=== PATIENT | female | born 1945 | race Caucasian/White ===

== ENCOUNTER 2018-08-14 01:16 | Emergency (ER) | payer MEDICARE, OTHER, SELFPAY ==
[2018-08-14 01:24] VITALS: BP 196/79; PULSE 86; RESP 16; TEMP 36.9; O2SAT 99
--- NOTE | 2018-08-14 01:40 | DI.CT_ITS ---
SYMPTOMS/DIAGNOSIS: RUQ PAIN CT OF THE ABDOMEN AND PELVIS: Images were performed from the lung bases through the ischial tuberosities after IV and without oral contrast. The lung bases are clear. A small cyst is seen in the liver. The gallbladder, spleen, pancreas, adrenals and kidneys are unremarkable. There are a few tiny right renal cysts. No renal calculi or hydronephrosis is seen. The urinary bladder, uterus and ovaries are unremarkable. There a few scattered diverticula in the sigmoid colon. There is no evidence of diverticulitis. There is a moderate quantity of stool. The appendix appears normal. The aorta is normal in diameter. IMPRESSION: No acute abnormality.
--- NOTE | 2018-08-14 01:42 | W.ED.GENAD ---
Discharge Plan Disposition Patient Disposition: HOME Condition: Good Discharge Details Chief Complaint: Abd Prob Clinical Impression: Upper abdominal pain Primary Care Provider: Dorothy Gibbs ED Provider: Isai Rosenthal Saline Meds and New Rx's Prescriptions: New sucralfate [Carafate] 1 gram tablet 1 gm PO QACHS Qty: 120 RF: 0 pantoprazole [Protonix] 40 mg tablet,delayed release (DR/EC) 40 mg PO DAILY Qty: 30 RF: 0 Continued ProAir HFA 8.5 GM HFA aerosol inhaler 2 puff Inhalation Q4H PRN Qty: 3 RF: 12 losartan 100 mg tablet 100 mg PO DAILY Qty: 90 RF: 12 simvastatin 40 mg tablet 40 mg PO HS Qty: 90 RF: 4 lorazepam 0.5 mg tablet 0.5 mg PO BID PRN (Reason: anxiety) Qty: 60 RF: 0 Discontinued famotidine 20 mg tablet 20 mg PO HS Qty: 90 RF: 4 Discharge Instructions Instructions: Abdominal Pain (ED) Additional Instructions: Your laboratory studies and your CT scan were unremarkable today. Pain seemed to get better with treatment for acid related disease so we will continue on oral medications. Please follow-up with your primary care in a couple of weeks for reevaluation and possible referral for endoscopy. Avoid alcohol, caffeine, nonsteroidals. Return to emergency department if you develop fever, worsening abdominal pain, chest pain, shortness of breath, black or bloody stool, bloody emesis. Referrals: Dorothy Gibbs MD, [place] [Primary Care Provider] - Medical Decision Making Patient presents with right upper quadrant pain that radiated through to the back. It is better now and it is unclear whether it is related to her taking hydrocodone versus resolving on its own. Had similar pain the night before as well. No associated fever, nausea, vomiting. No shortness of breath or pleuritic pain. Saturations are normal. No chest pain. No urinary symptoms. Differential includes gallbladder disease, acid related disease. Less likely pulmonary or cardiac process. Negative cardiac stress test in 2016. Abdominal exam at this point is benign. We will place an IV and get laboratory studies including one troponin. EKG to rule out evidence of ischemia though seems unlikely given her description. CT scan of the abdomen pelvis. 04:00 - Labs are unremarkable. White count is normal. Hemoglobin is normal. Kidney function baseline. LFTs and lipase normal. Troponin negative. CT scan of the abdomen/pelvis with IV contrast is unremarkable. Specifically the liver, gallbladder and pancreas are normal. On reevaluation patient states pain is coming back and radiating into the back again. On exam she continues to have a benign abdomen. Pain is epigastric/right upper quadrant and through to the back. It is not pleuritic. It is not in her chest. She is not short of breath. At this point I am leaning towards acid related disease/ulcer. On questioning she drinks coffee daily. She takes Excedrin Migraine, which includes aspirin and caffeine, on a regular basis for headaches. She does drink wine as well. She has been under a fair amount of stress with the loss of her just over a month ago. Going to go ahead and try a dose of IV Protonix and oral Carafate and reevaluate. 05:30 -patient is feeling better at this point. Pain is almost gone after IV Protonix and oral Carafate. She also had some IV Zofran. Have discussed with her the possibility of acid related disease/ulcer. We will start her on Protonix and Carafate for the next couple of weeks. Have her follow-up with primary care for reevaluation and possible referral for endoscopy. Back off on the amount of caffeine and Excedrin Migraine she uses. Return to ED for fever, worsening pain, black or bloody stool, bloody emesis, chest pain, shortness of breath. Medical Records Medical records reviewed: Yes I reviewed the patient's medical records. Lab Data Lab results reviewed: Yes I reviewed the patient's lab results. ECG Data Attestation: I personally reviewed and interpreted this ECG (s) as follows: Prior ECG tracings: not available for review Interpretation: Normal sinus rhythm at 87 with 1 PVC. Normal axis and intervals otherwise. No ST changes. HPI General Mode of arrival: ambulatory. Date/Time Provider Initiated Documentation: 08/14/18 01:33. Limitations to Documentation: no limitations. Information obtained by: patient, RN notes reviewed and old records reviewed. HPI Narrative: Patient presents with right upper quadrant abdominal pain. Initially noticed it one night ago. Seem to go away during the day. Came back tonight and was severe. It radiated straight through to the back. No associated nausea/vomiting. No fever that she is aware of. No chest pain. No pleuritic component. No shortness of breath. She ended up taking 1 of her late 's hydrocodone around midnight. Pain is now better but bothered her enough that she came into be evaluated. She has not had pain like this previously. She has had no abdominal surgeries other than a tubal ligation. Related Data Home Medications Medication Instructions Recorded Confirmed ProAir HFA 2 puff INHALATION Q4H PRN #3 03/17/16 08/14/18 canister losartan 100 mg tablet 100 mg PO DAILY #90 tab-cap 07/04/18 08/14/18 simvastatin 40 mg tablet 40 mg PO HS #90 tab-cap 07/08/18 08/14/18 lorazepam 0.5 mg tablet 0.5 mg PO BID PRN #60 tab 08/08/18 pantoprazole [Protonix] 40 mg PO DAILY #30 tab 08/14/18 sucralfate [Carafate] 1 gm PO QACHS #120 tab 08/14/18 Previous Rx's Medication Instructions Recorded losartan 100 mg tablet 100 mg PO DAILY #90 tab-cap 07/04/18 simvastatin 40 mg tablet 40 mg PO HS #90 tab-cap 07/08/18 lorazepam 0.5 mg tablet 0.5 mg PO BID PRN #60 tab 08/08/18 pantoprazole [Protonix] 40 mg PO DAILY #30 tab 08/14/18 sucralfate [Carafate] 1 gm PO QACHS #120 tab 08/14/18 Allergies Allergy/AdvReac Type Severity Reaction Status Date / Time bupropion Allergy Severe Anaphylaxis Unverified 08/14/18 01:28 Penicillins Allergy Mild Large Unverified 08/14/18 01:28 local reaction from IM injection codeine AdvReac Mild Constipatio Unverified 08/14/18 01:28 n lisinopril AdvReac Mild Cough Unverified 08/14/18 01:28 erythromycin base AdvReac Unverified 08/14/18 01:28 General Stated Complaint: Abd Prob BORIS: 3 Review of Systems Constitutional Denies chills, Denies fever(s), Denies headache(s), Denies malaise, Denies poor appetite and Denies weakness Eyes Denies change in vision, Denies eye discharge and Denies eye pain ENT Denies otalgia, Denies facial pain, Denies headache(s), Denies nasal congestion, Denies neck pain, Denies sinus pain and Denies sore throat Cardiovascular Denies chest pain, Denies diaphoresis, Denies syncope, Denies pedal edema, Denies edema, Denies lightheadedness, Denies palpitations and Denies dyspnea Respiratory Denies cough and Denies dyspnea Gastrointestinal Reports abdominal pain, Denies bloating, Denies diarrhea, Denies nausea, Denies vomiting and Denies hematemesis Genitourinary Denies hematuria, Denies dysuria, Denies pelvic pain and Denies flank pain Musculoskeletal Reports back pain, Denies myalgias, Denies arthralgias, Denies neck pain and Denies numbness Integumentary/Breasts Denies rash Neurologic Denies confusion, Denies syncope, Denies headache(s), Denies focal weakness, Denies numbness and Denies weakness Psychiatric Denies confusion Endocrine Denies palpitations COUNT INCLUDES THE [facility] Medical History Asthma (Chronic) GERD (gastroesophageal reflux disease) (Chronic) HTN (hypertension) (Chronic) Hypercholesterolemia (Chronic) Surgical History EYE SURGERY (Inactive) Open Carpal Tunnel release (Inactive) S/P tubal ligation (Inactive) Family History Mother PMR (polymyalgia rheumatica) Father Diabetes Essential hypertension Depression Heart disease Hyperlipidemia Stroke Brother Essential hypertension Hyperlipidemia Brother Diabetes Essential hypertension Heart disease Hyperlipidemia Stroke Brother Essential hypertension Heart disease Hyperlipidemia Grandfather Neoplasm Asthma Grandfather Stroke Grandmother Diabetes Heart disease Neoplasm Grandmother No problems noted. Daughter Asthma Daughter Asthma Social History Smoking and Tabacco status: Never Exam Const General: cooperative, comfortable and no acute distress Orientation: alert and oriented x3 HENMT Head: normocephalic and atraumatic Mouth: moist mucous membranes Eyes Sclera: sclerae normal Neck Neck: normal visual inspection, trachea midline and supple Chest Chest: no tenderness Resp Effort & Inspection: normal respiratory effort Auscultation: clear to auscultation bilaterally Cardio Rate: regular rate Rhythm: regular rhythm Heart Sounds: S1 normal and S2 normal Pulses: radial pulses present GI Inspection: normal to inspection and non-distended Palpation: soft, no hepatosplenomegaly, not firm, no guarding and nontender Auscultation: normal bowel sounds Back/Spine/Pelvis Back: no CVA tenderness Skin Rashes: no rashes Neuro General: alert, oriented x3, gait normal, no focal motor deficits and CN's II-XI intact bilaterally Extrem General: normal to inspection, full ROM and no clubbing, cyanosis or edema Course Vital Signs Temperature 98.4 F 08/14/18 01:24 Pulse 86 08/14/18 01:24 Respiratory Rate 16 08/14/18 01:24 Blood Pressure 196/79 H 08/14/18 01:24 Pulse Oximetry 99 08/14/18 01:24 Temperature 98.4 F 08/14/18 01:24 Temperature Source Temporal Artery Scan 08/14/18 01:24 Pulse 86 08/14/18 01:24 Respiratory Rate 16 08/14/18 01:24 Blood Pressure 196/79 H 08/14/18 01:24 Blood Pressure Position Sitting 08/14/18 01:24 Pulse Oximetry 99 08/14/18 01:24 Oxygen Delivery Method Room Air 08/14/18 01:24 Oxygen Flow Rate 0 08/14/18 01:24 Pain Level 8 08/14/18 01:33
--- NOTE | 2018-08-14 01:52 | ED.GENADUL_ITS ---
Discharge Plan Disposition Patient Disposition: HOME Condition: Good Discharge Details Chief Complaint: Abd Prob Clinical Impression: Upper abdominal pain Primary Care Provider: Dorothy Gibbs ED Provider: Isai Rosenthal [place] Meds and New Rx's Prescriptions: New sucralfate [Carafate] 1 gram tablet 1 gm PO QACHS Qty: 120 RF: 0 pantoprazole [Protonix] 40 mg tablet,delayed release (DR/EC) 40 mg PO DAILY Qty: 30 RF: 0 Continued ProAir HFA 8.5 GM HFA aerosol inhaler 2 puff Inhalation Q4H PRN Qty: 3 RF: 12 losartan 100 mg tablet 100 mg PO DAILY Qty: 90 RF: 12 simvastatin 40 mg tablet 40 mg PO HS Qty: 90 RF: 4 lorazepam 0.5 mg tablet 0.5 mg PO BID PRN (Reason: anxiety) Qty: 60 RF: 0 Discontinued famotidine 20 mg tablet 20 mg PO HS Qty: 90 RF: 4 Discharge Instructions Instructions: Abdominal Pain (ED) Additional Instructions: Your laboratory studies and your CT scan were unremarkable today. Pain seemed to get better with treatment for acid related disease so we will continue on oral medications. Please follow-up with your primary care in a couple of weeks for reevaluation and possible referral for endoscopy. Avoid alcohol, caffeine, nonsteroidals. Return to emergency department if you develop fever, worsening abdominal pain, chest pain, shortness of breath, black or bloody stool, bloody emesis. Referrals: Dorothy Gibbs MD, [place] [Primary Care Provider] - Medical Decision Making Patient presents with right upper quadrant pain that radiated through to the back. It is better now and it is unclear whether it is related to her taking hydrocodone versus resolving on its own. Had similar pain the night before as well. No associated fever, nausea, vomiting. No shortness of breath or pleuritic pain. Saturations are normal. No chest pain. No urinary symptoms. Differential includes gallbladder disease, acid related disease. Less likely pulmonary or cardiac process. Negative cardiac stress test in 2016. Abdominal exam at this point is benign. We will place an IV and get laboratory studies including one troponin. EKG to rule out evidence of ischemia though seems unlikely given her description. CT scan of the abdomen pelvis. 04:00 - Labs are unremarkable. White count is normal. Hemoglobin is normal. K idney function baseline. LFTs and lipase normal. Troponin negative. CT scan of the abdomen/pelvis with IV contrast is unremarkable. Specifically the liver, gallbladder and pancreas are normal. On reevaluation patient states pain is coming back and radiating into the back again. On exam she continues to have a benign abdomen. Pain is epigastric/right upper quadrant and through to the back. It is not pleuritic. It is not in her chest. She is not short of breath. At this point I am leaning towards acid related disease/ulcer. On questioning she drinks coffee daily. She takes Excedrin Migraine, which includes aspirin and caffeine, on a regular basis for headaches. She does drink wine as well. She has been under a fair amount of stress with the loss of her just over a month ago. Going to go ahead and try a dose of IV Protonix and oral Carafate and reevaluate. 05:30 -patient is feeling better at this point. Pain is almost gone after IV Protonix and oral Carafate. She also had some IV Zofran. Have discussed with her the possibility of acid related disease/ulcer. We will start her on Protonix and Carafate for the next couple of weeks. Have her follow-up with [facility] care for reevaluation and possible referral for endoscopy. Back off on the amount of caffeine and Excedrin Migraine she uses. Return to ED for fever, worsening pain, black or bloody stool, bloody emesis, chest pain, shortness of breath. Medical Records Medical records reviewed: Yes I reviewed the patient's medical records. Lab Data Lab results reviewed: Yes I reviewed the patient's lab results. ECG Data Attestation: I personally reviewed and interpreted this ECG (s) as follows: Prior ECG tracings: not available for review Interpretation: Normal sinus rhythm at 87 with 1 PVC. Normal axis and intervals otherwise. No ST changes. HPI General Mode of arrival: ambulatory . Date/Time Provider Initiated Documentation: 08/14/18 01:33 . Limitations to Documentation: no limitations . Information obtained by: patient, RN notes reviewed and old records reviewed . HPI Narrative: Patient presents with right upper quadrant abdominal pain. Initially noticed it one night ago. Seem to go away during the day. Came back tonight and was severe. It radiated straight through to the back. No associated nausea/vomiting. No fever that she is aware of. No chest pain. No pleuritic component. No shortness of breath. She ended up taking 1 of her late 's hydrocodone around midnight. Pain is now better but bothered her enough that she came into be evaluated. She has not had pain like this previously. She has had no abdominal surgeries other than a tubal ligation. Related Data Home Medications Medication Instructions Recorded Confirmed ProAir HFA 2 puff INHALATION Q4H PRN #3 03/17/16 08/14/18 canister losartan 100 mg tablet 100 mg PO DAILY #90 tab-cap 07/04/18 08/14/18 simvastatin 40 mg tablet 40 mg PO HS #90 tab-cap 07/08/18 08/14/18 lorazepam 0.5 mg tablet 0.5 mg PO BID PRN #60 tab 08/08/18 pantoprazole [Protonix] 40 mg PO DAILY #30 tab 08/14/18 sucralfate [Carafate] 1 gm PO QACHS #120 tab 08/14/18 Previous Rx's Medication Instructions Recorded losartan 100 mg tablet 100 mg PO DAILY #90 tab-cap 07/04/18 simvastatin 40 mg tablet 40 mg PO HS #90 tab-cap 07/08/18 lorazepam 0.5 mg tablet 0.5 mg PO BID PRN #60 tab 08/08/18 pantoprazole [Protonix] 40 mg PO DAILY #30 tab 08/14/18 sucralfate [Carafate] 1 gm PO QACHS #120 tab 08/14/18 Allergies Allergy/AdvReac Type Severity Reaction Status Date / Time bupropion Allergy Severe Anaphylaxis Unverified 08/14/18 01:28 Penicillins Allergy Mild Large Unverified 08/14/18 01:28 local reaction from IM injection codeine AdvReac Mild Constipatio Unverified 08/14/18 01:28 n lisinopril AdvReac Mild Cough Unverified 08/14/18 01:28 erythromycin base AdvReac Unverified 08/14/18 01:28 General Stated Complaint: Abd Prob BORIS: 3 Review of Systems Constitutional Denies chills, Denies fever(s), Denies headache(s), Denies malaise, Denies poor appetite and Denies weakness Eyes Denies change in vision, Denies eye discharge and Denies eye pain ENT Denies otalgia, Denies facial pain, Denies headache(s), Denies nasal congestion, Denies neck pain, Denies sinus pain and Denies sore throat Cardiovascular Denies chest pain, Denies diaphoresis, Denies syncope, Denies pedal edema, Denies edema, Denies lightheadedness, Denies palpitations and Denies dyspnea Respiratory Denies cough and Denies dyspnea Gastrointestinal Reports abdominal pain, Denies bloating, Denies diarrhea, Denies nausea, Denies vomiting and Denies hematemesis Genitourinary Denies hematuria, Denies dysuria, Denies pelvic pain and Denies flank pain Musculoskeletal Reports back pain, Denies myalgias, Denies arthralgias, Denies neck pain and Denies numbness Integumentary/Breasts Denies rash Neurologic Denies confusion, Denies syncope, Denies headache(s), Denies focal weakness, Denies numbness and Denies weakness Psychiatric Denies confusion Endocrine Denies palpitations [facility] Medical History Asthma (Chronic) GERD (gastroesophageal reflux disease) (Chronic) HTN (hypertension) (Chronic) Hypercholesterolemia (Chronic) Surgical History EYE SURGERY (Inactive) Open Carpal Tunnel release (Inactive) S/P tubal ligation (Inactive) Family History Mother PMR (polymyalgia rheumatica) Father Diabetes Essential hypertension Depression Heart disease Hyperlipidemia Stroke Brother Essential hypertension Hyperlipidemia Brother Diabetes Essential hypertension Heart disease Hyperlipidemia Stroke Brother Essential hypertension Heart disease Hyperlipidemia Grandfather Neoplasm Asthma Grandfather Stroke Grandmother Diabetes Heart disease Neoplasm Grandmother No problems noted. Daughter Asthma Daughter Asthma Social History Smoking and Tabacco status: Never Exam Const General: cooperative, comfortable and no acute distress Orientation: alert and oriented x3 HENMT Head: normocephalic and atraumatic Mouth: moist mucous membranes Eyes Sclera: sclerae normal Neck Neck: normal visual inspection, trachea midline and supple Chest Chest: no tenderness Resp Effort & Inspection: normal respiratory effort Auscultation: clear to auscultation bilaterally Cardio Rate: regular rate Rhythm: regular rhythm Heart Sounds: S1 normal and S2 normal Pulses: radial pulses present GI Inspection: normal to inspection and non-distended Palpation: soft, no hepatosplenomegaly, not firm, no guarding and nontender Auscultation: normal bowel sounds Back/Spine/Pelvis Back: no CVA tenderness Skin Rashes: no rashes Neuro General: alert, oriented x3, gait normal, no focal motor deficits and CN's II-XI intact bilaterally Extrem General: normal to inspection, full ROM and no clubbing, cyanosis or edema Course Vital Signs Temperature 98.4 F 08/14/18 01:24 Pulse 86 08/14/18 01:24 Respiratory Rate 16 08/14/18 01:24 Blood Pressure 196/79 H 08/14/18 01:24 Pulse Oximetry 99 08/14/18 01:24 Temperature 98.4 F 08/14/18 01:24 Temperature Source Temporal Artery Scan 08/14/18 01:24 Pulse 86 08/14/18 01:24 Respiratory Rate 16 08/14/18 01:24 Blood Pressure 196/79 H 08/14/18 01:24 Blood Pressure Position Sitting 08/14/18 01:24 Pulse Oximetry 99 08/14/18 01:24 Oxygen Delivery Method Room Air 08/14/18 01:24 Oxygen Flow Rate 0 08/14/18 01:24 Pain Level 8 08/14/18 01:33
[2018-08-14] MEDS: Lactated Ringers 1,000 ML 125 ML IV (02:06)
[2018-08-14] MEDS: Normal Saline Flush 10 ML SYR IVP ×3 (02:07→04:44)
[2018-08-14 02:11] LABS: Abs Immature Grans 0.02 k/cumm (0.0-0.09); Absolute Basophil Count 0.06 k/cumm (0.0-0.2); Absolute Lymphocyte Count 3.06 k/cumm (1.2-3.4); Absolute Monocyte Count 0.85 k/cumm (0.11-0.7); Absolute Neutrophil Count 3.52 k/cumm (1.2-6.7); Basophils % 0.7; Eosinophils % 6.2; HCT 40.8 % (36.0-46.0); HGB 13.4 g/dL (12.0-15.5); Immature Grans % 0.2; Lymphocytes % 38.2; Mean Corp. HGB Concentration 32.8 g/dL (32.0-36.0); Mean Corpuscular Hemoglobin 30.1 pg (27.0-33.0); Mean Corpuscular Volume 91.7 fL (80-95); Mean Platelet Volume 11.3 fL (8.0-11.0); Monocytes % 10.6; Neutrophils % 44.1; Platelet Count 278 x1000/uL (130-400); RBC 4.45 m/cumm (4.00-5.20); RBC Distribution Width 12.4 % (11.7-14.6); White Blood Cell Count 8.01 k/cumm (4.4-10.8)
[2018-08-14 02:24] LABS: ALT 25 U/L (12-78); AST 20 U/L (15-37); Alkaline Phosphatase 71 U/L (46-116); Anion Gap 8.6 mmol/L (3-11); BUN 21 mg/dL (7-18); Bilirubin, Total 0.4 mg/dL (0.2-1.0); CO2 29.4 mmol/L (21.0-32.0); CREATININE 1.13 mg/dL (0.55-1.02); Calcium 9.1 mg/dL (8.5-10.1); Chloride 104 mmol/L (98-107); Glucose 112 mg/dL (70-100); Lipase 171 U/L (73-393); Magnesium 2.1 mg/dL (1.8-2.4); Potassium 3.9 mmol/L (3.5-5.1); Sodium 142 mmol/L (136-145); Total Protein 7.8 g/dL (6.4-8.2); Troponin I < 0.02 ng/mL (0.00-0.06)
[2018-08-14] MEDS: Omnipaque 350 MG/ML 100 ML BTL IJ (02:35)
--- NOTE | 2018-08-14 03:37 | DI.VRAD_ITS ---
EXAM: CT Abdomen and Pelvis With Contrast EXAM DATE/TIME: 08/14/2018 1:42 AM CLINICAL HISTORY: 72 years old, female; Pain; Abdominal pain; Localized; Right upper quadrant (ruq); Patient HX: Ruq pain; Per PT: Pain traveling from under rib to back TECHNIQUE: Axial computed tomography images of the abdomen and pelvis with intravenous contrast. Coronal and sagittal reformatted images were created and reviewed. COMPARISON: No relevant prior studies available. FINDINGS: Lower thorax: Unremarkable. ABDOMEN: Liver: No suspicious lesions. Gallbladder and bile ducts: No acute or concerning findings. Pancreas: Unremarkable. No ductal dilation. Spleen: No suspicious lesions. Adrenals: Unremarkalbe. No suspicious mass. Kidneys and ureters: Unremarkable. No hydro. No suspicious lesions. Stomach and bowel: Colonic diverticulosis. Appendix: No evidence of appendicitis. PELVIS: Bladder: Unremarkable as visualized. Reproductive: Unremarkable as visualized. ABDOMEN and PELVIS: Intraperitoneal space: No free air. No significant fluid collection. Bones/joints: No acute fracture. No dislocation. Soft tissues: Unremarkable. Vasculature: Unremarkable. No acute findings Lymph nodes: Unremarkable. IMPRESSION: No acute findings. Dictated and Authenticated by: Gaurang Arreaga MD. Ordering:ALAYNA Alex MD
[2018-08-14] MEDS: Sucralfate 1 GM TAB PO (04:14)
[2018-08-14] MEDS: Pantoprazole 40 MG VIAL IVP (04:14)
[2018-08-14] MEDS: Ondansetron 4 MG/2 ML VIAL IVP (04:43)
[2018-08-14 05:15] LABS: Bilirubin Negative (Negative); Blood Negative (Negative); Clarity Clear; Glucose Negative (Negative); Ketones Negative (Negative); Leukocyte Esterase Negative (Negative); Nitrite Negative (Negative); Specific Gravity 1.015 (1.005-1.025); Urobilinogen 0.2 EU/dL (Up TO 0.2); pH 7.5 (5-8)
[2018-08-14 05:44] VITALS: BP 157/69; PULSE 81; RESP 16; O2SAT 100
== END 2018-08-14 05:43 | disposition home or self-care (01) ==
PROVIDERS: Emergency Provider Emergency Medicine; PCP Family Medicine
DX: R10.11 Right upper quadrant pain (principal); R10.13 Epigastric pain; K21.9 Gastro-esophageal reflux disease without esophagitis; I10 Essential (primary) hypertension
CPT/HCPCS: 36415; 80053; 83690; 93005; 96361; 96374; 96375; 99285; 74177; 81003; 83735; 84484; 85025; 93010; J2405; J3490

== ENCOUNTER 2018-09-08 00:36 | Outpatient (CLI) | payer MEDICARE, OTHER, SELFPAY ==
--- NOTE | 2018-09-08 07:04 | DI.RAD_ITS ---
SYMPTOMS/DIAGNOSIS: RLL PAIN, PNEUMONIA, J18.1 PA AND LATERAL CHEST: No priors. The heart is normal in size. The lungs are clear. The mediastinal structures and pleura appear intact. CONCLUSION: Normal chest.
--- NOTE | 2018-09-08 09:43 | DI.MAMMO_ITS ---
SYMPTOMS/DIAGNOSIS: SCREENING, Z12.31 MAMMOGRAM: Mammograms were interpreted according to the usual protocol including computer analysis with CAD system, tomosynthesis and C view imaging. The breast tissue is of moderate radiodensity. When compared with previous images, there is a question regarding interval development of a very small area of nodularity in the subareolar portion of the right breast. This findings suggested on the craniocaudad projection. There are no suspicious calcifications. SUMMARY: Question interval development of a right breast nodule as described above. Further assessment with a craniocaudad compression spot film and ultrasound is recommended. Category 0. Breast density Category B. MQSA ASSESSMENT OF FINDINGS: Incomplete: Needs additional imaging evaluation. Category 0. Patient will receive a letter notifying them of these results. BI-RADS category B. There are scattered areas of fibroglandular density.
[2018-09-08 11:40] LABS: ALT 50 U/L (12-78); AST 21 U/L (15-37); Albumin 4.2 g/dL (3.4-5.0); Alkaline Phosphatase 64 U/L (46-116); BUN 19 mg/dL (7-18); Bilirubin, Total 0.6 mg/dL (0.2-1.0); CREATININE 1.09 mg/dL (0.55-1.02); Calcium 9.9 mg/dL (8.5-10.1); Chloride 106 mmol/L (98-107); Cholesterol 147 mg/dL (50-200); Estimated GFR 49.62 (mL/min/1.73m2); Glucose 98 mg/dL (70-100); HDL Cholesterol 42 mg/dL (40-60); LDL CHOLESTEROL 86 mg/dL (<100); Sodium 144 mmol/L (136-145); Total Protein 7.1 g/dL (6.4-8.2); Triglyceride 108 mg/dL (30-150)
[2018-09-08 12:16] LABS: Vitamin D 25 Total 45.4 ng/ml (30-100)
== END 2018-09-08 00:56 ==
PROVIDERS: PCP Family Medicine; Visit Provider Family Medicine
DX: Z13.21 Encounter for screening for nutritional disorder (principal); R92.8 Other abnormal and inconclusive findings on diagnostic imaging of breast; J18.1 Lobar pneumonia, unspecified organism; M85.80 Other specified disorders of bone density and structure, unspecified site; I10 Essential (primary) hypertension; Z12.31 Encounter for screening mammogram for malignant neoplasm of breast
CPT/HCPCS: 36415; 77063; 77067; 80053; 80061; 82306; 83721; 71046

== ENCOUNTER 2018-09-16 01:41 | Outpatient (CLI) | payer MEDICARE, OTHER, SELFPAY ==
--- NOTE | 2018-09-16 14:10 | DI.COMBO_ITS ---
SYMPTOMS/DIAGNOSIS: F/U ABNORMAL MAMMO, SMALL AREA OF NODULARITY IN SUBAREOLAR PORTION OF RIGHT BREAST ADDITIONAL VIEWS OF THE RIGHT BREAST AND A RIGHT BREAST ULTRASOUND: Additional images are interpreted according to the usual protocol including tomosynthesis and 2D imaging. Additional views of the right breast fail to show a persistent discrete mass. Breast density B. A right breast ultrasound was performed. The upper outer and lower outer quadrants of the right breast were evaluated sonographically. No cystic or solid masses are seen. IMPRESSION: No evidence for malignancy. Yearly mammography is recommended. Category 1. The findings were discussed with the patient on the date of the examination. SA ASSESSMENT OF FINDINGS: Negative. Category 1. Patient will receive a letter notifying them of these results. BI-RADS category B. There are scattered areas of fibroglandular density.
== END 2018-09-16 02:01 ==
PROVIDERS: PCP Family Medicine; Visit Provider Family Medicine
DX: Z12.31 Encounter for screening mammogram for malignant neoplasm of breast (principal); R92.8 Other abnormal and inconclusive findings on diagnostic imaging of breast; N64.59 Other signs and symptoms in breast
CPT/HCPCS: 76642; 77063; 77067

== ENCOUNTER 2019-02-28 10:17 | Outpatient (CLI) | payer MEDICARE, OTHER, SELFPAY ==
--- NOTE | 2019-02-28 09:30 | DI.RAD_ITS ---
SYMPTOM/DIAGNOSIS: RT SHOULDER PAIN M25.511, ? DISLOCATED AND SPONTANEOUS RELOCATED. RIGHT SHOULDER: 02/28 Five views were obtained. There are mild degenerative changes of the acromioclavicular and glenohumeral joints. There is no evidence of acute fracture or dislocation.
== END 2019-02-28 10:37 ==
PROVIDERS: PCP Family Medicine; Visit Provider Family Medicine
DX: M25.511 Pain in right shoulder (principal); M19.011 Primary osteoarthritis, right shoulder
CPT/HCPCS: 73030

== ENCOUNTER 2020-07-16 18:50 | Outpatient (REF) | payer MEDICARE, OTHER, SELFPAY ==
[2020-07-16 22:03] LABS: ALT 43 U/L (14-59); AST 22 U/L (15-37); Albumin 4.3 g/dL (3.4-5.0); Alkaline Phosphatase 77 U/L (46-116); Anion Gap 3.6 mmol/L (3-11); BUN 25 mg/dL (7-18); Bilirubin, Total 0.3 mg/dL (0.2-1.0); CO2 30.4 mmol/L (21.0-32.0); CREATININE 1.26 mg/dL (0.55-1.02); Calcium 10.1 mg/dL (8.5-10.1); Calculated LDL 101 mg/dL (<100); Chloride 104 mmol/L (98-107); Cholesterol 200 mg/dL (<200); Estimated GFR 41.74 (mL/min/1.73m2); Glucose 102 mg/dL (74-106); HDL Cholesterol 46 mg/dL (40-60); Potassium 4.4 mmol/L (3.5-5.1); Sodium 138 mmol/L (136-145); TSH (W/Ref FT4) 1.24 uIU/mL (0.36-3.74); Total Protein 7.5 g/dL (6.4-8.2); Triglyceride 268 mg/dL (<150); Vitamin B12 271 pg/mL (193-986)
[2020-07-18 04:43] LABS: Vitamin D 25 Total 57.6 ng/ml (30-100)
== END 2020-07-16 19:10 ==
LOC: LBN 18:50
PROVIDERS: PCP Family Medicine; Visit Provider Family Medicine
DX: E78.5 Hyperlipidemia, unspecified (principal); F32.9 Major depressive disorder, single episode, unspecified; I10 Essential (primary) hypertension; M81.0 Age-related osteoporosis without current pathological fracture
CPT/HCPCS: 80053; 80061; 82306; 82607; 84443

== ENCOUNTER 2020-07-25 00:47 | Outpatient (CLI) | payer MEDICARE, OTHER, SELFPAY ==
--- NOTE | 2020-07-25 08:00 | DI.RAD_ITS ---
EXAM: XR LUMBAR SPINE COMPLETE CLINICAL HISTORY: LOW BACK PAIN, ACUTE BILAT, M54.5. TECHNIQUE: 2D digital imaging was performed. COMPARISON: No exams were available for comparison FINDINGS: There is a mild right curvature of the lumbar spine. This may be due to patient positioning. There is mild narrowing of the disc spaces L1-L2 and L2-L3. Endplate osteophytes are seen at multiple leve ls of the lumbar spine. There is no spondylolysis or spondylolisthesis. There are degenerative lee ges seen at the facet joints at L4-5 and L5-S1. No acute fracture or subluxation is present. IMPRESSION: Mild degenerative changes in the lumbar spine. DATA REPOSITORY: RADIATION DOSE DELIVERED:
--- NOTE | 2020-07-25 08:00 | DI.MAMMO_ITS ---
EXAM: MG MAMMO SCREENING CLINICAL HISTORY: screening,Z12.39 TECHNIQUE: Bilateral full field digital CC and MLO mammographic images were obtained with 3D tomosyn thesis and utilizing computer aided detection (CAD). COMPARISON: Available for comparison. FINDINGS: Masses/Architectural Distortion: None seen. Microcalcifications: No suspicious pleomorphic-type are seen. Skin Thickening/Nipple Retraction: None. IMPRESSION: 1. No significant interval change with no specific features of malignancy noted. 2. Unless there is more urgent need, screening mammography is recommended, as per [employer] guidelines. BI-RADS Category 1 - Negative Breast Density - Category B - Scattered areas of fibroglandular density Breast density category C or D implies that the patient has dense breast tissue. Dense breast tissue is very common and is not abnormal but dense breast tissue can make it harder to find cancer on a ma mmogram. Also, dense breast tissue may increase their breast cancer risk. This information about the result of the mammogram report was provided to the patient to raise their awareness. Use this report when you speak with the patient about their risks for breast cancer, which includes their family hist ory. At that time, you may recommend for more screening tests (Ultrasound or MRI) as they might be us eful based on their risk. A negative radiographic report should not delay biopsy if a dominant or clinically suspicious mass is present. Up to ten percent of cancers are not identified on mammography. A negative report may reinforce clinical impression. Adenosis and dense breasts may obscure an underlying neoplasm. False positive reports average 6 to 10%. Patient will receive a letter notifying them of these results.
--- NOTE | 2020-07-25 08:00 | DI.DEXA_ITS ---
EXAM: XR DEXA BONE DENSITY W/WO URI CLINICAL HISTORY: osteoporosis,M81.0 TECHNIQUE: COMPARISON: Comparison is 11/18/2005. FINDINGS: Lateral Spine Image: Unremarkable. No compression deformities identified. Left hip: Total T-Score: -2.0. This compares with -1.3 on the prior examination. Total Z-Score: -0.4 T- and Z-scores: Findings are consistent with osteopenia. Lumbar Spine: Total T-Score: -2.1. This compares with -1.3 on the prior examination. Total Z-Score: 0.2 T- and Z-scores: Findings are consistent with osteopenia. IMPRESSION: Osteopenia in the left hip and lumbar spine.
== END 2020-07-25 00:48 | disposition home or self-care (01) ==
LOC: DI 00:47
PROVIDERS: PCP Family Medicine; Visit Provider Family Medicine
DX: Z12.31 Encounter for screening mammogram for malignant neoplasm of breast (principal); M47.816 Spondylosis without myelopathy or radiculopathy, lumbar region; M85.89 Other specified disorders of bone density and structure, multiple sites; M81.0 Age-related osteoporosis without current pathological fracture
CPT/HCPCS: 77063; 77067; 77080; 72110

== ENCOUNTER 2021-05-05 19:11 | Outpatient (REF) | payer MEDICARE, OTHER, SELFPAY ==
[2021-05-07 12:53] LABS: COVID-19 RT-PCR UVMMC Result Negative (Negative)
== END 2021-05-05 19:12 | disposition home or self-care (01) ==
LOC: LBN 19:11
PROVIDERS: PCP Family Medicine; Visit Provider Family Medicine
DX: Z20.822 Contact with and (suspected) exposure to COVID-19 (principal)
CPT/HCPCS: U0003

== ENCOUNTER 2021-08-19 19:14 | Outpatient (CLI) | payer MEDICARE, SELFPAY ==
[2021-08-19 16:55] LABS: Abs Immature Grans 0.02 10^3/uL (0.0-0.06); Absolute Basophil Count 0.09 10^3/uL (0.0-0.2); Absolute Eosinophil Count 0.31 10^3/uL (0.0-0.7); Absolute Lymphocyte Count 2.54 10^3/uL (1.2-3.4); Absolute Monocyte Count 0.89 10^3/uL (0.1-0.8); Absolute Neutrophil Count 4.26 10^3/uL (1.2-6.7); Basophils % 1.1; Eosinophils % 3.8; HGB 12.9 g/dL (11.2-15.7); Immature Grans % 0.2; Lymphocytes % 31.3; MCH 29.9 pg (27.0-33.0); MCHC 32.3 % (32.0-36.0); MCV 92.8 fL (80-95); Neutrophils % 52.6; Nucleated RBC 0 %; Platelet Count 316 10^3/uL (130-400); RBC 4.31 10^6/uL (3.93-5.22); RDW 12.1 % (11.7-14.6); RDW-SD 41.8 fL; WBC 8.11 10^3/uL (4.4-10.8)
[2021-08-19 17:01] LABS: ESR 2 mm/hr (0-30)
[2021-08-19 17:06] LABS: C-Reactive Protein < 0.05 mg/dL (0.0-0.3)
== END 2021-08-19 19:15 | disposition home or self-care (01) ==
LOC: LBO 19:18
PROVIDERS: PCP Family Medicine
DX: M31.6 Other giant cell arteritis (principal)
CPT/HCPCS: 36415; 85652; 85025; 86140

== ENCOUNTER 2021-09-03 01:33 | Outpatient (CLI) | payer MEDICARE, SELFPAY ==
[2021-09-03 08:59] LABS: CREATININE 1.1 mg/dL (0.55-1.02); Estimated GFR 48.69 (mL/min/1.73m2)
[2021-09-03] MEDS: Normal Saline Flush 10 ML SYR IVP (09:12)
[2021-09-03] MEDS: Gadoterate meglumine 20 ML VIAL 11 ML IVP (09:13)
--- NOTE | 2021-09-03 10:10 | DI.MRI_ITS ---
Exam(s) MR ORBIT FACIAL NECK WO/W EXAM: MR ORBIT FACIAL NECK WO/W CLINICAL HISTORY: optic nerve swelling on optometry exam - right TECHNIQUE: Multiplanar multisequence MRI was performed. COMPARISON: MR MR BRAIN WO/W from 09/03/2021 FINDINGS: ORBITS: The anterior and posterior chambers of the globes are intact. The retrobulbar fat is unremark able. Extraocular muscles are unremarkable. OPTIC NERVES: The intracranial and extracranial portions of the optic nerves are within normal limits . Optic chiasm is within normal limits. No MRI evidence of optic neuritis identified. SOFT TISSUES: No abnormality at the level of the lacrimal glands. OTHER FINDINGS: Cavernous sinuses appear unremarkable. Pituitary gland unremarkable. No aneurysms e vident in the field of view of this study. IMPRESSION: No significant findings on this MRI scan of the orbits. DATA REPOSITORY:
--- NOTE | 2021-09-03 10:10 | DI.MRI_ITS ---
Exam(s) MR BRAIN WO/W EXAM: MR BRAIN WO/W CLINICAL HISTORY: optic nerve swelling on optometry exam - right,h47.10 TECHNIQUE: Multiplanar multisequence MRI of the brain was performed. Both noninfused and contrast i nfused sequences were performed. IV Contrast injected was cc Dotarem. COMPARISON: No exams were available for comparison FINDINGS: CEREBRAL PARENCHYMA: No evidence of intracranial hemorrhage, mass effect nor shift of midline structu re. No extraaxial fluid collections. Ventricles are not enlarged nor shifted. There is no significant focal signal abnormality in the cerebellar hemispheres nor within the brenda, m idbrain, and thalami. There is no prominent abnormal signal abnormality in the periventricular white matter. There is a ti ny focus of signal abnormality measuring 3 millimeters in the left periventricular white matter which is a nonspecific finding and is not associated with hemorrhage or surrounding edema nor enhancement following contrast injection and there is also no evidence of restricted diffusion at this level to s uggest that it represents an acute area of ischemia There are no ring enhancing lesions in the brain. There is no abnormal meningeal enhancement. No evidence of microhemorrhages on susceptibility imaging. PITUITARY GLAND: No mass nor parasellar abnormality. No obvious abnormality in the cavernous sinuses. FLOW VOIDS: The expected flow void are noted. No evidence of obvious aneurysm nor obvious vascular ma lformation. PARANASAL SINUSES: The visualized paranasal sinuses appear unremarkable. ORBITS: See separate MRI orbit report IMPRESSION: 1. No significant intracranial findings on this MRI scan of the brain. 2. No abnormal enhancing intracranial finding. DATA REPOSITORY:
== END 2021-09-03 01:53 ==
PROVIDERS: PCP Family Medicine; Visit Provider Family Medicine
DX: H47.10 Unspecified papilledema (principal)
CPT/HCPCS: 70553; 70543; 82565

== ENCOUNTER 2021-09-30 23:46 | Outpatient (RCR) | payer MEDICARE, SELFPAY ==
--- NOTE | 2021-09-30 09:00 | HOLTER_ITS ---
APPROVED REPORT Conclusion This is a 48-hour Holter monitor ordered for tachycardia Predominant rhythm was sinus with an average heart rate of 84. Minimum was 59, maximum 144 There were occasional premature ventricular contractions, rare couplets, no triplets or ventricular t achycardia There were rare isolated premature atrial contractions There were 5 atrial runs, the longest of which was 8 beats in duration There was no atrial fibrillation, no high-grade AV block, no pauses greater than 3 seconds No patient symptoms were reported
== END 2021-10-18 23:59 | disposition home or self-care (01) ==
LOC: RT 23:46
PROVIDERS: PCP Family Medicine; Visit Provider Family Medicine
DX: R00.0 Tachycardia, unspecified (principal); I49.3 Ventricular premature depolarization; I49.1 Atrial premature depolarization
CPT/HCPCS: 93227; 93225; 93226

== ENCOUNTER → 2022-01-22 02:02 | Outpatient (CLI) | payer MEDICARE, SELFPAY ==
--- NOTE | 2022-01-22 06:45 | DI.MAMMO_ITS ---
Exam(s) MAMMO SCREENING EXAM: MAMMO SCREENING CLINICAL HISTORY: screening,z12.39 TECHNIQUE: Mammograms were interpreted according to the usual protocol including computer analysis w [employer] CAD system, tomosynthesis and C-view imaging. COMPARISON: 2011 through 2020 FINDINGS: The breasts are composed of scattered fibroglandular densities, Breast Density category B. No suspicious masses or suspicious microcalcifications are seen. No skin thickening or abnormal axillary lymph nodes are seen. There has been no significant change from prior exams. IMPRESSION: BI-RADS Category 1, Negative mammogram Yearly screening mammography is recommended. Breast Density - Category B, scattered fibroglandular densities. A negative radiographic report should not delay biopsy if a dominant or clinically suspicious mass is present. Up to ten percent of cancers are not identified on mammography. A negative report may reinforce clinical impression. Adenosis and dense breasts may obscure an underlying neoplasm. False positive reports average 6 to 10%. Patient will receive a letter notifying them of these results.
== END ==
PROVIDERS: PCP Family Medicine; Visit Provider Family Medicine
DX: Z12.31 Encounter for screening mammogram for malignant neoplasm of breast (principal)
CPT/HCPCS: 77063; 77067

== ENCOUNTER 2022-02-06 00:59 | Outpatient (CLI) | payer MEDICARE, SELFPAY ==
[2022-02-06 12:55] LABS: ESR 8 mm/hr (0-30)
[2022-02-06 13:06] LABS: ALT 32 U/L (14-59); AST 32 U/L (15-37); Albumin 4.2 g/dL (3.4-5.0); Alkaline Phosphatase 69 U/L (46-116); Anion Gap 9.3 mmol/L (3-11); BUN 19 mg/dL (7-18); Bilirubin, Total 0.8 mg/dL (0.2-1.0); CO2 27.7 mmol/L (21.0-32.0); CREATININE 1.1 mg/dL (0.55-1.02); Calcium 9.4 mg/dL (8.5-10.1); Calculated LDL 79 mg/dL (<100); Chloride 102 mmol/L (98-107); Cholesterol 142 mg/dL (<200); Estimated GFR 48.55 (mL/min/1.73m2); Glucose 99 mg/dL (74-106); HDL Cholesterol 52 mg/dL (40-60); Potassium 4.7 mmol/L (3.5-5.1); Sodium 139 mmol/L (136-145); TSH (W/Ref FT4) 1.76 uIU/mL (0.36-3.74); Total Protein 7.8 g/dL (6.4-8.2); Triglyceride 57 mg/dL (<150)
[2022-02-06 13:07] LABS: Hemoglobin A1C 6.1 % (<5.7)
== END 2022-02-06 01:00 | disposition home or self-care (01) ==
LOC: LOS 00:59
PROVIDERS: PCP Family Medicine; Visit Provider Family Medicine
DX: I10 Essential (primary) hypertension (principal); E78.5 Hyperlipidemia, unspecified; E11.9 Type 2 diabetes mellitus without complications; M85.88 Other specified disorders of bone density and structure, other site; H47.093 Other disorders of optic nerve, not elsewhere classified, bilateral
CPT/HCPCS: 36415; 80053; 80061; 85652; 83036; 84443

== ENCOUNTER 2023-02-11 10:55 | Outpatient (CLI) | payer MEDICARE, SELFPAY ==
[2023-02-11 13:42] LABS: ALT 31 U/L (14-59); AST 18 U/L (15-37); Alkaline Phosphatase 69 U/L (46-116); BUN 19 mg/dL (7-18); Bilirubin, Total 0.8 mg/dL (0.2-1.0); CREATININE 1.2 mg/dL (0.55-1.02); Calculated LDL 63 mg/dL (<100); Chloride 104 mmol/L (98-107); Cholesterol 126 mg/dL (<200); Estimated GFR 47.21 (mL/min/1.73m2); Glucose 98 mg/dL (74-106); HDL Cholesterol 48 mg/dL (40-60); Potassium 4.1 mmol/L (3.5-5.1); Sodium 139 mmol/L (136-145); Total Protein 7.4 g/dL (6.4-8.2); Triglyceride 76 mg/dL (<150)
== END 2023-02-11 10:56 | disposition home or self-care (01) ==
LOC: LOS 10:56
PROVIDERS: PCP Family Medicine; Referring Provider Family Medicine; Visit Provider Family Medicine
DX: I10 Essential (primary) hypertension (principal); E11.9 Type 2 diabetes mellitus without complications; E78.5 Hyperlipidemia, unspecified
CPT/HCPCS: 36415; 80053; 80061; 83036

== ENCOUNTER → 2023-02-24 02:05 | Outpatient (CLI) | payer MEDICARE, SELFPAY ==
--- NOTE | 2023-02-24 07:00 | DI.MAMMO_ITS ---
Exam(s) MAMMO SCREENING EXAM: MAMMO SCREENING CLINICAL HISTORY: screening,z12.39 TECHNIQUE: Bilateral full field digital CC and MLO mammographic images were obtained with 3D tomosyn thesis and utilizing computer aided detection (CAD). COMPARISON: Available for comparison. FINDINGS: Masses/Architectural Distortion: None seen. Microcalcifications: No suspicious pleomorphic-type are seen. Skin Thickening/Nipple Retraction: None. IMPRESSION: 1. No significant interval change with no specific features of malignancy noted. 2. Unless there is more urgent need, screening mammography is recommended, as per [employer] guidelines. BI-RADS Category 1 - Negative Breast Density - Category B - Scattered areas of fibroglandular density Breast density category C or D implies that the patient has dense breast tissue. Dense breast tissue is very common and is not abnormal but dense breast tissue can make it harder to find cancer on a ma mmogram. Also, dense breast tissue may increase their breast cancer risk. This information about the result of the mammogram report was provided to the patient to raise their awareness. Use this report when you speak with the patient about their risks for breast cancer, which includes their family hist ory. At that time, you may recommend for more screening tests (Ultrasound or MRI) as they might be us eful based on their risk. A negative radiographic report should not delay biopsy if a dominant or clinically suspicious mass is present. Up to ten percent of cancers are not identified on mammography. A negative report may reinforce clinical impression. Adenosis and dense breasts may obscure an underlying neoplasm. False positive reports average 6 to 10%. Patient will receive a letter notifying them of these results.
== END ==
PROVIDERS: PCP Family Medicine; Visit Provider Family Medicine
DX: Z12.31 Encounter for screening mammogram for malignant neoplasm of breast (principal)
CPT/HCPCS: 77063; 77067

== ENCOUNTER 2023-05-15 10:34 | Emergency (ER) | payer MEDICARE, SELFPAY ==
[2023-05-15] VITALS (60 sets, daily range): BP systolic 82–152; BP diastolic 27–71; PULSE 65–100; RESP 14–18; TEMP 37.9; O2SAT 89–99
[2023-05-15 11:36] LABS: Abs Immature Grans 0.19 10^3/uL (0.0-0.06); HCT 38.3 % (36.0-46.0); HGB 12.6 g/dL (11.2-15.7); Lactate 1.3 mmol/L (0.6-1.4); MCH 29.6 pg (27.0-33.0); MCHC 32.9 % (32.0-36.0); MCV 90 fL (80-95); MPV 11.3 fL (8.0-11.0); Platelet Count 202 10^3/uL (130-400); RBC 4.25 10^6/uL (3.93-5.22); RDW 12.1 % (11.7-14.6); RDW-SD 39.7 fL; WBC 16.47 10^3/uL (4.4-10.8)
[2023-05-15 11:53] LABS: ALT 26 U/L (14-59); AST 17 U/L (15-37); Albumin 3.6 g/dL (3.4-5.0); Alkaline Phosphatase 64 U/L (46-116); BUN 19 mg/dL (7-18); CREATININE 1.3 mg/dL (0.55-1.02); Calcium 9.8 mg/dL (8.5-10.1); Chloride 96 mmol/L (98-107); Estimated GFR 42.88 (mL/min/1.73m2); Glucose 150 mg/dL (74-106); Potassium 3.9 mmol/L (3.5-5.1); Sodium 130 mmol/L (136-145); Total Protein 7.7 g/dL (6.4-8.2)
[2023-05-15 11:54] LABS: Absolute Lymphocyte Count 0.99 10^3/uL (1.2-3.4); Absolute Neutrophil Count 14.16 10^3/uL (1.2-6.7)
[2023-05-15 11:55] LABS: Absolute Monocyte Count 1.32 10^3/uL (0.1-0.8); Diff Comment Manual Differential; RBC Morphology Normal
[2023-05-15] MEDS: Normal Saline 1,000 ML 1000 ML IV (12:15)
[2023-05-15] MEDS: ACETAMINOPHEN 1,000 MG/100 ML BTL 400 MG IVPB (12:25)
--- NOTE | 2023-05-15 12:30 | DI.CT_ITS ---
Exam(s) CT ABDOMEN PELVIS W EXAM: CT ABDOMEN PELVIS W CLINICAL HISTORY: nausea fever TECHNIQUE: Imaging Protocol: Axial computed tomography images with coronal and sagittal reformatted images were created and reviewed CONTRAST MATERIAL: Intravenous: Omnipaque 350 Contrast volume:100 mL Oral: No COMPARISON: CT CT ABDOMEN PELVIS W from 08/14/2018 FINDINGS: ABDOMEN: Lung Bases: There is a small left pleural effusion. There is a tiny hiatal hernia. Mild dependent a telectasis is seen in the lung bases. Liver: Normal density. There is a stable cyst in the right lobe of the liver. Portal, Superior Mesenteric, and Splenic Veins: Unremarkable. Gallbladder and Biliary Tract: No radiodense calculus or dilation. Pancreas: Normal density, no abnormal calcifications or inflammatory process. Spleen: Normal. Adrenals: No masses seen. Kidneys: Normal size, contour and axis. No radiodense stones or obstructive uropathy. Stable right re nal cysts. No follow-up is recommended. There is mild bilateral perinephric stranding. Abdominal Aorta: Abdominal portion non-dilated. Atherosclerosis. Bowel: There is diverticulosis of the colon without evidence of acute diverticulitis. There is fluid seen within the ascending colon and mild mucosal enhancement. This can be seen with a diarrheal ill ness. There is no evidence of bowel obstruction or bowel wall thickening. No evidence of appendicit is. Peritoneal Cavity: No ascites, collection or mesenteric inflammatory response. No free air. Lymph Nodes: Within normal limits. Bones: Within normal limits for the patient's age. Soft Tissues: Unremarkable. PELVIS: Bladder: Symmetric distention, no gross wall thickening. Reproductive Organs: Unremarkable as visualized. Lymph Nodes: Within normal limits. Bones: Within normal limits for the patient's age. IMPRESSION: 1. Findings in the ascending colon which may represent colitis. Please correlate clinically. 2. Colonic diverticulosis without evidence of acute diverticulitis. 3. Mild bilateral perinephric stranding which is nonspecific. Pyelonephritis should be considered. Please correlate clinically. RADIATION DOSE DELIVERED: Total DLP DATA REPOSITORY: All CT scans at this facility are submitted to the National Radiology Data Registry (NRDR) Dose Index Registry (DIR) with the [employer] ([employer]). RADIATION OPTIMIZATION: All CT scans at this facility use at least one of these dose optimization te chniques: automated exposure control; mA and/or kV adjustment per patient size (includes targeted exa ms where dose is matched to clinical indication); or iterative reconstruction.
[2023-05-15 12:34] LABS: Bilirubin Small (Negative); Blood Moderate (Negative); Clarity Sl Cloudy (Clear); Glucose Negative (Negative); Ketones Negative (Negative); Leukocyte Esterase Negative (Negative); Nitrite Negative (Negative); Specific Gravity >= 1.030 (1.005-1.025); Urobilinogen 0.2 mg/dL (Up to 0.2); pH 5.5 (5-8)
[2023-05-15] MEDS: Ondansetron 4 MG/2 ML VIAL IVP (12:39)
[2023-05-15 12:44] LABS: Bacteria Moderate HPF (Negative); Crystals Negative HPF (Negative); Epithelial Cells Few HPF (Negative); Mucus Heavy (Negative); WBC 0-2 HPF (0-5)
[2023-05-15 12:45] LABS: C & S Indicated? Yes; Casts 0-2 Coarse Granular LPF (Negative)
[2023-05-15 13:11] LABS: Procalcitonin 0.1 ng/mL
[2023-05-15 13:38] LABS: COVID-19 PCR Negative (Negative); Influenza A PCR Negative (Negative); Influenza B PCR Negative (Negative); RSV PCR Negative (Negative)
[2023-05-15 13:47] LABS: Source Nasopharynx
[2023-05-15] MEDS: Omnipaque 350 MG/ML 100 ML BTL IJ (13:58)
[2023-05-15] MEDS: Normal Saline - Diluent 50 ML VIAL IJ (14:00)
[2023-05-15] MEDS: Ketorolac 15 MG/ML VIAL IVP (14:10)
[2023-05-15] MEDS: Prochlorperazine 10 MG/2 ML VIAL 5 MG IVP (14:55)
--- NOTE | 2023-05-15 15:05 | ED.GENADUL_ITS ---
Discharge Plan Disposition Patient Disposition: Home Condition: Improving Discharge Details Clinical Impression: Acute pyelonephritis, Fever Primary Care Provider: Dorothy Gibbs ED Provider: Saad Crook Home Meds and New Rx's Prescriptions: New cefpodoxime 200 mg tablet 200 mg PO BID Qty: 20 0RF Rx Instructions: must administer with a meal/food Continued metoprolol succinate 50 mg tablet extended release 24 hr 75 mg PO DAILY Qty: 135 5RF clonazepam 0.5 mg tablet 0.5 mg PO QHS Qty: 30 0RF Rx Instructions: administer 30 minutes before bedtime losartan 100 mg tablet 100 mg PO DAILY Qty: 90 12RF albuterol sulfate [Ventolin HFA] 90 mcg/actuation HFA aerosol inhaler 2 puff inhalation Q6H PRN (Reason: shortness of breath or wheezing) Qty: 25.5 4RF Shingrix (PF) 50 mcg/0.5 mL suspension for reconstitution 0.5 ml IM ONCE Qty: 1 1RF Rx Instructions: as a single dose. Repeat in 2 months famotidine 40 mg tablet 40 mg PO DAILY Qty: 90 4RF atorvastatin 40 mg tablet 40 mg PO QPM Qty: 90 4RF Discharge Instructions Instructions: Urinary Tract Infection in Women (ED), Fever in Adults (ED) Additional Instructions: At this time your CT imaging shows a possible kidney infection. We have started you on antibiotics and please take these as prescribed. If you have any new or significant worsening of symptoms, are unable to tolerate your antibiotics at home due to nausea and vomiting, or you have further concerns please return immediately to the emergency department for reassessment. Otherwise it is important that you follow-up with your primary care provider early next week for a recheck of your symptoms. Referrals: Dorothy Gibbs MD, [place] [Primary Care Provider] - 3 days Discharge Data Discharge Date/Time-TO BE ENTERED AT DEPARTURE: 05/15/23 17:13 Medical Decision Making Patient presenting the emergency department for chief complaint of fever, confusion, and not feeling well. Patient states that since she has been urinating more and starting to feel more more ill as each day has gone on. She states starting yesterday and today she has been running a fever and having some nausea with some headache. Denies any nasal congestion cough sore throat or respiratory symptoms. Denies any contact with anyone who has been ill, has general confusion but is alert and oriented x3 with no focal neuro complaint. Physical exam is unremarkable, no CVA tenderness, no abdominal tenderness, clear lung sounds, normal HEENT exam no signs of meningitis and again no focal findings. We will plan on checking labs including lactate, procalcitonin, urinalysis urine culture and blood cultures. Pending results will give IV acetaminophen and fluids and Zofran. Review of labs show elevated white count of 16 with elevated neutrophils monocytes and low lymphocytes, slightly low sodium at 130, chloride of 96, BUN slightly elevated at 19 with a creatinine of 1.3 and GFR 42, glucose of 150 otherwise normal CMP. Lactate within normal range of 1.3 and procalcitonin of 0.1. Urinalysis does show high specific gravity urine blood bilirubin negative for leukocyte esterase and nitrite along with no noted white count. Reflexive culture was ordered though in course of fever and also patient having 10-20 RBCs. Patient is negative for COVID flu and RSV. We did proceed with CT imaging given patient continued to have complaints of worsening nausea so she was given Compazine ketorolac for headache and more fluids. Review of CT imaging shows some findings to suggest pyelonephritis with bilateral perinephritic stranding and also some nonspecific findings that could be considered colitis. No other acute emergent findings are noted. Patient reassessed and does state improvement of overall symptoms but still having some slight general confusion. Given patient having fever, nausea, findings to suggest pyelonephritis along with frequent urination I do feel this is more than likely the cause of her symptoms in spite of a negative urinalysis. Patient does have past medical history of hypertension,, GERD, anxiety, diabetes. Patient has listed on her allergies as a local reaction from penicillin as a child. No systemic reaction was noted per patient. Discussed with patient and daughter risk of cephalosporins. After discussion of risk versus benefit both patient and daughter were agreeable to receiving a dose of ceftriaxone here in the emergency department under monitoring and if no reaction patient will be placed on cefpodoxime. Patient sent home with to go bottle of Zofran. After discussion of diagnosis and plan of care patient and daughter has no further needs, questions, or concerns and states clear understanding to return to the emergency department for any worsening symptoms. This documentation was generated using [employer] system, please disregard any oddities of phrase or misspellings. Imaging Data Radiologic Study: Imaging: CT Scan Radiologist's impression: Exam(s) PROCEDURE INFORMATION: Exam: CT Abdomen And Pelvis With Contrast Exam date and time: 05/15/2023 1:51 PM Age: 77 years old Clinical indication: Abdominal pain TECHNIQUE: Imaging protocol: Computed tomography of the abdomen and pelvis with contrast. COMPARISON: CT ABDOMEN PELVIS W 08/14/2018 2:48 AM FINDINGS: Lungs: The visualized lung bases are clear. 7 mm hypodense lesion in the posterior segment of the right hepatic lobe is likely a small cyst. Liver: See Lungs finding. Gallbladder and bile ducts: Normal. No calcified stones. No ductal dilation. Pancreas: Normal. No ductal dilation. Spleen: Normal. No splenomegaly. Adrenal glands: Normal. No mass. Kidneys and ureters: 7 mm hypodense lesion in the upper pole of the right kidney. 7 mm hypodense lesion anteriorly in the midpole of the right kidney. These are too small to characterize adequately but statistically are likely cysts. Mild bilateral perinephric stranding is new since the prior study. Stomach and bowel: There is fluid within the ascending colon with mucosal enhancement. No bowel wall thickening. Diverticula in the sigmoid colon. The small and large bowel are caliber. Appendix: No evidence of appendicitis. Intraperitoneal space: Unremarkable. No free air. No significant fluid collection. Vasculature: Scattered atherosclerotic calcifications of the abdominal aorta. No aneurysmal dilatation. Lymph nodes: Unremarkable. No enlarged lymph nodes. Urinary bladder: Unremarkable as visualized. Reproductive: Unremarkable as visualized. Bones/joints: Degenerative changes of the lumbar spine. No acute bone findings. Soft tissues: Unremarkable. IMPRESSION: 1. The findings in the ascending colon are nonspecific. Colitis should be considered 2. Mild bilateral perinephric stranding is also nonspecific. Pyelonephritis can be considered in the proper clinical setting. 3. Diverticulosis. 4. Probable subcentimeter right renal cysts. Lab Data Lab results reviewed: Yes I reviewed the patient's lab results. HPI General Mode of arrival: ambulatory . Date/Time Provider Initiated Documentation: 05/15/23 11:02 . Limitations to Documentation: no limitations . Information obtained by: patient and RN notes reviewed . History of Present Illness 77 year old F presents to the emergency department with the chief complaint of Nausea, confusion, fever, described as moderate, and is localized to the head. Patient started experiencing this day(s) (2) and it has been constant. No relieving factors improve symptom(s), No exacerbating factors reported . Patient did receive the following treatments prior to arrival, none Related Data Home Medications Medication Instructions Recorded Confirmed metoprolol succinate 50 mg 75 mg (1.5 x 50 mg) PO DAILY #135 06/01/22 05/15/23 tablet,extended release 24 hr tabs atorvastatin 40 mg tablet 40 mg PO QPM #90 tabs 09/18/22 05/15/23 albuterol sulfate 90 mcg/actuation 2 puff inhalation Q6H PRN 11/05/22 05/15/23 aerosol inhaler (Ventolin HFA) shortness of breath or wheezing #25.5 grams clonazepam 0.5 mg tablet 0.5 mg PO QHS #30 tabs 11/05/22 05/15/23 losartan 100 mg tablet 100 mg PO DAILY #90 tab-caps 11/05/22 05/15/23 varicella-zoster glycoE [id number] 0.5 ml IM ONCE #1 ea 11/05/22 05/15/23 adj(PF) 50 mcg/0.5 mL IM susp, kit (Shingrix (PF)) famotidine 40 mg tablet 40 mg PO DAILY #90 tabs 02/11/23 05/15/23 cefpodoxime 200 mg tablet 200 mg PO BID #20 tabs 05/15/23 Previous Rx's Medication Instructions Recorded metoprolol succinate 50 mg 75 mg (1.5 x 50 mg) PO DAILY #135 06/01/22 tablet,extended release 24 hr tabs atorvastatin 40 mg tablet 40 mg PO QPM #90 tabs 09/18/22 albuterol sulfate 90 mcg/actuation 2 puff inhalation Q6H PRN 11/05/22 aerosol inhaler (Ventolin HFA) shortness of breath or wheezing #25.5 grams clonazepam 0.5 mg tablet 0.5 mg PO QHS #30 tabs 11/05/22 losartan 100 mg tablet 100 mg PO DAILY #90 tab-caps 11/05/22 varicella-zoster glycoE [id number] 0.5 ml IM ONCE #1 ea 11/05/22 adj(PF) 50 mcg/0.5 mL IM susp, kit (Shingrix (PF)) famotidine 40 mg tablet 40 mg PO DAILY #90 tabs 02/11/23 cefpodoxime 200 mg tablet 200 mg PO BID #20 tabs 05/15/23 Allergies Allergy/AdvReac Type Severity Reaction Status Date / Time bupropion Allergy Severe Anaphylaxis Unverified 05/15/23 13:04 Penicillins Allergy Mild Large Unverified 05/15/23 13:04 local reaction from IM injection codeine AdvReac Mild Constipatio Unverified 05/15/23 13:04 n lisinopril AdvReac Mild Cough Unverified 05/15/23 13:04 erythromycin base AdvReac Unverified 05/15/23 13:04 hydrochlorothiazide AdvReac Vertigo; Verified 05/15/23 13:04 Dry eyes General Stated Complaint: GenMedical BORIS: 3 Review of Systems Constitutional Constitutional: Reports chills, Reports fatigue, Reports fever(s), Reports headache(s), Reports lethargy, Reports malaise and Reports poor appetite Eyes Eyes: Denies change in vision ENT Ears, Nose, Mouth, and Throat: Reports headache(s), Denies nasal congestion and Denies sore throat Cardiovascular Cardiovascular: Denies chest pain, Denies rapid heart rate and Denies dyspnea Respiratory Respiratory: Denies cough and Denies dyspnea Gastrointestinal Gastrointestinal: Denies abdominal pain, Reports nausea and Denies vomiting Genitourinary Genitourinary: Denies urinary incontinence and Reports urinary urgency Musculoskeletal Musculoskeletal: Reports myalgias Integumentary/Breasts Skin/Breast: Denies rash Neurologic Neurologic: Reports headache(s) Endocrine Endocrine: Reports fatigue PFSH All Active Problems (Updated 05/15/23 @ 16:14 by Dhruv Azevedo NP) Fever (Acute) Acute pyelonephritis (Acute) Splinter of finger (Acute) Tachycardia (Acute) 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) Optic nerve swelling (Acute) Decreased hearing of both ears (Acute) Change in mole (Acute) Atrophy of vagina (Acute) Lumbar arthropathy (Acute) Insomnia (Acute) Acute bilateral low back pain (Acute) Foot pain (Acute) Shoulder pain, right (Acute) Abnormal renal function (Chronic 09/14/13) Anxiety (Chronic) Depressive disorder (Chronic) Essential hypertension (Chronic) GERD (gastroesophageal reflux disease) (Chronic 04/17/14) Hiatal hernia (Chronic) Hyperlipidemia (Chronic 02/14/13) Osteopenia (Chronic) T-scores of -1.3 Medical History Bruit Carpal tunnel syndrome of right wrist (11/15/13) Corneal abrasion (05/20/00) Papanicolaou smear of vagina with atypical squamous cells of undetermined significance (ASC-US) (05/20/03) Polyp of corpus uteri Diabetes mellitus Right carotid bruit Corneal abrasion, left 05/20/00 Pap smear vag w ASC-US 05/20/03 neg. high risk HPV Abdominal pain Acquired trigger finger multiple fingers affected Cataract (02/15/14) Asthma GERD (gastroesophageal reflux disease) HTN (hypertension) Hypercholesterolemia Surgical History History of eye surgery Status post carpal tunnel release S/P carpal tunnel release H/O eye surgery 06/21/00 left S/P tubal ligation Open Carpal Tunnel release 01/23/14; RIGHT EYE SURGERY 2000-LEFT Family History Mother , SPINAL STENOSIS at age 80. PMR (polymyalgia rheumatica) Father Diabetes Essential hypertension Depression Heart disease Hyperlipidemia Stroke Brother Essential hypertension Hyperlipidemia Brother Diabetes Essential hypertension Heart disease stents Hyperlipidemia Stroke Brother Essential hypertension Heart disease Bypass Hyperlipidemia Grandfather Neoplasm BLADDER Asthma Grandfather Stroke Grandmother Diabetes Heart disease Neoplasm LEUKEMIA Daughter Asthma Daughter Asthma Social History Smoking/Tobacco Use Status: Never Second Hand Exposure: Yes Smoking risk assessment performed?: Yes Alcohol Intake: current Alcohol Intake frequency: holidays/special occasions only Alcohol type: wine Drug use: Never Substance use type: does not use Caregiver/Support person: No Household members: none Housing: house Communication Needs: Hard of Hearing and Corrective Lenses Do you need help understanding health information?: Never Pets and animals: Yes Pets and animals: cat(s) Sexually active: No Do you think of yourself as: straight/heterosexual Current gender identity: female What is your relationship status?: How often do you talk on the phone with friends or family?: three or more times per week How often do you get together with friends or relatives?: three or more times per week How often do you attend synagogue or orthodox services?: decline to answer Do you belong to any clubs or organized social groups?: no Panel score (0-1 are the most socially isolated patients): 1 [place]/Oriental Orthodox: Yazidism Seatbelt use: always Do you feel safe in your relationship?: Yes Exam Const General: cooperative, comfortable and no acute distress Orientation: alert and awake [facility] Head: normal to inspection, normocephalic and atraumatic Ears: hearing grossly normal bilaterally and TM's normal bilaterally General nose exam: external nose normal Face and sinus: no erythema Mouth: oral mucosae normal, no drooling, no muffled voice and no trismus Throat: posterior oropharynx normal Neck Neck: normal visual inspection, full ROM, no meningeal signs, trachea midline and supple Resp Effort & Inspection: normal respiratory effort and able to speak in complete sentences Auscultation: clear to auscultation bilaterally Cardio Rate: regular rate Rhythm: regular rhythm Heart Sounds: S1 normal, S2 normal, normal S1 and S2, no click, no gallops, no murmurs and no rubs GI Palpation: soft, not firm, no guarding, no hepatosplenomegaly, not rigid and nontender Auscultation: normal bowel sounds General: No CVA tenderness Back/Spine/Pelvis Back: no CVA tenderness Skin General skin exam: no rashes or lesions noted and dry skin (warm) Neuro General: patient alert, patient awake, patient oriented x3, gait normal and moves all extremities Cognition: normal cognition Speech: speech normal Course Vital Signs Vital signs: Vital Signs Temperature 37.9 C H 05/15/23 10:43 Pulse 100 H 05/15/23 10:43 Respiratory Rate 18 05/15/23 10:43 Blood Pressure 150/68 H 05/15/23 10:43 Pulse Oximetry 97 05/15/23 10:43 Temperature 37.9 C H 05/15/23 10:57 Temperature Source Oral 05/15/23 10:43 Pulse 97 H 05/15/23 10:57 Respiratory Rate 14 05/15/23 10:57 Respiratory Effort Normal 05/15/23 10:57 Respiratory Depth Normal 05/15/23 10:57 Respiratory Pattern Normal 05/15/23 10:57 Blood Pressure 152/61 H 05/15/23 10:57 Blood Pressure Position Supine 05/15/23 10:57 Pulse Oximetry 95 05/15/23 10:57 Oxygen Delivery Method Room Air 05/15/23 10:57 Oxygen Flow Rate 0 05/15/23 10:43 Pain Level 0 05/15/23 10:43 Lab/Test Results Lab/Test Results: 05/15/23 11:39 Urine - Reflex from Ua Urine Culture - Pending 05/15/23 12:05 Blood Blood Culture - Pending 05/15/23 11:40 Blood Blood Culture - Pending Laboratory Tests Range/Units 05/15/23 05/15/23 05/15/23 11:20 11:39 11:40 WBC (4.4-10.8) 10^3/uL 16.47 H RBC (3.93-5.22) 10^6/uL 4.25 Hgb (11.2-15.7) g/dL 12.6 Hct (36.0-46.0) % 38.3 MCV (80-95) fL 90 MCH (27.0-33.0) pg 29.6 MCHC (32.0-36.0) % 32.9 RDW (11.7-14.6) % 12.1 Plt Count (130-400) 10^3/uL 202 MPV (8.0-11.0) fL 11.3 H Immature Gran % See Differential Neutrophils % 86.0 Lymphocytes % 6.0 Monocytes % 8.0 Eosinophils % 0.0 Basophils % 0.0 Nucleated RBC % (0.0-0.3) % 0.0 Absolute Neutrophils (1.2-6.7) 10^3/uL 14.16 H Absolute Lymphocytes (1.2-3.4) 10^3/uL 0.99 L Absolute Monocytes (0.1-0.8) 10^3/uL 1.32 H Absolute Eosinophils (0.0-0.7) 10^3/uL 0.00 Absolute Basophils (0.0-0.2) 10^3/uL 0.00 RBC Morphology Normal VBG Lactate (0.6-1.4) mmol/L 1.3 Sodium (136-145) mmol/L 130 L Potassium (3.5-5.1) mmol/L 3.9 Chloride (98-107) mmol/L 96 L Carbon Dioxide (21.0-32.0) mmol/L 27.0 Anion Gap (3-11) mmol/L 7.0 BUN (7-18) mg/dL 19 H Creatinine (0.55-1.02) mg/dL 1.3 H Est GFR (CKD-EPI 2020) (mL/min/1.73m2) 42.88 Glucose (74-106) mg/dL 150 H Calcium (8.5-10.1) mg/dL 9.8 Magnesium (1.8-2.4) mg/dL 2.0 Total Bilirubin (0.2-1.0) mg/dL 1.0 AST (15-37) U/L 17 ALT (14-59) U/L 26 Alkaline Phosphatase (46-116) U/L 64 Total Protein (6.4-8.2) g/dL 7.7 Albumin (3.4-5.0) g/dL 3.6 Procalcitonin ng/mL 0.1 Urine Color (Yellow) Yellow Urine Clarity (Clear) Sl Cloudy Urine pH (5-8) 5.5 Ur Specific [place] (1.005-1.025) >= 1.030 H Urine Protein (Negative) mg/dL >=300 H Urine Ketones (Negative) mg/dL Negative Urine Blood (Negative) Moderate H Urine Nitrite (Negative) Negative Urine Bilirubin (Negative) Small H Urine Urobilinogen (Up to 0.2) mg/dL 0.2 Ur Leukocyte Esterase (Negative) Negative Urine RBC (0-2) HPF 10-20 H Urine WBC (0-5) HPF 0-2 Ur Epithelial Cells (Negative) HPF Few Urine Crystals (Negative) HPF Negative Urine Bacteria (Negative) HPF Moderate Urine Casts (Negative) LPF 0-2 Coarse Granular Urine Mucus (Negative) Heavy Ur Culture Indicated? Yes Urine Glucose (Negative) mg/dL Negative COVID-19 Source SARS-CoV-2 (PCR) (Negative) Influenza Type A (PCR) (Negative) Influenza Type B (PCR) (Negative) RSV (PCR) (Negative) Range/Units 05/15/23 12:53 WBC (4.4-10.8) 10^3/uL RBC (3.93-5.22) 10^6/uL Hgb (11.2-15.7) g/dL Hct (36.0-46.0) % MCV (80-95) fL MCH (27.0-33.0) pg MCHC (32.0-36.0) % RDW (11.7-14.6) % Plt Count (130-400) 10^3/uL MPV (8.0-11.0) fL Immature Gran % Neutrophils % Lymphocytes % Monocytes % Eosinophils % Basophils % Nucleated RBC % (0.0-0.3) % Absolute Neutrophils (1.2-6.7) 10^3/uL Absolute Lymphocytes (1.2-3.4) 10^3/uL Absolute Monocytes (0.1-0.8) 10^3/uL Absolute Eosinophils (0.0-0.7) 10^3/uL Absolute Basophils (0.0-0.2) 10^3/uL RBC Morphology VBG Lactate (0.6-1.4) mmol/L Sodium (136-145) mmol/L Potassium (3.5-5.1) mmol/L Chloride (98-107) mmol/L Carbon Dioxide (21.0-32.0) mmol/L Anion Gap (3-11) mmol/L BUN (7-18) mg/dL Creatinine (0.55-1.02) mg/dL Est GFR (CKD-EPI 2020) (mL/min/1.73m2) Glucose (74-106) mg/dL Calcium (8.5-10.1) mg/dL Magnesium (1.8-2.4) mg/dL Total Bilirubin (0.2-1.0) mg/dL AST (15-37) U/L ALT (14-59) U/L Alkaline Phosphatase (46-116) U/L Total Protein (6.4-8.2) g/dL Albumin (3.4-5.0) g/dL Procalcitonin ng/mL Urine Color (Yellow) Urine Clarity (Clear) Urine pH (5-8) Ur Specific [place] (1.005-1.025) Urine Protein (Negative) mg/dL Urine Ketones (Negative) mg/dL Urine Blood (Negative) Urine Nitrite (Negative) Urine Bilirubin (Negative) Urine Urobilinogen (Up to 0.2) mg/dL Ur Leukocyte Esterase (Negative) Urine RBC (0-2) HPF Urine WBC (0-5) HPF Ur Epithelial Cells (Negative) HPF Urine Crystals (Negative) HPF Urine Bacteria (Negative) HPF Urine Casts (Negative) LPF Urine Mucus (Negative) Ur Culture Indicated? Urine Glucose (Negative) mg/dL COVID-19 Source Nasopharynx SARS-CoV-2 (PCR) (Negative) Negative Influenza Type A (PCR) (Negative) Negative Influenza Type B (PCR) (Negative) Negative RSV (PCR) (Negative) Negative
--- NOTE | 2023-05-15 15:50 | DI.VRAD_ITS ---
PROCEDURE INFORMATION: Exam: CT Abdomen And Pelvis With Contrast Exam date and time: 05/15/2023 1:51 PM Age: 77 years old Clinical indication: Abdominal pain TECHNIQUE: Imaging protocol: Computed tomography of the abdomen and pelvis with contrast. COMPARISON: CT ABDOMEN PELVIS W 08/14/2018 2:48 AM FINDINGS: Lungs: The visualized lung bases are clear. 7 mm hypodense lesion in the posterior segment of the right hepatic lobe is likely a small cyst. Liver: See Lungs finding. Gallbladder and bile ducts: Normal. No calcified stones. No ductal dilation. Pancreas: Normal. No ductal dilation. Spleen: Normal. No splenomegaly. Adrenal glands: Normal. No mass. Kidneys and ureters: 7 mm hypodense lesion in the upper pole of the right kidney. 7 mm hypodense lesion anteriorly in the midpole of the right kidney. These are too small to characterize adequately but statistically are likely cysts. Mild bilateral perinephric stranding is new since the prior study. Stomach and bowel: There is fluid within the ascending colon with mucosal enhancement. No bowel wall thickening. Diverticula in the sigmoid colon. The small and large bowel are caliber. Appendix: No evidence of appendicitis. Intraperitoneal space: Unremarkable. No free air. No significant fluid collection. Vasculature: Scattered atherosclerotic calcifications of the abdominal aorta. No aneurysmal dilatation. Lymph nodes: Unremarkable. No enlarged lymph nodes. Urinary bladder: Unremarkable as visualized. Reproductive: Unremarkable as visualized. Bones/joints: Degenerative changes of the lumbar spine. No acute bone findings. Soft tissues: Unremarkable. IMPRESSION: 1. The findings in the ascending colon are nonspecific. Colitis should be considered 2. Mild bilateral perinephric stranding is also nonspecific. Pyelonephritis can be considered in the proper clinical setting. 3. Diverticulosis. 4. Probable subcentimeter right renal cysts. Dictated and Authenticated by: Gagan Barnhart MD. Ordering:ALEXIS Bartlett MD
[2023-05-15] MEDS: cefTRIAXone 1 GM/50 ML BAG IVPB (16:39)
--- NOTE | 2023-05-15 17:21 | ED.PROG_ITS ---
Date of service: 05/15/23 Time of Service: 17:22 Medical Decision Making 77-year-old female signed out to me receiving IV antibiotics for pyelonephritis, had a history of reaction to penicillin and they were directed to remain in the ED and be observed while IV ceftriaxone went in for past reaction. There IV a ntibiotics completed and there was no alteration of vitals or evidence of any reaction starting the patient was discharged home with prior provider Dhruv Azevedo's plan in place of outpatient cefpodoxime. Medical Records Medical records reviewed: Yes I reviewed the patient's medical records. Discharge Plan Disposition Patient Disposition: Home Condition: Improving Discharge Details Clinical Impression: Acute pyelonephritis, Fever Primary Care Provider: Dorothy Gibbs ED Provider: Dhruv Azevedo Home Meds and New Rx's Prescriptions: New cefpodoxime 200 mg tablet 200 mg PO BID Qty: 20 0RF Rx Instructions: must administer with a meal/food Continued metoprolol succinate 50 mg tablet extended release 24 hr 75 mg PO DAILY Qty: 135 5RF clonazepam 0.5 mg tablet 0.5 mg PO QHS Qty: 30 0RF Rx Instructions: administer 30 minutes before bedtime losartan 100 mg tablet 100 mg PO DAILY Qty: 90 12RF albuterol sulfate [Ventolin HFA] 90 mcg/actuation HFA aerosol inhaler 2 puff inhalation Q6H PRN (Reason: shortness of breath or wheezing) Qty: 25.5 4RF Shingrix (PF) 50 mcg/0.5 mL suspension for reconstitution 0.5 ml IM ONCE Qty: 1 1RF Rx Instructions: as a single dose. Repeat in 2 months famotidine 40 mg tablet 40 mg PO DAILY Qty: 90 4RF atorvastatin 40 mg tablet 40 mg PO QPM Qty: 90 4RF Discharge Instructions Instructions: Urinary Tract Infection in Women (ED), Fever in Adults (ED) Additional Instructions: At this time your CT imaging shows a possible kidney infection. We have started you on antibiotics and please take these as prescribed. If you have any new or significant worsening of symptoms, are unable to tolerate your antibiotics at home due to nausea and vomiting, or you have further concerns please return immediately to the emergency department for reassessment. Otherwise it is important that you follow-up with your primary care provider early next week for a recheck of your symptoms. Referrals: Dorothy Gibbs MD, [place] [Primary Care Provider] - 3 days
[2023-05-15] MEDS: Ondansetron O.D.T. 4 MG TABEF, 3 TABS/BTL PO (17:33)
--- NOTE | 2023-05-17 07:52 | NUR.NOTE ---
Accessed Pt chart to document antibiotics given upon discharge. Pts culture was positive.
== END 2023-05-15 17:13 | disposition home or self-care (01) ==
PROVIDERS: Nurse Practitioner Family; Emergency Provider Physician Assistant; PCP Family Medicine
DX: R50.9 Fever, unspecified (principal); N10 Acute pyelonephritis; J90 Pleural effusion, not elsewhere classified; K57.30 Diverticulosis of large intestine without perforation or abscess without bleeding; E11.9 Type 2 diabetes mellitus without complications; I10 Essential (primary) hypertension; E78.5 Hyperlipidemia, unspecified; Z20.822 Contact with and (suspected) exposure to COVID-19
CPT/HCPCS: 00123; 36410; 80053; 84145; 87040; 87637; 96361; 96365; 96375; 99285; 74177; 81003; 81015; 83605; 83735; 85025; 87086; 99284; J0131; J0696; J0780; J1885; J2405; J3490

== ENCOUNTER 2023-05-17 16:47 | Inpatient (IN) | payer MEDICARE, SELFPAY ==
[2023-05-17] VITALS (31 sets, daily range): BP systolic 106–146; BP diastolic 40–67; PULSE 73–121; RESP 5–24; TEMP 36.2–40.1; O2SAT 88–94
--- NOTE | 2023-05-17 16:45 | DI.CT_ITS ---
Exam(s) CT HEAD WO EXAM: CT HEAD WO CLINICAL HISTORY: altered mental status, confusion. TECHNIQUE: Imaging Protocol: Axial computed tomography images with coronal and sagittal reformatted images were created and reviewed COMPARISON: No exams were available for comparison FINDINGS: There are no skull fractures. There is no fluid in the visualized paranasal sinuses. There is no evidence of intracranial hemorrhage, mass effect, or shift of midline structures. There are no extra-axial fluid collections. The ventricles are not enlarged or shifted and there is no blo od within the ventricular system nor within the basal cisterns. IMPRESSION: No acute intracranial findings on this noninfused CT scan of the brain. Called by myself to ER. RADIATION DOSE DELIVERED: Total DLP DATA REPOSITORY: All CT scans at this facility are submitted to the National Radiology Data Registry (NRDR) Dose Index Registry (DIR) with the [employer] ([employer]). RADIATION OPTIMIZATION: All CT scans at this facility use at least one of these dose optimization te chniques: automated exposure control; mA and/or kV adjustment per patient size (includes targeted exa ms where dose is matched to clinical indication); or iterative reconstruction.
[2023-05-17 17:26] LABS: Lactate 2.3 mmol/L (0.6-1.4)
[2023-05-17 17:28] LABS: Abs Immature Grans 0.16 10^3/uL (0.0-0.06); Absolute Eosinophil Count 0.09 10^3/uL (0.0-0.7); Absolute Lymphocyte Count 0.61 10^3/uL (1.2-3.4); Basophils % 0.4; Eosinophils % 0.7; HCT 34.9 % (36.0-46.0); HGB 11.5 g/dL (11.2-15.7); Immature Grans % 1.2; Lymphocytes % 4.5; MCH 29.7 pg (27.0-33.0); MCV 90 fL (80-95); MPV 11.5 fL (8.0-11.0); Monocytes % 5.5; Neutrophils % 87.7; Platelet Count 212 10^3/uL (130-400); RBC 3.87 10^6/uL (3.93-5.22); RDW 12.7 % (11.7-14.6); RDW-SD 42.4 fL; WBC 13.56 10^3/uL (4.4-10.8)
[2023-05-17 17:30] LABS: Absolute Basophil Count 0.05 10^3/uL (0.0-0.2); Absolute Monocyte Count 0.75 10^3/uL (0.1-0.8); Absolute Neutrophil Count 11.89 10^3/uL (1.2-6.7)
[2023-05-17] MEDS: Acetaminophen 500 MG TAB 1000 MG PO (17:31)
[2023-05-17] MEDS: Normal Saline 1,000 ML 1000 ML IV ×2 (17:31→18:43)
--- NOTE | 2023-05-17 17:33 | ED.GENADUL_ITS ---
Discharge Plan Disposition Patient Disposition: Admit to [facility] Condition: Serious Discharge Details Clinical Impression: Acute hypoxemic respiratory failure, Sepsis, Pneumonia Primary Care Provider: Dorothy Gibbs ED Provider: Zonia Mendoza Home Meds and New Rx's Prescriptions: No Action metoprolol succinate 50 mg tablet extended release 24 hr 75 mg PO DAILY Qty: 135 5RF clonazepam 0.5 mg tablet 0.5 mg PO QHS Qty: 30 0RF Rx Instructions: administer 30 minutes before bedtime losartan 100 mg tablet 100 mg PO DAILY Qty: 90 12RF albuterol sulfate [Ventolin HFA] 90 mcg/actuation HFA aerosol inhaler 2 puff inhalation Q6H PRN (Reason: shortness of breath or wheezing) Qty: 25.5 4RF Shingrix (PF) 50 mcg/0.5 mL suspension for reconstitution 0.5 ml IM ONCE Qty: 1 1RF Rx Instructions: as a single dose. Repeat in 2 months famotidine 40 mg tablet 40 mg PO DAILY Qty: 90 4RF atorvastatin 40 mg tablet 40 mg PO QPM Qty: 90 4RF cefpodoxime 200 mg tablet 200 mg PO BID Qty: 20 0RF Rx Instructions: must administer with a meal/food Medical Decision Making 77yo F with HTN, HLD, GERD, presenting for altered mental status. History from patient, daughter at bedside, and [facility] record review. Presented initially to the ED 2 days ago with fever, confusion, malaise, and urinary frequency. Workup significant for CT with suggestion of pyelonephritis, equivocal UA which was sent for culture. Treated with ceftriaxone and dced home on course of cefpodaxime. Urine culture grew mixed gram + hollie. Symptoms have not improved and she re-presents to the ED today. No clear infectious symptoms present on history. Initial vital signs here normal and afebrile; patient palpable warm on my exam, temperature rechecked and 40.1 C. HR in 70's, however patient is on metoprolol which may be blunting response. Will treat presumptively for sepsis with IVFB, broad spectrum antibiotics, tylenol, send blood cultures Patient with penicillin allergy; will treat with Vancomycin & ceftazadime, cover for possible enterococcus UTI. No headache, neck pain, or neck stiffness to suggest meningitis; would not get LP. No focal neurologic deficits. Broad workup for altered mental status initiated. Labs reviewed as below, CBC with leukocytosis to 13.5, CMP with hyponatremia (not significantly changed from 2 days prior), worsening kidney and liver function compared to two days prior (Cr 1.7 from 1.3, bilirubin 1.2 from 1.0 with new mild transaminitis). Ammonia negative, TSH low with normal T4. Lactate slightly elevated at 2.3 (will trend) and procal elevated at 5.6 (0.1 two days prior). Head CT independently reviewed, no acute infarct, mass, or bleed on my view; agree with radiology read below. CXR independently reviewed, infiltrate; discussed with radiologist Dr. Herron and agree with radiology read below. Patient requiring 2LNC O2 to maintain sat >92%. Blood pressure remains reassuring with no hypotension. No urine obtained; bladder scan with 125ml, 2nd liter of IVF running. Cathed for UA which did not show suggestion of UTI currently. Will give 3rd liter of IVF. Discussed with hospitalist radio personality and patient accepted to medicine service for sepsis, acute hypoxic respiratory failure, pneumonia. Medical Records Medical records reviewed: Yes I reviewed the patient's medical records. Medical records narrative: ED visit 05/15/23 including note,, labs, imaging Imaging Data Radiologic Study: Imaging: CT Scan Radiologist's impression: IMPRESSION: No acute intracranial findings on this noninfused CT scan of the brain. Radiologic Study #2: Imaging: X-Ray Radiologist's impression: IMPRESSION: Large infiltrate in the left upper lobe. Requires follow-up to resolution to rule out underlying malignancy. Smaller area of infiltrate in the right upper lobe as well as in the left lower lobe posterior basal segment. No obvious pleural effusions evident Lab Data Lab results reviewed: Yes I reviewed the patient's lab results. Labs: 05/17/23 17:40 Blood Blood Culture - Pending 05/17/23 17:17 Blood Blood Culture - Pending Laboratory Tests Range/Units 05/17/23 05/17/23 05/17/23 17:17 17:22 17:46 WBC (4.4-10.8) 10^3/uL 13.56 H RBC (3.93-5.22) 10^6/uL 3.87 L Hgb (11.2-15.7) g/dL 11.5 Hct (36.0-46.0) % 34.9 L MCV (80-95) fL 90 MCH (27.0-33.0) pg 29.7 MCHC (32.0-36.0) % 33.0 RDW (11.7-14.6) % 12.7 Plt Count (130-400) 10^3/uL 212 MPV (8.0-11.0) fL 11.5 H Immature Gran % 1.2 Neutrophils % 87.7 Lymphocytes % 4.5 Monocytes % 5.5 Eosinophils % 0.7 Basophils % 0.4 Nucleated RBC % (0.0-0.3) % 0.0 Absolute Neutrophils (1.2-6.7) 10^3/uL 11.89 H Absolute Lymphocytes (1.2-3.4) 10^3/uL 0.61 L Absolute Monocytes (0.1-0.8) 10^3/uL 0.75 Absolute Eosinophils (0.0-0.7) 10^3/uL 0.09 Absolute Basophils (0.0-0.2) 10^3/uL 0.05 VBG Lactate (0.6-1.4) mmol/L 2.3 H* Sodium (136-145) mmol/L 131 L Potassium (3.5-5.1) mmol/L 3.7 Chloride (98-107) mmol/L 94 L Carbon Dioxide (21.0-32.0) mmol/L 24.5 Anion Gap (3-11) mmol/L 12.5 H BUN (7-18) mg/dL 33 H Creatinine (0.55-1.02) mg/dL 1.7 H Est GFR (CKD-EPI 2020) (mL/min/1.73m2) 31.08 Glucose (74-106) mg/dL 131 H Calcium (8.5-10.1) mg/dL 9.5 Total Bilirubin (0.2-1.0) mg/dL 1.2 H AST (15-37) U/L 90 H ALT (14-59) U/L 72 H Alkaline Phosphatase (46-116) U/L 73 Ammonia (11-32) umol/L < 10 L Total Protein (6.4-8.2) g/dL 7.6 Albumin (3.4-5.0) g/dL 3.0 L Procalcitonin ng/mL 5.6 TSH (0.36-3.74) uIU/mL 0.17 L Free T4 (0.76-1.46) ng/dL 1.17 Urine Color (Yellow) Urine Clarity (Clear) Urine pH (5-8) Ur Specific [place] (1.005-1.025) Urine Protein (Negative) mg/dL Urine Ketones (Negative) mg/dL Urine Blood (Negative) Urine Nitrite (Negative) Urine Bilirubin (Negative) Urine Urobilinogen (Up to 0.2) mg/dL Ur Leukocyte Esterase (Negative) Urine Glucose (Negative) mg/dL COVID-19 Source NASOPHARYNX SARS-CoV-2 (PCR) (Negative) Negative Influenza Type A (PCR) (Negative) Negative Influenza Type B (PCR) (Negative) Negative RSV (PCR) (Negative) Negative Range/Units 05/17/23 19:07 WBC (4.4-10.8) 10^3/uL RBC (3.93-5.22) 10^6/uL Hgb (11.2-15.7) g/dL Hct (36.0-46.0) % MCV (80-95) fL MCH (27.0-33.0) pg MCHC (32.0-36.0) % RDW (11.7-14.6) % Plt Count (130-400) 10^3/uL MPV (8.0-11.0) fL Immature Gran % Neutrophils % Lymphocytes % Monocytes % Eosinophils % Basophils % Nucleated RBC % (0.0-0.3) % Absolute Neutrophils (1.2-6.7) 10^3/uL Absolute Lymphocytes (1.2-3.4) 10^3/uL Absolute Monocytes (0.1-0.8) 10^3/uL Absolute Eosinophils (0.0-0.7) 10^3/uL Absolute Basophils (0.0-0.2) 10^3/uL VBG Lactate (0.6-1.4) mmol/L Sodium (136-145) mmol/L Potassium (3.5-5.1) mmol/L Chloride (98-107) mmol/L Carbon Dioxide (21.0-32.0) mmol/L Anion Gap (3-11) mmol/L BUN (7-18) mg/dL Creatinine (0.55-1.02) mg/dL Est GFR (CKD-EPI 2020) (mL/min/1.73m2) Glucose (74-106) mg/dL Calcium (8.5-10.1) mg/dL Total Bilirubin (0.2-1.0) mg/dL AST (15-37) U/L ALT (14-59) U/L Alkaline Phosphatase (46-116) U/L Ammonia (11-32) umol/L Total Protein (6.4-8.2) g/dL Albumin (3.4-5.0) g/dL Procalcitonin ng/mL TSH (0.36-3.74) uIU/mL Free T4 (0.76-1.46) ng/dL Urine Color (Yellow) Yellow Urine Clarity (Clear) Sl Cloudy Urine pH (5-8) 5.5 Ur Specific [place] (1.005-1.025) >= 1.030 H Urine Protein (Negative) mg/dL >=300 H Urine Ketones (Negative) mg/dL 15 H Urine Blood (Negative) Large H Urine Nitrite (Negative) Negative Urine Bilirubin (Negative) Small H Urine Urobilinogen (Up to 0.2) mg/dL 0.2 Ur Leukocyte Esterase (Negative) Negative Urine Glucose (Negative) mg/dL Negative COVID-19 Source SARS-CoV-2 (PCR) (Negative) Influenza Type A (PCR) (Negative) Influenza Type B (PCR) (Negative) RSV (PCR) (Negative) HPI General Mode of arrival: ambulatory . Date/Time Provider Initiated Documentation: 05/17/23 16:48 . Limitations to Documentation: altered mental status . Information obtained by: patient, family and old records reviewed . HPI Narrative: 77yo F with HTN, HLD, GERD, presenting for altered mental status. History from patient, daughter at bedside, and [facility] record review. Has had worsening confusi on and not acting like herself for the past 3-4 days. Seen in this ED 2 days ago and diagnosed with pyelonephritis, discharged home on course of cefpodaxime. Symptoms have not improved. Has spent the last several days in bed, decreased energy, decreased PO intake. Some diarrhea over the past two days. No nausea, or vomiting. No fevers, chills, cough, rhinnorhea, shortness of breath, chest pain, dysuria, hematuria, flank pain, focal weakness, or other concerns. Related Data Home Medications Medication Instructions Recorded Confirmed metoprolol succinate 50 mg 75 mg (1.5 x 50 mg) PO DAILY #135 06/01/22 05/17/23 tablet,extended release 24 hr tabs atorvastatin 40 mg tablet 40 mg PO QPM #90 tabs 09/18/22 05/17/23 albuterol sulfate 90 mcg/actuation 2 puff inhalation Q6H PRN 11/05/22 05/17/23 aerosol inhaler (Ventolin HFA) shortness of breath or wheezing #25.5 grams clonazepam 0.5 mg tablet 0.5 mg PO QHS #30 tabs 11/05/22 05/17/23 losartan 100 mg tablet 100 mg PO DAILY #90 tab-caps 11/05/22 05/17/23 varicella-zoster glycoE [id number] 0.5 ml IM ONCE #1 ea 11/05/22 05/17/23 adj(PF) 50 mcg/0.5 mL IM susp, kit (Shingrix (PF)) famotidine 40 mg tablet 40 mg PO DAILY #90 tabs 02/11/23 05/17/23 cefpodoxime 200 mg tablet 200 mg PO BID #20 tabs 05/15/23 05/17/23 Previous Rx's Medication Instructions Recorded metoprolol succinate 50 mg 75 mg (1.5 x 50 mg) PO DAILY #135 06/01/22 tablet,extended release 24 hr tabs atorvastatin 40 mg tablet 40 mg PO QPM #90 tabs 09/18/22 albuterol sulfate 90 mcg/actuation 2 puff inhalation Q6H PRN 11/05/22 aerosol inhaler (Ventolin HFA) shortness of breath or wheezing #25.5 grams clonazepam 0.5 mg tablet 0.5 mg PO QHS #30 tabs 11/05/22 losartan 100 mg tablet 100 mg PO DAILY #90 tab-caps 11/05/22 varicella-zoster glycoE [id number] 0.5 ml IM ONCE #1 ea 11/05/22 adj(PF) 50 mcg/0.5 mL IM susp, kit (Shingrix (PF)) famotidine 40 mg tablet 40 mg PO DAILY #90 tabs 02/11/23 cefpodoxime 200 mg tablet 200 mg PO BID #20 tabs 05/15/23 Allergies Allergy/AdvReac Type Severity Reaction Status Date / Time bupropion Allergy Severe Anaphylaxis Unverified 05/17/23 16:57 Penicillins Allergy Mild Large Unverified 05/17/23 16:57 local reaction from IM injection codeine AdvReac Mild Constipatio Unverified 05/17/23 16:57 n lisinopril AdvReac Mild Cough Unverified 05/17/23 16:57 erythromycin base AdvReac Unverified 05/17/23 16:57 hydrochlorothiazide AdvReac Vertigo; Verified 05/17/23 16:57 Dry eyes General Stated Complaint: AMS/LOC BORIS: 2 Review of Systems Narrative: see HPI PFSH All Active Problems Pneumonia (Acute) Sepsis (Acute) Acute hypoxemic respiratory failure (Acute) Fever (Acute) Acute pyelonephritis (Acute) Splinter of finger (Acute) Tachycardia (Acute) 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) Optic nerve swelling (Acute) Decreased hearing of both ears (Acute) Change in mole (Acute) Atrophy of vagina (Acute) Lumbar arthropathy (Acute) Insomnia (Acute) Acute bilateral low back pain (Acute) Foot pain (Acute) Shoulder pain, right (Acute) Abnormal renal function (Chronic 09/14/13) Anxiety (Chronic) Depressive disorder (Chronic) Essential hypertension (Chronic) GERD (gastroesophageal reflux disease) (Chronic 04/17/14) Hiatal hernia (Chronic) Hyperlipidemia (Chronic 02/14/13) Osteopenia (Chronic) T-scores of -1.3 Medical History Bruit Carpal tunnel syndrome of right wrist (11/15/13) Corneal abrasion (05/20/00) Papanicolaou smear of vagina with atypical squamous cells of undetermined significance (ASC-US) (05/20/03) Polyp of corpus uteri Diabetes mellitus Right carotid bruit Corneal abrasion, left 05/20/00 Pap smear vag w ASC-US 05/20/03 neg. high risk HPV Abdominal pain Acquired trigger finger multiple fingers affected Cataract (02/15/14) Asthma GERD (gastroesophageal reflux disease) HTN (hypertension) Hypercholesterolemia Surgical History History of eye surgery Status post carpal tunnel release S/P carpal tunnel release H/O eye surgery 06/21/00 left S/P tubal ligation Open Carpal Tunnel release 01/23/14; RIGHT EYE SURGERY 2000-LEFT Family History Mother , SPINAL STENOSIS at age 80. PMR (polymyalgia rheumatica) Father Diabetes Essential hypertension Depression Heart disease Hyperlipidemia Stroke Brother Essential hypertension Hyperlipidemia Brother Diabetes Essential hypertension Heart disease stents Hyperlipidemia Stroke Brother Essential hypertension Heart disease Bypass Hyperlipidemia Grandfather Neoplasm BLADDER Asthma Grandfather Stroke Grandmother Diabetes Heart disease Neoplasm LEUKEMIA Daughter Asthma Daughter Asthma Social History Smoking/Tobacco Use Status: Never Second Hand Exposure: Yes Smoking risk assessment performed?: Yes Alcohol Intake: current Alcohol Intake frequency: holidays/special occasions only Alcohol type: wine Drug use: Never Substance use type: does not use Caregiver/Support person: No Household members: none Housing: house Communication Needs: Hard of Hearing and Corrective Lenses Do you need help understanding health information?: Never Pets and animals: Yes Pets and animals: cat(s) Sexually active: No Do you think of yourself as: straight/heterosexual Current gender identity: female What is your relationship status?: How often do you talk on the phone with friends or family?: three or more times per week How often do you get together with friends or relatives?: three or more times per week How often do you attend hindu or evangelical services?: decline to answer Do you belong to any clubs or organized social groups?: no Panel score (0-1 are the most socially isolated patients): 1 Brook[place]nn/Restoration: Christian Seatbelt use: always Do you feel safe at home: Yes Do you feel safe in your relationship?: Yes Exam Narrative Exam Narrative: General: Alert, in no acute distress. Head: Normocephalic, atraumatic Neck: Trachea midline, Neck supple. ENT: Slightly dry mucous membranes. Cardiac: RRR, no murmurs appreciated Resp: Slightly tachypenic. No increased work of breathing. CTAB. Abd: Soft, non-distended, nontender : Mild suprapubic tenderness. No CVA tenderness. Extremities: No deformities. No peripheral edema. Neuro: GCS 14, oriented to person and place. PERRL. EOMI. Fluent speech, no dysarthria. Motor- Moves all extremities freely against gravity. Sensation- Intact to light touch and symmetric multiple dermatomes including upper and lower extremities Course Vital Signs Vital signs: Vital Signs Temperature 40.1 C H 05/17/23 16:51 Pulse 73 05/17/23 16:51 Respiratory Rate 18 05/17/23 16:51 Blood Pressure 138/67 05/17/23 16:51 Temperature 40.1 C H 05/17/23 16:51 Temperature Source Oral 05/17/23 16:51 Pulse 73 05/17/23 16:51 Respiratory Rate 18 05/17/23 16:51 Blood Pressure 138/67 05/17/23 16:51 Blood Pressure Position Supine 05/17/23 16:51 Oxygen Delivery Method Room Air 05/17/23 16:51 Oxygen Flow Rate 0 05/17/23 16:51 Pain Level 0 05/17/23 16:51 Lab/Test Results Lab/Test Results: 05/17/23 17:17 Blood Blood Culture - Pending 05/17/23 16:59 Blood Blood Culture - Pending Laboratory Tests Range/Units 05/17/23 17:17 WBC (4.4-10.8) 10^3/uL 13.56 H RBC (3.93-5.22) 10^6/uL 3.87 L Hgb (11.2-15.7) g/dL 11.5 Hct (36.0-46.0) % 34.9 L MCV (80-95) fL 90 MCH (27.0-33.0) pg 29.7 MCHC (32.0-36.0) % 33.0 RDW (11.7-14.6) % 12.7 Plt Count (130-400) 10^3/uL 212 MPV (8.0-11.0) fL 11.5 H Immature Gran % 1.2 Neutrophils % 87.7 Lymphocytes % 4.5 Monocytes % 5.5 Eosinophils % 0.7 Basophils % 0.4 Nucleated RBC % (0.0-0.3) % 0.0 Absolute Neutrophils (1.2-6.7) 10^3/uL 11.89 H Absolute Lymphocytes (1.2-3.4) 10^3/uL 0.61 L Absolute Monocytes (0.1-0.8) 10^3/uL 0.75 Absolute Eosinophils (0.0-0.7) 10^3/uL 0.09 Absolute Basophils (0.0-0.2) 10^3/uL 0.05 VBG Lactate (0.6-1.4) mmol/L 2.3 H* Critical Care Time Critical Care Time Critical Care Time: Yes Total Critical Care Time: 33 Attestation: Due to a high probability of clinically significant, life threatening deterioration, the patient required my highest level of preparedness to intervene emergently and I personally spent this critical care time directly and personally managing the patient. This critical care time included obtaining a history; examining the patient; pulse oximetry; ordering and review of studies; arranging urgent treatment with development of a management plan; evaluation of patient's response to treatment; frequent reassessment; and, discussions with other providers. This critical care time was performed to assess and manage the high probability of imminent, life-threatening deterioration that could result in multi-organ failure. It was exclusive of separately billable procedures.
[2023-05-17 17:51] LABS: Alkaline Phosphatase 73 U/L (46-116); BUN 33 mg/dL (7-18); Bilirubin, Total 1.2 mg/dL (0.2-1.0); CO2 24.5 mmol/L (21.0-32.0); CREATININE 1.7 mg/dL (0.55-1.02); Calcium 9.5 mg/dL (8.5-10.1); Chloride 94 mmol/L (98-107); Estimated GFR 31.08 (mL/min/1.73m2); Glucose 131 mg/dL (74-106); Potassium 3.7 mmol/L (3.5-5.1); Sodium 131 mmol/L (136-145); Total Protein 7.6 g/dL (6.4-8.2)
[2023-05-17 17:52] LABS: ALT 72 U/L (14-59); AST 90 U/L (15-37); Anion Gap 12.5 mmol/L (3-11); TSH (W/Ref FT4) 0.17 uIU/mL (0.36-3.74)
[2023-05-17] MEDS: cefTAZidime 1,000 MG in Normal Saline 100 ML 200 MG IVPB (17:52)
[2023-05-17 18:01] LABS: Procalcitonin 5.6 ng/mL
[2023-05-17 18:05] LABS: Ammonia < 10 umol/L (11-32)
[2023-05-17 18:13] LABS: FREE T4 1.17 ng/dL (0.76-1.46)
[2023-05-17 18:28] LABS: COVID-19 PCR Negative (Negative); Influenza A PCR Negative (Negative); Influenza B PCR Negative (Negative); RSV PCR Negative (Negative)
[2023-05-17 18:36] LABS: Source NASOPHARYNX
--- NOTE | 2023-05-17 18:37 | DI.RAD_ITS ---
Exam(s) XR CHEST 2V PA LATERAL EXAM: XR CHEST 2V PA LATERAL CLINICAL HISTORY: infectious workup. TECHNIQUE: 2D digital imaging was performed. COMPARISON: CT CT ABDOMEN PELVIS W from 05/15/2023 FINDINGS: 2 views: Heart size normal. There is a large area of abnormal infiltrate in the left hilar-suprahilar region left upper lobe. Th ere is also some infiltrate in the right upper lobe. Mild infiltrate in the left lower lobe posterio r basal segment. There are no obvious pleural effusions. No pneumothorax. No fractures evident. IMPRESSION: Large infiltrate in the left upper lobe. Requires follow-up to resolution to rule out underlying mal ignancy. Smaller area of infiltrate in the right upper lobe as well as in the left lower lobe posterior basal segment. No obvious pleural effusions evident Called by myself to ER physician. DATA REPOSITORY: RADIATION DOSE DELIVERED:
[2023-05-17] MEDS: VANCOMYCIN/WATER (PEG) 1 GM/200 ML BAG IVPB (18:44)
[2023-05-17 19:12] LABS: Bilirubin Small (Negative); Blood Large (Negative); Clarity Sl Cloudy (Clear); Glucose Negative (Negative); Ketones 15 mg/dL (Negative); Leukocyte Esterase Negative (Negative); Nitrite Negative (Negative); Specific Gravity >= 1.030 (1.005-1.025); Urobilinogen 0.2 mg/dL (Up to 0.2); pH 5.5 (5-8)
[2023-05-17 19:20] LABS: Bacteria Few HPF (Negative); C & S Indicated? No; Casts Negative LPF (Negative); Crystals Moderate Amorphous HPF (Negative); Epithelial Cells Rare HPF (Negative); Mucus Negative (Negative); RBC 0-2 HPF (0-2); WBC 0-2 HPF (0-5)
--- NOTE | 2023-05-17 19:34 | HPE_ITS ---
Date of service: 05/17/23 Time of Service: 19:34 Assessment and Plan Assessment and plan (1) Pneumonia: Status: Acute Assessment and plan: Pneumonia. I see no indication at present for Vancomycin, will continue Ceftazidime and add Zithromax for atypical coverage; will add urinary Legionella antigen. Patient's blood pressure satisfactory and despite slight elevated lactate is not presenting as septic picture at present. Patient also modestly azotemic and will hydrate and trend renal function. Reviewed ADs, requests Full Code. 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 Work up of note for microscopic hematuria, sent home on Cefpodoxime. Returns tonight with continued nonspecific symptoms. W/U of note for temp to 40.1. sat 89% RA, white count 13 and CXR showing dense JAMEL infiltrate (and smaller RUL and possible LLL). Lactate 2.3,Procal 5.6, BUN 33, Creat 1.7. Blood cxx obtained and patient given doses of Ceftazidime and Vancomycin. I was asked to evaluate for admission. Note that urine cxx from prior ER visit mixed GPF. COVID negative. Review of Systems Narrative: per HPI PFSH All Active Problems Pneumonia (Acute) Sepsis (Acute) Acute hypoxemic respiratory failure (Acute) Fever (Acute) Acute pyelonephritis (Acute) Splinter of finger (Acute) Tachycardia (Acute) 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) Optic nerve swelling (Acute) Decreased hearing of both ears (Acute) Change in mole (Acute) Atrophy of vagina (Acute) Lumbar arthropathy (Acute) Insomnia (Acute) Acute bilateral low back pain (Acute) Foot pain (Acute) Shoulder pain, right (Acute) Abnormal renal function (Chronic 09/14/13) Anxiety (Chronic) Depressive disorder (Chronic) Essential hypertension (Chronic) GERD (gastroesophageal reflux disease) (Chronic 04/17/14) Hiatal hernia (Chronic) Hyperlipidemia (Chronic 02/14/13) Osteopenia (Chronic) T-scores of -1.3 Medical History Bruit Carpal tunnel syndrome of right wrist (11/15/13) Corneal abrasion (05/20/00) Papanicolaou smear of vagina with atypical squamous cells of undetermined significance (ASC-US) (05/20/03) Polyp of corpus uteri Diabetes mellitus Right carotid bruit Corneal abrasion, left 05/20/00 Pap smear vag w ASC-US 05/20/03 neg. high risk HPV Abdominal pain Acquired trigger finger multiple fingers affected Cataract (02/15/14) Asthma GERD (gastroesophageal reflux disease) HTN (hypertension) Hypercholesterolemia Surgical History History of eye surgery Status post carpal tunnel release S/P carpal tunnel release H/O eye surgery 06/21/00 left S/P tubal ligation Open Carpal Tunnel release 01/23/14; RIGHT EYE SURGERY 2000-LEFT Family History Mother , SPINAL STENOSIS at age 80. PMR (polymyalgia rheumatica) Father Diabetes Essential hypertension Depression Heart disease Hyperlipidemia Stroke Brother Essential hypertension Hyperlipidemia Brother Diabetes Essential hypertension Heart disease stents Hyperlipidemia Stroke Brother Essential hypertension Heart disease Bypass Hyperlipidemia Grandfather Neoplasm BLADDER Asthma Grandfather Stroke Grandmother Diabetes Heart disease Neoplasm LEUKEMIA Daughter Asthma Daughter Asthma Social History Smoking/Tobacco Use Status: Never Second Hand Exposure: Yes Smoking risk assessment performed?: Yes Alcohol Intake: current Alcohol Intake frequency: holidays/special occasions only Alcohol type: wine Drug use: Never Substance use type: does not use Caregiver/Support person: No Household members: none Housing: house Communication Needs: Hard of Hearing and Corrective Lenses Do you need help understanding health information?: Never Pets and animals: Yes Pets and animals: cat(s) Sexually active: No Do you think of yourself as: straight/heterosexual Current gender identity: female What is your relationship status?: How often do you talk on the phone with friends or family?: three or more times per week How often do you get together with friends or relatives?: three or more times per week How often do you attend catholic or latter-day services?: decline to answer Do you belong to any clubs or organized social groups?: no Panel score (0-1 are the most socially isolated patients): 1 Brooklynn/Oriental Orthodox: Mormonism Seatbelt use: always Do you feel safe at home: Yes Do you feel safe in your relationship?: Yes Meds Allergies and Home Medications Allergies Allergy/AdvReac Type Severity Reaction Status Date / Time bupropion Allergy Severe Anaphylaxis Unverified 05/17/23 16:57 Penicillins Allergy Mild Large Unverified 05/17/23 16:57 local reaction from IM injection codeine AdvReac Mild Constipatio Unverified 05/17/23 16:57 n lisinopril AdvReac Mild Cough Unverified 05/17/23 16:57 erythromycin base AdvReac Unverified 05/17/23 16:57 hydrochlorothiazide AdvReac Vertigo; Verified 05/17/23 16:57 Dry eyes Home Medications Medication Instructions Recorded Confirmed Type metoprolol succinate 50 mg 75 mg (1.5 x 50 mg) PO DAILY #135 06/01/22 05/17/23 Rx tablet,extended release 24 hr tabs atorvastatin 40 mg tablet 40 mg PO QPM #90 tabs 09/18/22 05/17/23 Rx albuterol sulfate 90 mcg/actuation 2 puff inhalation Q6H PRN 11/05/22 05/17/23 Rx aerosol inhaler (Ventolin HFA) shortness of breath or wheezing #25.5 grams clonazepam 0.5 mg tablet 0.5 mg PO QHS #30 tabs 11/05/22 05/17/23 Rx losartan 100 mg tablet 100 mg PO DAILY #90 tab-caps 11/05/22 05/17/23 Rx varicella-zoster glycoE [id number] 0.5 ml IM ONCE #1 ea 11/05/22 05/17/23 Rx adj(PF) 50 mcg/0.5 mL IM susp, kit (Shingrix (PF)) famotidine 40 mg tablet 40 mg PO DAILY #90 tabs 02/11/23 05/17/23 Rx cefpodoxime 200 mg tablet 200 mg PO BID #20 tabs 05/15/23 05/17/23 Rx Exam Narrative Exam Narrative: 146/50, 116, 38 (40.1, max), 20, 93 % (2L). HEENT atraumatic; neck supple; lungs minimal [id number] sounds JAMEL, w/o egophany; heart tachy/regular; abdomen soft and NT; extremities w/o edema; neuro Ox3. lucid, moves all 4s Results Labs 05/17/23 17:17 05/17/23 17:17 Labs: Laboratory Results - last 24 hr 05/17/23 05/17/23 05/17/23 17:17 17:22 17:46 WBC 13.56 H RBC 3.87 L Hgb 11.5 Hct 34.9 L MCV 90 MCH 29.7 MCHC 33.0 RDW 12.7 Plt Count 212 MPV 11.5 H Immature Gran % 1.2 Neutrophils % 87.7 Lymphocytes % 4.5 Monocytes % 5.5 Eosinophils % 0.7 Basophils % 0.4 Nucleated RBC % 0.0 Absolute Neutrophils 11.89 H Absolute Lymphocytes 0.61 L Absolute Monocytes 0.75 Absolute Eosinophils 0.09 Absolute Basophils 0.05 VBG Lactate 2.3 H* Sodium 131 L Potassium 3.7 Chloride 94 L Carbon Dioxide 24.5 Anion Gap 12.5 H BUN 33 H Creatinine 1.7 H Est GFR (CKD-EPI 2020) 31.08 Glucose 131 H Calcium 9.5 Total Bilirubin 1.2 H AST 90 H ALT 72 H Alkaline Phosphatase 73 Ammonia < 10 L Total Protein 7.6 Albumin 3.0 L Procalcitonin 5.6 TSH 0.17 L Free T4 1.17 Urine Color Urine Clarity Urine pH Ur Specific [place] Urine Protein Urine Ketones Urine Blood Urine Nitrite Urine Bilirubin Urine Urobilinogen Ur Leukocyte Esterase Urine RBC Urine WBC Ur Epithelial Cells Urine Crystals Urine Bacteria Urine Casts Urine Mucus Ur Culture Indicated? Urine Glucose COVID-19 Source NASOPHARYNX SARS-CoV-2 (PCR) Negative Influenza Type A (PCR) Negative Influenza Type B (PCR) Negative RSV (PCR) Negative 05/17/23 19:07 WBC RBC Hgb Hct MCV MCH MCHC RDW Plt Count MPV Immature Gran % Neutrophils % Lymphocytes % Monocytes % Eosinophils % Basophils % Nucleated RBC % Absolute Neutrophils Absolute Lymphocytes Absolute Monocytes Absolute Eosinophils Absolute Basophils VBG Lactate Sodium Potassium Chloride Carbon Dioxide Anion Gap BUN Creatinine Est GFR (CKD-EPI 2020) Glucose Calcium Total Bilirubin AST ALT Alkaline Phosphatase Ammonia Total Protein Albumin Procalcitonin TSH Free T4 Urine Color Yellow Urine Clarity Sl Cloudy Urine pH 5.5 Ur Specific [place] >= 1.030 H Urine Protein >=300 H Urine Ketones 15 H Urine Blood Large H Urine Nitrite Negative Urine Bilirubin Small H Urine Urobilinogen 0.2 Ur Leukocyte Esterase Negative Urine RBC 0-2 Urine WBC 0-2 Ur Epithelial Cells Rare Urine Crystals Moderate Amorphous Urine Bacteria Few Urine Casts Negative Urine Mucus Negative Ur Culture Indicated? No Urine Glucose Negative COVID-19 Source SARS-CoV-2 (PCR) Influenza Type A (PCR) Influenza Type B (PCR) RSV (PCR) Last Vital Signs Temp 38.0 C H 05/17/23 18:42 Pulse 116 H 05/17/23 17:39 Resp 20 05/17/23 17:32 BP 146/50 H 05/17/23 17:31 Pulse Ox 93 05/17/23 17:40 PAWSS Have you Been Recently Intoxicated or Drunk Within the Last 30 days?: No Have you Ever Experienced Previous Episodes of Alcohol Withdrawal?: No Have you ever Experienced Withdrawal Seizures?: No Have you ever Experienced Delirium Tremens(DT)s?: No Have you ever undergone Alcohol Rehabilitation Treatment (i.e, inpt ot outpatient treatment programs)?: No Have you ever Experienced Blackouts?: No Have you ever Combined Alcohol with other Downers within the last 90 days?: No Have you ever Combined Alcohol with any other Substance of Abuse during the last 90 days?: No Positive Blood Alcohol level on Presentation? [PCS.BAL]: No Evidence of Increased Autonomic Activity (i.e. HR>120, tremor, sweating, agitation, nausea)?: No Result: 0 Time Spent Time spent with Patient: 40-54 minutes Time was spent: preparing to see the patient(eg.review tests), obtaining and/or reviewing separately [facility], ordering medications,tests, procedures, referring, communicating with other health health care sanitary technician and indepentently interpreting results
[2023-05-17 20:21] LABS: Lactate 0.7 mmol/L (0.6-1.4)
[2023-05-17] MEDS: Lactated Ringers 1,000 ML 100 ML IV (21:06)
[2023-05-17] MEDS: Albuterol/Ipratropium 3 ML UPD VIAL UPD (21:30)
[2023-05-17] MEDS: AZITHROMYCIN 500 MG in Normal Saline 250 ML 250 MG IVPB (21:40)
--- NOTE | 2023-05-17 21:46 | RESPIRATORY ---
RT Assessment Start: 05/17/23 21:07 Freq: .q shift and prn Status: Active Protocol: Document 05/17/23 21:19 MARCY (Rec: 05/17/23 21:35 MARCY [id number]) RT Assessment Pulmonary History Pulmonary History Asthma Smoking History Smoking/Tobacco Use Status Never OXYGEN HISTORY: CPAP Settings N/A BIPAP Settings N/A Trilogy/AVAPS Settings N/A DME/Compliance DME N/A Current Respiratory Symptoms Current Respiratory Symptoms Cough,Shortness of breath, Sputum production Activity Activity Level Usually very active, kayaks 3x per week, and walked alot Respiratory Breath Sounds Breath Sounds Faint wheezing or rhonci, decreased sounds throughout Response Mild response,subjective improvement Pulse Rate <100 Respiratory Rate 18-25 Shortness of Breath At rest Respiratory Therapy Score Total 6 Assessment and Plan RT Treatment Protocol Bronchodilator Aerosol Therapy Protocol,Lung Expansion Therapy Protocol,Bronchial Hygiene Therapy Protocol Note Pt has hx of asthma, Gee ordered Q6 DIONISIO and RT instructed patient on IS & Acapella. Reassess in 48 hours on to see if possible to D/Traci ruiz
[2023-05-17] MEDS: Normal Saline Flush 10 ML SYR (22:44)
[2023-05-17] MEDS: methylPREDNISolone SUCC 125 MG VIAL 80 MG IVP (22:45)
[2023-05-18] VITALS (30 sets, daily range): BP systolic 98–138; BP diastolic 44–83; PULSE 75–111; RESP 2–28; TEMP 35.7–37.9; O2SAT 77–97
[2023-05-18] MEDS: Prochlorperazine 10 MG/2 ML VIAL IVP (00:25)
--- NOTE | 2023-05-18 00:30 | NUR.NOTE ---
Nursing Note: Just after midnight, pt was assisted to the BSC as she reported feeling that she needed to have a BM. RN assisted pt to side of bed then stand/ pivot to BSC. Pt was awake and talking throughout. Once she was finished, RN assisted her with perineal care and replaced brief. As pt was preparing to pivot back to bed, pt began to devlop SOB with audible wheezing. Assisted pt to lie back in bed. Pt became somnolent and was snoring. Placed spo2 monitor on and noted sats maintaining in 70s with high @ 77 on 2l NC. Elevated HOB to 45 degrees and snoring improved but loud audible expiratory wheezing persisted. Page LENS SILVERER and notified CC of status change. Initiated rapid response. Increased NC to 3L. Pt noted to be tachypneic at 28 bpm, pursed lip breathing with prolonged expiratory phase, and supraclavicular retractions. Unable to arouse pt with voice, vigorous shaking. Assessed carotid pulse and noted strong pulse. Assessed BG. Noted to be 160. Pt unresponsive to pain. Performed sternal rub and pt minimally responsive, moaning, but immediately returned to sleep. Dr. Camp came to bedside to assess pt. VBG ordered, drawn by lab. Narcan ordered and given per MAR with no effect. Pupils pinpoint with no appreciable reactivity. Babinski reflex assessed by MD and noted to be abnormal. Head CT initially ordered but canceled by MD after noting she had one performed in ED earlier today. Dr. Camp declined ICU transfer at this time. Repositioned pt in bed and placed on continuous telemetry with pulse oximetry. Set BP to assess VS frequently to keep closer monitoring. Pt slightly more arousable, waking to loud voice with shaking, but still unable to hold eyes open extended periods. Pupils remain pinpoint with minimal reactivity.
[2023-05-18] MEDS: Naloxone 0.4 MG/ML VIAL IVP (00:47)
[2023-05-18 00:51] LABS: BE (Venous) -6 mmol/L (-2-3); HCO3 (Venous) 19 mmol/L (23-28); O2 Sat (Venous) 96 %; TCO2 (Venous) 18 mmol/L (24-29); pCO2 (Venous) 34 mmHg (41-51); pH (Venous) 7.37 (7.31-7.41); pO2 (Venous) 75 mmHg
--- NOTE | 2023-05-18 01:09 | W.EVENT ---
Date of service: 05/18/23 Time of Service: 01:09 Event Note: Called for unresponsiveness. Patient just recently admitted with pneumonia. Received dose of 5 mg Compazine IV for nausea. Shortly thereafter -- few minutes -- patient helped to commode and while getting back to bed noted to have dropped sats to 70s. O2 increased 2 to 3 with immediate read back in low 90s, but patient noted to be unresponsive. On my arrival BP approx 100 sys/ pulse approx 80 and regular; RR 24 and sat 93% 3L. Neuro exam: pupils pinpoint, EOMI, no facial asymettry, semi purposeful response to sternal rub, moving all 4s, left toe upgoing. Patient received Narcan 0.4 w/o effect. While then boosting patient back up in bed she became visibly more alert, though still sleepy, answering questions, responding to commands. Pupils slightly larger, 1-2 mm, left toe marginally up. A/P Sudden LOC and recovery. The timing strongly suggests effect of Compazine, though prompt recovery then not consistent with drug effect. TIA possible, though exam did not lateralize (except for upgoing toe on left), while depressed consciousness suggests possible brainstem lesion. Doubt seizure as there was no post-ictal phase. Not arrythmia as there was regular pulse and good BP throughout. Will monitor overnight, forego any further Compazine (will use Zofran if needed. There is potential interaction with Zithro and QT prolongation, but will assess via Tely). Will give single dose ASA 325 now and consider CTA neck. Time Spent with Patient Time spent in critical care(minutes): 45 Time Spent Included: Documenting critically ill care, Time at immediate bedside and Discussing critically ill care with other medical staff
[2023-05-18] MEDS: cefTAZidime 1,000 MG in Normal Saline 100 ML 200 MG IVPB (02:02)
[2023-05-18] MEDS: ACETAMINOPHEN 1,000 MG/100 ML BTL 400 MG IVPB (02:31)
[2023-05-18] MEDS: Aspirin 325 MG TAB PO (02:39)
--- NOTE | 2023-05-18 03:22 | NUR.NOTE ---
Nursing Note: Pt has remained somnolent with minimal arousal to loud voice and gentle shaking, quickly returning to sleep, unable to hold eyes open for conversation. Pt awoke briefly to take ordered NOW dose of ASA with ongoing coaching to open mouth, swallow pill and water to ensure that it was swallowed safely. Pt reports feeling extremely drowsy, but can wake to respond to brief questioning. VS remain stable. Pt was placed on face mask earlier and increased to 4L due to spo2 hanging around 90-91%. Pt mouth breathing, pursed lip. Spo2 increased to 93-94% on 4L oxymask after initial application. Pt spo2 now @ 96-97%. Titrated o2 to 3L at this time. Monitoring ongoing.
--- NOTE | 2023-05-18 04:18 | NUR.NOTE ---
Nursing Note: Pt had not had void in 6 hours and last output was minimal after receiving IVF boluses followed by continuous IVF. Performed bladder scan and noted average ~ 450 ml in bladder. Pt woke with loud voice and gentle shaking. Pt believed she could void if she got up to BSC. Called second RN to assist for safety. Pt reported dizziness when sitting up on side of bed. VS assessed with no orthostatic changes noted. Pt got up to bsc and was able to void 425 ml without incident. Pt assisted back to bed and positioned for comfort. Pt reported brief feeling of vertigo after returning to bed. Pt denied SOB, chest pain, or pressure. No appreciable increase in WOB noted. Pt was able to stay awake briefly but returned to sleep within 5 min. SPO2 holding at 96% on 3L. Weaned oxymask to 2L. VS remain stable. Monitoring ongoing.
[2023-05-18 07:25] LABS: HCT 33.1 % (36.0-46.0); MCH 29.9 pg (27.0-33.0); MCHC 33.2 % (32.0-36.0); MCV 90 fL (80-95); MPV 11.6 fL (8.0-11.0); Platelet Count 197 10^3/uL (130-400); RBC 3.68 10^6/uL (3.93-5.22); RDW 12.8 % (11.7-14.6); RDW-SD 42.3 fL; WBC 10.58 10^3/uL (4.4-10.8)
[2023-05-18 07:35] LABS: Anion Gap 11.6 mmol/L (3-11); BUN 31 mg/dL (7-18); CO2 19.4 mmol/L (21.0-32.0); CREATININE 1.5 mg/dL (0.55-1.02); Calcium 8.5 mg/dL (8.5-10.1); Chloride 102 mmol/L (98-107); Estimated GFR 36.12 (mL/min/1.73m2); Glucose 161 mg/dL (74-106); Potassium 3.7 mmol/L (3.5-5.1); Sodium 133 mmol/L (136-145)
--- NOTE | 2023-05-18 08:45 | NUR.NOTE ---
Nursing Note: At approximately 0840 on 05/18/23, this RN returned a call from Lor (pt.'s daughter - on HIPAA). RN updated pt.'s daughter regarding how the pt.'s night had gone and how the pt.'s morning is going. RN updated the pt.'s daughter regarding the fact that a rapid response was called on the pt. overnight, that the pt. was having respiratory difficulty and was lethargic, responding only to painful stimuli (sternal rub), that the MD and RT came to assess the pt., that the pt. was placed on oxygen, that the pt. had a VBG, labs, and blood cultures drawn, and the the blood culture and urine culture are still pending. RN also updated the pt.'s daughter regarding the fact that the pt. is more awake and alert this morning, that the pt.'s VS are stable, and that the pt. appears more stable than last night at this time. Pt.'s daughter verbalized understanding and requested that she be called with any critical changes in the pt.'s care throughout the day. Pt.'s daughter then stated that she would be over to visit the pt. around 1400 this afternoon (05/18/23). RN instructed the pt.'s daughter to call with any other questions or concerns. Phone call then ended.
[2023-05-18] MEDS: Losartan 50 MG TAB 100 MG PO (08:56)
[2023-05-18] MEDS: Famotidine 20 MG TAB PO (08:56)
[2023-05-18] MEDS: Metoprolol CR 25 MG TABCR 75 MG PO (08:56)
--- NOTE | 2023-05-18 09:50 | INITIAL_ITS ---
Date of service: 05/18/23 Time of Service: 09:50 Care Management Initial Assmt Initial Assessment REASON FOR HOSPITALIZATION:: Pneumonia PREVIOUS FUNCTIONAL STATUS/SOCIAL/FAMILY SUPPORTS:: Jenifer lives alone in a single family home on [address] in [place]. She is ; her of lymphoma about 5 years ago. Jenifer has 2 daughters and 5 grandchildren. Her daughter Lor lives in [place] and Jenifer is very close to her and her children. Her other daughter Allyson lives in [place] and she is estranged from both Jenifer and Lor. 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 She is independent at baseline and does not receive any community services. CURRENT FUNCTIONAL STATUS:: Jenifer was sitting up in bed when CM met with her. She was pleasant in interaction and agreeable to conversation. Jenifer was quite talkative and shared some stories about her marriage and time caring for her ill . She also talked a bit about her daughter Allyson and some of the issues she has had over the years. Unfortunately Jenifer does not get to see or communicate much with Allyson's 2 sons, although they seem to be more responsive to her efforts recently. Jenifer does not anticipate needing any additional services upon discharge. ADVANCE DIRECTIVES:: [facility] form on file listing Lor Pink as agent (daughter) Has patient been provided with info about the portal/API?: Yes Did the patient sign up for the portal?: Yes CODE STATUS:: Full Code INSURANCE COVERAGE / FINANCIAL ISSUES:: [employer] Medicare Replacement CURRENT HOME/COMMUNITY SERVICES/EQUIPMENT:: none PRIMARY CARE PHYSICIAN:: Dorothy Gibbs POTENTIAL DISCHARGE NEEDS:: follow up with PCP and plan of care PATIENT/FAMILY EDUCATION NEEDS:: review of discharge instructions, activity, li mitations, follow up plan, discuss Ask Me Three TRANSPORTATION:: via private vehicle with family PLAN:: Anticipate Jenifer will be discharged home with no new services. She will follow up with her community providers and plan of care and transport with family. CM will follow and continue to support discharge needs. PFSH All Active Problems (Updated 05/18/23 @ 11:22 by Keo Najera MD) Acute hypoxemic respiratory failure (Acute) Severe sepsis (Acute) Pneumonia (Acute) Sepsis (Acute) Acute hypoxemic respiratory failure (Acute) Fever (Acute) Acute pyelonephritis (Acute) Splinter of finger (Acute) Tachycardia (Acute) 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) Optic nerve swelling (Acute) Decreased hearing of both ears (Acute) Change in mole (Acute) Atrophy of vagina (Acute) Lumbar arthropathy (Acute) Insomnia (Acute) Acute bilateral low back pain (Acute) Foot pain (Acute) Shoulder pain, right (Acute) Abnormal renal function (Chronic 09/14/13) Anxiety (Chronic) Depressive disorder (Chronic) Essential hypertension (Chronic) GERD (gastroesophageal reflux disease) (Chronic 04/17/14) Hiatal hernia (Chronic) Hyperlipidemia (Chronic 02/14/13) Osteopenia (Chronic) T-scores of -1.3 Medical History Bruit Carpal tunnel syndrome of right wrist (11/15/13) Corneal abrasion (05/20/00) Papanicolaou smear of vagina with atypical squamous cells of undetermined significance (ASC-US) (05/20/03) Polyp of corpus uteri Diabetes mellitus Right carotid bruit Corneal abrasion, left 05/20/00 Pap smear vag w ASC-US 05/20/03 neg. high risk HPV Abdominal pain Acquired trigger finger multiple fingers affected Cataract (02/15/14) Asthma GERD (gastroesophageal reflux disease) HTN (hypertension) Hypercholesterolemia Surgical History History of eye surgery Status post carpal tunnel release S/P carpal tunnel release H/O eye surgery 06/21/00 left S/P tubal ligation Open Carpal Tunnel release 01/23/14; RIGHT EYE SURGERY 2000-LEFT Family History Mother , SPINAL STENOSIS at age 80. PMR (polymyalgia rheumatica) Father Diabetes Essential hypertension Depression Heart disease Hyperlipidemia Stroke Brother Essential hypertension Hyperlipidemia Brother Diabetes Essential hypertension Heart disease stents Hyperlipidemia Stroke Brother Essential hypertension Heart disease Bypass Hyperlipidemia Grandfather Neoplasm BLADDER Asthma Grandfather Stroke Grandmother Diabetes Heart disease Neoplasm LEUKEMIA Daughter Asthma Daughter Asthma Social History Smoking/Tobacco Use Status: Never Second Hand Exposure: Yes Smoking risk assessment performed?: Yes Alcohol Intake: current Alcohol Intake frequency: holidays/special occasions only Alcohol type: wine Drug use: Never Substance use type: does not use Caregiver/Support person: No Household members: none Housing: house Communication Needs: Hard of Hearing and Corrective Lenses Do you need help understanding health information?: Never Pets and animals: Yes Pets and animals: cat(s) Sexually active: No Do you think of yourself as: straight/heterosexual Current gender identity: female What is your relationship status?: How often do you talk on the phone with friends or family?: three or more times per week How often do you get together with friends or relatives?: three or more times per week How often do you attend religious or yarsani services?: decline to answer Do you belong to any clubs or organized social groups?: no Panel score (0-1 are the most socially isolated patients): 1 Brooklynn/Mandaeism: Jainism Seatbelt use: always Do you feel safe at home: Yes Do you feel safe in your relationship?: Yes
[2023-05-18] MEDS: Albuterol/Ipratropium 3 ML UPD VIAL UPD ×2 (09:56→16:45)
[2023-05-18] MEDS: Lactated Ringers 1,000 ML 100 ML IV (10:33)
--- NOTE | 2023-05-18 11:17 | W.PM.PROGNOT ---
Date of Service Date of service: 05/18/23 Time of Service: 11:18 Assessment and Plan Assessment and plan (1) Severe sepsis: Status: Acute Assessment and plan: - Patient is severe sepsis criteria admission with a temperature of 104.1, heart rate of 120, white blood cell count of 13, and a lactic acid of 2.3 with source of infection being left upper lobe pneumonia -Repeat lactic acid was within normal limits -Was initially treated with Vanco and ceftazidime -Currently on ceftazidime and azithromycin which will be continued for total 5-day therapy -Follow-up a.m. CBC, blood cultures (2) Pneumonia: Status: Acute Assessment and plan: - As noted above Qualifiers: Pneumonia type: due to unspecified organism Laterality: left Lung location: upper lobe of lung Qualified Code(s): J18.9 - Pneumonia, unspecified organism (3) Acute hypoxemic respiratory failure: Status: Acute Assessment and plan: - Secondary to severe sepsis and treated acquired pneumonia as noted above -Required up to 4 L nasal cannula of supplemental oxygen -Currently on 1 L nasal cannula, wean as tolerated (4) Hyperlipidemia: Status: Chronic Assessment and plan: - Continue home statin therapy (5) Essential hypertension: Status: Chronic Assessment and plan: - Continue home losartan, Toprol-XL Subjective Subjective Interval history since last seen: Patient states that she is feeling much better as compared to admission. She understands that she is being treated for pneumonia and otherwise has no other complaints or concerns at this Exam Narrative Exam Narrative: Well-appearing older female lying in bed in no acute distress, 1 L nasal cannula in place, ANO x 4, heart regular rate and rhythm, lungs with coarse breath sounds in the left upper lobe otherwise clear to auscultation Objective Last Vital Signs Temp 96.6 F L 05/18/23 10:38 Pulse 77 05/18/23 10:38 Resp 18 05/18/23 10:38 BP 125/61 05/18/23 10:38 Pulse Ox 97 05/18/23 10:38 Laboratory Results - last 24 hr 05/17/23 05/17/23 05/17/23 17:17 17:22 17:46 WBC 13.56 H RBC 3.87 L Hgb 11.5 Hct 34.9 L MCV 90 MCH 29.7 MCHC 33.0 RDW 12.7 Plt Count 212 MPV 11.5 H Immature Gran % 1.2 Neutrophils % 87.7 Lymphocytes % 4.5 Monocytes % 5.5 Eosinophils % 0.7 Basophils % 0.4 Nucleated RBC % 0.0 Absolute Neutrophils 11.89 H Absolute Lymphocytes 0.61 L Absolute Monocytes 0.75 Absolute Eosinophils 0.09 Absolute Basophils 0.05 VBG pH VBG pCO2 VBG pO2 VBG HCO3 VBG Total CO2 VBG O2 Saturation VBG Base Excess VBG Lactate 2.3 H* Sodium 131 L Potassium 3.7 Chloride 94 L Carbon Dioxide 24.5 Anion Gap 12.5 H BUN 33 H Creatinine 1.7 H Est GFR (CKD-EPI 2020) 31.08 Glucose 131 H Calcium 9.5 Total Bilirubin 1.2 H AST 90 H ALT 72 H Alkaline Phosphatase 73 Ammonia < 10 L Total Protein 7.6 Albumin 3.0 L Procalcitonin 5.6 TSH 0.17 L Free T4 1.17 Urine Color Urine Clarity Urine pH Ur Specific [place] Urine Protein Urine Ketones Urine Blood Urine Nitrite Urine Bilirubin Urine Urobilinogen Ur Leukocyte Esterase Urine RBC Urine WBC Ur Epithelial Cells Urine Crystals Urine Bacteria Urine Casts Urine Mucus Ur Culture Indicated? Urine Glucose COVID-19 Source NASOPHARYNX SARS-CoV-2 (PCR) Negative Influenza Type A (PCR) Negative Influenza Type B (PCR) Negative RSV (PCR) Negative 05/17/23 05/17/23 05/18/23 19:07 20:17 00:47 WBC RBC Hgb Hct MCV MCH MCHC RDW Plt Count MPV Immature Gran % Neutrophils % Lymphocytes % Monocytes % Eosinophils % Basophils % Nucleated RBC % Absolute Neutrophils Absolute Lymphocytes Absolute Monocytes Absolute Eosinophils Absolute Basophils VBG pH 7.37 VBG pCO2 34 L VBG pO2 75 VBG HCO3 19 L VBG Total CO2 18 L VBG O2 Saturation 96 VBG Base Excess -6 L VBG Lactate 0.7 Sodium Potassium Chloride Carbon Dioxide Anion Gap BUN Creatinine Est GFR (CKD-EPI 2020) Glucose Calcium Total Bilirubin AST ALT Alkaline Phosphatase Ammonia Total Protein Albumin Procalcitonin TSH Free T4 Urine Color Yellow Urine Clarity Sl Cloudy Urine pH 5.5 Ur Specific [place] >= 1.030 H Urine Protein >=300 H Urine Ketones 15 H Urine Blood Large H Urine Nitrite Negative Urine Bilirubin Small H Urine Urobilinogen 0.2 Ur Leukocyte Esterase Negative Urine RBC 0-2 Urine WBC 0-2 Ur Epithelial Cells Rare Urine Crystals Moderate Amorphous Urine Bacteria Few Urine Casts Negative Urine Mucus Negative Ur Culture Indicated? No Urine Glucose Negative COVID-19 Source SARS-CoV-2 (PCR) Influenza Type A (PCR) Influenza Type B (PCR) RSV (PCR) 05/18/23 07:13 WBC 10.58 RBC 3.68 L Hgb 11.0 L Hct 33.1 L MCV 90 MCH 29.9 MCHC 33.2 RDW 12.8 Plt Count 197 MPV 11.6 H Immature Gran % Neutrophils % Lymphocytes % Monocytes % Eosinophils % Basophils % Nucleated RBC % Absolute Neutrophils Absolute Lymphocytes Absolute Monocytes Absolute Eosinophils Absolute Basophils VBG pH VBG pCO2 VBG pO2 VBG HCO3 VBG Total CO2 VBG O2 Saturation VBG Base Excess VBG Lactate Sodium 133 L Potassium 3.7 Chloride 102 Carbon Dioxide 19.4 L Anion Gap 11.6 H BUN 31 H Creatinine 1.5 H Est GFR (CKD-EPI 2020) 36.12 Glucose 161 H Calcium 8.5 Total Bilirubin AST ALT Alkaline Phosphatase Ammonia Total Protein Albumin Procalcitonin TSH Free T4 Urine Color Urine Clarity Urine pH Ur Specific [place] Urine Protein Urine Ketones Urine Blood Urine Nitrite Urine Bilirubin Urine Urobilinogen Ur Leukocyte Esterase Urine RBC Urine WBC Ur Epithelial Cells Urine Crystals Urine Bacteria Urine Casts Urine Mucus Ur Culture Indicated? Urine Glucose COVID-19 Source SARS-CoV-2 (PCR) Influenza Type A (PCR) Influenza Type B (PCR) RSV (PCR) PAWSS Have you Been Recently Intoxicated or Drunk Within the Last 30 days?: No Have you Ever Experienced Previous Episodes of Alcohol Withdrawal?: No Have you ever Experienced Withdrawal Seizures?: No Have you ever Experienced Delirium Tremens(DT)s?: No Have you ever undergone Alcohol Rehabilitation Treatment (i.e, inpt ot outpatient treatment programs)?: No Have you ever Experienced Blackouts?: No Have you ever Combined Alcohol with other Downers within the last 90 days?: No Have you ever Combined Alcohol with any other Substance of Abuse during the last 90 days?: No Positive Blood Alcohol level on Presentation? [PCS.BAL]: No Evidence of Increased Autonomic Activity (i.e. HR>120, tremor, sweating, agitation, nausea)?: No Result: 0 Time Spent with Patient Time Spent with Patient: >50 minutes Time was spent: preparing to see the patient(eg.review tests), obtaining and/or reviewing separately otained hiistory, referring, communicating with other health patient care technician, indepentently interpreting results, counseling the patient and care coordination
--- NOTE | 2023-05-18 14:08 | NUR.NOTE ---
Addendum entered by Salome Lazaro 05/18/23 14:36: At approximately 1420 on 05/18/23, the air conditioning unit assembler received a call back from the person in radiology, who stated that they were unable to find the pt.'s partial dentures. Charge nurse notified of the situation. Original Note: Nursing Note: At approximately 1408 on 05/18/23, this RN call down to the radiology department and informed them that the pt. was missing her partial dentures, and that the pt. stated that they were removed when she was downstairs for some imaging yesterday evening, and that the partial dentures are nowhere to be found in the pt.'s room on Med/Surg. The person this RN spoke with in radiology stated that they would make a note of this and would attempt to find out where the pt.'s partial dentures were and would call if they were found.
[2023-05-18] MEDS: cefTAZidime 2,000 MG in Normal Saline 100 ML 200 MG IVPB (17:17)
[2023-05-18] MEDS: Enoxaparin 30 MG/0.3 ML SYR SC (17:17)
[2023-05-18 18:33] LABS: Legionella Ag Detection Urine Positive (Negative)
[2023-05-18] MEDS: AZITHROMYCIN 250 MG in Normal Saline 250 ML IVPB (21:08)
[2023-05-19] VITALS (8 sets, daily range): BP systolic 115–147; BP diastolic 62–75; PULSE 80–96; RESP 9–20; TEMP 36.5–39.4; O2SAT 79–96
--- NOTE | 2023-05-19 | DI.RAD_ITS ---
Exam(s) XR PORTABLE CHEST AP EXAM: XR PORTABLE CHEST AP CLINICAL HISTORY: worsening SOB, hypoxia. TECHNIQUE: 2D digital imaging was performed. COMPARISON: CR XR CHEST 2V PA LATERAL from 05/17/2023 FINDINGS: Single AP portable view. Heart size is upper normal. The mediastinum is not widened. There is no radiographic improvement in the extensive bilateral infiltrates, again noted be more prom inent on the left side increasing in size in the right upper lobe region. Also right middle lobe. N o obvious pleural effusions. No pneumothorax. IMPRESSION: Persistent and slightly worsening bilateral lung infiltrates. No obvious pleural effusions. DATA REPOSITORY: RADIATION DOSE DELIVERED:
[2023-05-19] MEDS: Acetaminophen 500 MG TAB 1000 MG PO ×2 (03:27→15:18)
[2023-05-19 05:43] LABS: C Diff PCR Negative (Negative)
[2023-05-19 06:28] LABS: HCT 27.9 % (36.0-46.0); HGB 9.4 g/dL (11.2-15.7); MCH 29.6 pg (27.0-33.0); MCHC 33.7 % (32.0-36.0); MCV 88 fL (80-95); Platelet Count 230 10^3/uL (130-400); RBC 3.18 10^6/uL (3.93-5.22); RDW 12.9 % (11.7-14.6); RDW-SD 41.5 fL; WBC 15.98 10^3/uL (4.4-10.8)
[2023-05-19] MEDS: Metoprolol CR 25 MG TABCR 75 MG PO (08:14)
[2023-05-19] MEDS: Famotidine 20 MG TAB PO (08:15)
[2023-05-19] MEDS: Atorvastatin 40 MG TAB PO (08:15)
[2023-05-19] MEDS: Losartan 50 MG TAB 100 MG PO (08:15)
[2023-05-19] MEDS: Albuterol/Ipratropium 3 ML UPD VIAL UPD (10:00)
--- NOTE | 2023-05-19 10:24 | RESPIRATORY ---
RT Assessment Start: 05/17/23 21:07 Freq: .q shift and prn Status: Active Protocol: Document 05/19/23 10:22 [email or web address] (Rec: 05/19/23 10:24 [id number]) RT Assessment Pulmonary History Pulmonary History Asthma Smoking History Smoking/Tobacco Use Status Never OXYGEN HISTORY: CPAP Settings N/A BIPAP Settings N/A Trilogy/AVAPS Settings N/A DME/Compliance DME N/A Current Respiratory Symptoms Current Respiratory Symptoms Cough Activity Activity Level Usually very active, kayaks 3x per week, and walked alot Respiratory Breath Sounds Breath Sounds Any abnormal sounds, decreased breath sounds Response No change Pulse Rate <100 Respiratory Rate <18 Shortness of Breath None Respiratory Therapy Score Total 1 Assessment and Plan RT Treatment Protocol No RT treatment protocols required at this time, re- consult if change Note Continue to encourage IS & Acapella use. Scheduled DuoNebs no longer indicated at this time (changed to PRN by RT based off assessment)
--- NOTE | 2023-05-19 11:49 | CHAPLAIN ---
Jenifer was sitting up in the chair when I visited. She was very pleasant and easily engaged in a conversation. She seemed to have a hard time coming up with some words during our conversation. She told me that she lives in a historic-looking building, just down the road from here. I asked if she lived at the [facility], but she said that wasn't it. Jenifer said her daughter lives next door to this building and another daughter lives in [place] so everyone is in [place]. According to Care Management notes, Jenifer lives in the [facility], her daughter from [place] is very supportive and she is estranged from the daughter in [place]. Jenifer said she is here for a respiratory infection that is caused by a virus, but you can't catch it. She asked me if I know Isaias Machuca. He is the travel insurance agent of the [place] [employer]. Jenifer said they text each other often and she will let him know that she is here.
--- NOTE | 2023-05-19 11:53 | PT.INIE ---
PT Notes Visit Reasons: Pneumonia Physical Therapy Inpatient Initial Evaluation Date: 05/19/2023 Referring Doctor: Keo Najera MD PT Orders: PT CONSULT: Eval/Treat Precautions: Fall. Standard. Activity as tolerated. Patient Profile/Admitting Diagnosis: Jenifer is a 77-year-old female admitted for management of severe sepsis, pneumonia, acute hypoxemic respiratory failure, hyperlipidemia, and essential hypertension. PMHX: All Active Problems Pneumonia (Acute) Sepsis (Acute) Acute hypoxemic respiratory failure (Acute) Fever (Acute) Acute pyelonephritis (Acute) Splinter of finger (Acute) Tachycardia (Acute) 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) Optic nerve swelling (Acute) Decreased hearing of both ears (Acute) Change in mole (Acute) Atrophy of vagina (Acute) Lumbar arthropathy (Acute) Insomnia (Acute) Acute bilateral low back pain (Acute) Foot pain (Acute) Shoulder pain, right (Acute) Abnormal renal function (Chronic 09/14/13) Anxiety (Chronic) Depressive disorder (Chronic) Essential hypertension (Chronic) GERD (gastroesophageal reflux disease) (Chronic 04/17/14) Hiatal hernia (Chronic) Hyperlipidemia (Chronic 02/14/13) Osteopenia (Chronic) T-scores of -1.3 Medical History Bruit Carpal tunnel syndrome of right wrist (11/15/13) Corneal abrasion (05/20/00) Papanicolaou smear of vagina with atypical squamous cells of undetermined significance (ASC-US) (05/20/03) Polyp of corpus uteri Diabetes mellitus Right carotid bruit Corneal abrasion, left 05/20/00 Pap smear vag w ASC-US 05/20/03 neg. high risk HPV Abdominal pain Acquired trigger finger multiple fingers affected Cataract (02/15/14) Asthma GERD (gastroesophageal reflux disease) HTN (hypertension) Hypercholesterolemia Surgical History History of eye surgery Status post carpal tunnel release S/P carpal tunnel release H/O eye surgery 06/21/00 leftS/P tubal ligation Open Carpal Tunnel release 01/23/14; RIGHT EYE SURGERY 2000- Social History/Home Situation: Lives alone in an apartment building independent with all aspects of ADLs with no assistive devices prior to admission. Has daughters who check in on her as needed. Equipment Owned/DME: 4WW Subjective: Complained of being shaky and unstable when PT attempted to stand her up without an assistive device, felt better with use of 4-wheeled walker. Added that her has a 4 wheeled walker that she can use at home. Denies lightheadedness, chest pain, and dizziness throughout session. Reported that her symptoms began as she was preparing a used dinner for her family. Objective: General Observation: Sitting on bedside chair. Telemetry monitoring in place. Friend present in room when PT arrived. Oxygen supplementation via NC now removed. Mental Status: Alert and oriented as to person and purpose. Able to pay attention, focus, and respond appropriately. Pain: Denies Vital Signs: Within normal limits is closely monitored by nursing staff ROM: Right Upper Extremity: Shoulder Flexion WFL. Shoulder abduction WFL. Elbow flexion WFL. Wrist flexion WFL. Functional opening and closing of hand WFL. Left Upper Extremity: Shoulder Flexion WFL. Shoulder abduction WFL. Elbow flexion WFL. Wrist flexion WFL. Functional opening and closing of hand WFL. Right Lower Extremity: Hip flexion WFL. Hip abduction WFL. Knee flexion WFL. Ankle dorsiflexion WFL. Ankle plantarflexion WFL. Left Lower Extremity: Hip flexion WFL. Hip abduction WFL. Knee flexion WFL. Ankle dorsiflexion WFL. Ankle plantarflexion WFL. Strength: Right Upper Extremity: Shoulder flexors 4/5. Shoulder abductors 4/5. Elbow flexors 4/5. Elbow extensors 4/5. Communications Representative strong. Left Upper Extremity: Shoulder flexors 4/5. Shoulder abductors 4/5. Elbow flexors 4/5. Elbow extensors 4/5. Communications Representative strong. Right Lower Extremity: Hip flexors 4/5. Hip abductors 4/5. Knee flexors 5/5. Knee extensors 4/5. Ankle dorsiflexors 4/5. Ankle plantarflexors 4/5. Left Lower Extremity: Hip flexors 4/5. Hip abductors 4/5. Knee flexors 5/5. Knee extensors 4/5. Ankle dorsiflexors 4/5. Ankle plantarflexors 4/5. Bed Mobility/Transfers: Minimal cues provided for safety and for AD use Sit to stand contact guard assist with 4WW Stand to sit contact guard assist with 4WW Bed to reclining chair contact guard assist with 4WW Reclining chair to bed contact guard assist with 4WW Gait: Provided hand-held assist with minimal verbal cueing for safety, directions, and activity pacing during level surface ambulation for 100 feet with increased posterior and lateral sway to the right noted. Use of 4 wheeled walker going back to patient's room for a distance of about 100 feet diminished posterior and lateral sway significantly and patient reported improved stability. Balance: Static Sitting: Normal Dynamic Sitting: Normal Static Standing: Good Dynamic Standing: Fair Special Tests: Mobility Limitations Standardized Measure [facility] clicks Basic Mobility Inpatient Short Form: Raw Score: 22 CMS Score: 21% deficit 30-second chair rise score: 5x Informed Consent/Education: Patient was instructed in purpose of PT consult and plan of care. Agreeable to proceed with established PT POC to achieve personal goals. ASSESSMENT: Acutely confused, not at baseline cognitive level per friends who were in the room. Requires the use of 4WW for improved stability. Patient presents with clinical signs and symptoms consistent with current/admitting diagnoses that have resulted to mobility limitations, gait instability, generalized weakness, and overall ADL decline as demonstrated by the following impairment level findings: 1. Decreased strength to B UE/LE major muscle groups 2. Impaired sitting/standing balance 3. Impaired activity tolerance 5. Minimal shortness of breath that resolved with rest Impairments are contributing to the following functional limitations: 1. Difficulty with ambulation without assistive device and physical assistance 2. Increased completion time for mobility ADL performance 3. Increased risk for falls Patient is assessed as a [id number] moderate complexity based on the following: History: 77-year-old female with past medical history as indicated above Examination: Demonstrable impairment in strength, balance, and mobility level with underlying impairments and functional limitations as exhibited above as well as deficit score of 21% utilizing the [facility] Mobility Inpatient Short Form Presentation: Evolving Decision Makin moderate complexity Goals: Goals X1 week 1. Supine-Sit independent 2. Sit-Supine independent 3. Sit-Stand independent 4. Stand-Sit independent with 4WW 5. Bed-Chair independent with 4WW 6. Chair-Bed independent with 4WW 7. Independent gait on level surface with use of 4WW for at least 300 feet without report of pain nor dyspnea 8. Good static and dynamic standing balance/tolerance Plan of Care/Treatment Plan: 1-2x/day, 7 days/week x 1 week. Plan of care has been reviewed with the BRIQUETTE MACHINE OPERATOR providing the service under Physical Therapy direction. Initiate Physical Therapy intervention for pain management as needed, strengthening, bed mobility, transfers, gait, stairs, balance training, and use of assistive device. DISCHARGE RECOMMENDATIONS: [] Home with no services [] [X] Home with services. Patient will benefit from home health PT services in order to progress mobility level using least restrictive assistive ambulatory device, assess home safety, identify additional equipment needs, and establish a functional maintenance program that will increase ability of patient to remain at home. [] Home with outpatient PT [] [] SNF for continued rehabilitation [] [] [facility] Care [] [] SNF versus LTC based on ability to participate and progress [] TREATMENT CODE/TIME: 28948 x 22 minutes for 1 unit beginning at 11:53 AM. Thank you for the opportunity to participate in the care of this patient. Nellie Plasencia PT, DPT, CLT [facility] [place], [place]
[2023-05-19 13:15] LABS: ALT 112 U/L (14-59); AST 132 U/L (15-37); Albumin 2.5 g/dL (3.4-5.0); Alkaline Phosphatase 101 U/L (46-116); Anion Gap 11.5 mmol/L (3-11); BUN 34 mg/dL (7-18); Bilirubin, Total 0.6 mg/dL (0.2-1.0); CO2 21.5 mmol/L (21.0-32.0); CREATININE 1.5 mg/dL (0.55-1.02); Calcium 9.8 mg/dL (8.5-10.1); Chloride 99 mmol/L (98-107); Estimated GFR 36.12 (mL/min/1.73m2); Glucose 150 mg/dL (74-106); Potassium 3.7 mmol/L (3.5-5.1); Sodium 132 mmol/L (136-145)
[2023-05-19 13:40] LABS: BE (Venous) -2 mmol/L (-2-3); HCO3 (Venous) 23 mmol/L (23-28); O2 Sat (Venous) 40 %; TCO2 (Venous) 22 mmol/L (24-29); pCO2 (Venous) 43 mmHg (41-51); pH (Venous) 7.34 (7.31-7.41); pO2 (Venous) 25 mmHg
--- NOTE | 2023-05-19 14:06 | W.PM.PROGNOT ---
Date of Service Date of service: 05/19/23 Time of Service: 14:06 Assessment and Plan Assessment and plan (1) Severe sepsis: Status: Acute Assessment and plan: - Patient is severe sepsis criteria admission with a temperature of 104.1, heart rate of 120, white blood cell count of 13, and a lactic acid of 2.3 with source of infection being left upper lobe pneumonia -Repeat lactic acid was within normal limits -Was initially treated with Vanco and ceftazidime -Currently on ceftazidime and azithromycin which will be continued for total 5-day therapy -Follow-up a.m. CBC, blood cultures (2) Pneumonia: Status: Acute Assessment and plan: - As noted above Qualifiers: Pneumonia type: due to unspecified organism Laterality: left Lung location: upper lobe of lung Qualified Code(s): J18.9 - Pneumonia, unspecified organism (3) Acute hypoxemic respiratory failure: Status: Acute Assessment and plan: - Secondary to severe sepsis and treated acquired pneumonia as noted above -Required up to 4 L nasal cannula of supplemental oxygen -Currently on room air, though did require oxygen overnight -We will continue to monitor our need for supplemental oxygen overnight and plan to discharge if she does not require any (4) Hyperlipidemia: Status: Chronic Assessment and plan: - Continue home statin therapy (5) Essential hypertension: Status: Chronic Assessment and plan: - Continue home losartan, Toprol-XL (6) Delirium: Status: Acute Assessment and plan: As noted above, and appears to be suffering from delirium with waxing and waning altered mental status. She is redirectable, and did have significant improvement of her mental status shortly after arrival of her daughter -Will continue delirium prevention such as frequent orienting of the patient, ambulating in her room, and ensuring that she gets a good night sleep Subjective Subjective Interval history since last seen: Patient states that she is doing well this morning. However, she appears delirious as she stated multiple times that she was at home, but she is not really directable. Additionally, she appeared more confused after initially seeing her without this significantly proved after the patient's daughter arrived. It was also explained to the patient's daughter that given her rapid improvement upon her arrival she is likely suffering from delirium, to which patient's daughter expressed understanding. Exam Narrative Exam Narrative: Well-appearing older female lying in bed in no acute distress, oriented to person, intermittently oriented to place and situation though she does sometimes state that she has at home, heart regular rate and rhythm, lungs with coarse breath sounds in the left upper lobe otherwise clear to auscultation Objective Last Vital Signs Temp 97.7 F 05/19/23 07:30 Pulse 80 05/19/23 10:00 Resp 20 05/19/23 10:00 BP 115/67 05/19/23 07:30 Pulse Ox 96 05/19/23 10:00 Laboratory Results - last 24 hr 05/19/23 05/19/23 05/19/23 03:15 06:05 12:55 WBC 15.98 H RBC 3.18 L Hgb 9.4 L Hct 27.9 L MCV 88 MCH 29.6 MCHC 33.7 RDW 12.9 Plt Count 230 MPV 12.0 H VBG pH VBG pCO2 VBG pO2 VBG HCO3 VBG Total CO2 VBG O2 Saturation VBG Base Excess Sodium 132 L Potassium 3.7 Chloride 99 Carbon Dioxide 21.5 Anion Gap 11.5 H BUN 34 H Creatinine 1.5 H Est GFR (CKD-EPI 2020) 36.12 Glucose 150 H Calcium 9.8 Total Bilirubin 0.6 AST 132 H ALT 112 H Alkaline Phosphatase 101 Total Protein 7.0 Albumin 2.5 L Stl C.difficile Tox PCR Negative 05/19/23 13:32 WBC RBC Hgb Hct MCV MCH MCHC RDW Plt Count MPV VBG pH 7.34 VBG pCO2 43 VBG pO2 25 VBG HCO3 23 VBG Total CO2 22 L VBG O2 Saturation 40 VBG Base Excess -2 Sodium Potassium Chloride Carbon Dioxide Anion Gap BUN Creatinine Est GFR (CKD-EPI 2020) Glucose Calcium Total Bilirubin AST ALT Alkaline Phosphatase Total Protein Albumin Stl C.difficile Tox PCR PAWSS Have you Been Recently Intoxicated or Drunk Within the Last 30 days?: No Have you Ever Experienced Previous Episodes of Alcohol Withdrawal?: No Have you ever Experienced Withdrawal Seizures?: No Have you ever Experienced Delirium Tremens(DT)s?: No Have you ever undergone Alcohol Rehabilitation Treatment (i.e, inpt ot outpatient treatment programs)?: No Have you ever Experienced Blackouts?: No Have you ever Combined Alcohol with other Downers within the last 90 days?: No Have you ever Combined Alcohol with any other Substance of Abuse during the last 90 days?: No Positive Blood Alcohol level on Presentation? [PCS.BAL]: No Evidence of Increased Autonomic Activity (i.e. HR>120, tremor, sweating, agitation, nausea)?: No Result: 0 Time Spent with Patient Time Spent with Patient: >50 minutes Time was spent: preparing to see the patient(eg.review tests), obtaining and/or reviewing separately otained hiistory, referring, communicating with other health career development engineer, indepentently interpreting results, counseling the patient and care coordination
[2023-05-19 14:19] LABS: Ammonia < 10 umol/L (11-32)
--- NOTE | 2023-05-19 15:37 | CMPROGNOTE_ITS ---
Date of service: 05/19/23 Time of Service: 15:37 Care Management Progress Note Progress Note Text Progress Note Text: S/O:Jenifer was sitting up in bed when CM met with her. She was visiting with her intelligent systems engineer and some family members at the time. Jenifer has been quite confused at times today. She has indicated that she is not sure where she is and thought she had driven herself to the hospital. Her intelligent systems engineer Isaias informed CM that this is definitely not her baseline. Jenifer has pneumonia and has been hypoxic at times during the day. She was also febrile at 1500 with a temperature of 39.4C with an oxygen saturation level of 79% on room air. Per provider, her delirium is likely related to her sepsis. A: Jenifer is a 77 year old woman admitted on 05/17/23 with pneumonia P:Jenifer will likely be discharged home with no new services. She will follow up with her PCP and plan of care and transport with friend/family. CM will follow and continue to assess for discharge needs.
[2023-05-19 16:10] LABS: PTT Activated 28.7 sec (23.6-32.8)
[2023-05-19] MEDS: Heparin in 0.45% NaCl 25,000 UNIT/250 ML BAG 10 UNIT IV (16:57)
[2023-05-19] MEDS: cefTAZidime 2,000 MG in Normal Saline 100 ML 200 MG IVPB (18:05)
[2023-05-19] MEDS: clonazePAM 0.5 MG TAB PO (20:33)
[2023-05-19] MEDS: AZITHROMYCIN 250 MG in Normal Saline 250 ML IVPB (20:45)
[2023-05-19 21:16] LABS: Lab Add On Test DONE
[2023-05-19 23:56] LABS: PTT Activated > 155.0 sec (23.6-32.8)
[2023-05-20] VITALS (17 sets, daily range): BP systolic 123–176; BP diastolic 70–80; PULSE 90–116; RESP 2–20; TEMP 37–39.3; O2SAT 88–96
[2023-05-20] MEDS: ACETAMINOPHEN 1,000 MG/100 ML BTL 400 MG IVPB (00:28)
[2023-05-20] MEDS: Albuterol/Ipratropium 3 ML UPD VIAL UPD ×3 (02:09→21:53)
[2023-05-20 07:07] LABS: HCT 29.7 % (36.0-46.0); MCH 29.7 pg (27.0-33.0); MCHC 33.7 % (32.0-36.0); MCV 88 fL (80-95); MPV 11.3 fL (8.0-11.0); Platelet Count 270 10^3/uL (130-400); RBC 3.37 10^6/uL (3.93-5.22); RDW 13.1 % (11.7-14.6); RDW-SD 42.6 fL; WBC 14.48 10^3/uL (4.4-10.8)
[2023-05-20 07:28] LABS: Sodium 134 mmol/L (136-145)
[2023-05-20 07:41] LABS: PTT Activated 143.5 sec (23.6-32.8)
[2023-05-20 07:42] LABS: ALT 113 U/L (14-59); AST 137 U/L (15-37); Albumin 2.1 g/dL (3.4-5.0); Alkaline Phosphatase 91 U/L (46-116); Anion Gap 8.1 mmol/L (3-11); BUN 29 mg/dL (7-18); Bilirubin, Total 0.5 mg/dL (0.2-1.0); CO2 24.9 mmol/L (21.0-32.0); CREATININE 1.5 mg/dL (0.55-1.02); Calcium 8.9 mg/dL (8.5-10.1); Chloride 101 mmol/L (98-107); Estimated GFR 36.12 (mL/min/1.73m2); Glucose 95 mg/dL (74-106); Potassium 3.6 mmol/L (3.5-5.1); Total Protein 5.6 g/dL (6.4-8.2)
[2023-05-20] MEDS: Atorvastatin 40 MG TAB PO (07:49)
[2023-05-20] MEDS: Famotidine 20 MG TAB PO (07:49)
[2023-05-20] MEDS: Metoprolol CR 25 MG TABCR 75 MG PO (07:50)
[2023-05-20] MEDS: Losartan 50 MG TAB 100 MG PO (07:50)
[2023-05-20] MEDS: Acetaminophen 500 MG TAB 1000 MG PO ×3 (07:51→21:36)
[2023-05-20] MEDS: Normal Saline Flush 10 ML SYR IVP ×2 (08:53→09:47)
[2023-05-20] MEDS: Normal Saline - Diluent 50 ML VIAL IJ ×2 (08:54→09:03)
[2023-05-20] MEDS: Omnipaque 350 MG/ML 500 ML BTL-Imaging package 60 ML IJ (08:59)
--- NOTE | 2023-05-20 09:10 | DI.CT_ITS ---
Exam(s) CT CHEST PE CTA EXAM: CT CHEST PE CTA CLINICAL HISTORY: SOB, tachycardic, worsening hypoxia, on heparin. TECHNIQUE: Imaging Protocol: CT angiography of the chest was performed using pulmonary embolus shawn col. Multi planar reconstructions were performed. CONTRAST MATERIAL: Intravenous: Omnipaque 350 Contrast volume: 100 cc COMPARISON: CT CT ABDOMEN PELVIS W from 05/15/2023 CR XR PORTABLE CHEST AP from 05/19/2023 FINDINGS: CHEST: PULMONARY ARTERIES: There are no intraluminal filling defects to suggest acute pulmonary emboli. LUNGS: There are extensive bilateral confluent infiltrates predominantly involving both upper lobes. There is presently no cavitation. There are moderate size bilateral pleural effusions and volume lo ss in the basal segments of both lower lobes.. MEDIASTINUM: There is no hilar nor mediastinal adenopathy. Visualized thyroid unremarkable. CARDIAC: Heart size is upper normal. There is no pericardial effusion.Caliber of the thoracic aorta is within normal limits. There is no significant shift of the interventricular septum. PARTIALLY VISUALIZED UPPERMOST ABDOMEN: Tiny amount of perihepatic ascites noted. There is also some abnormal density-probable fluid on the left side adjacent to the left psoas muscle, only partially i ncluded in the field of view of this chest CT scan. Cannot exclude retroperitoneal hemorrhage at thi s level. OSSEOUS: No significant osseous lesions.There are no fractures.. IMPRESSION: 1. Extensive bilateral confluent pulmonary infiltrates predominately involving the upper lobes.. No cavitation. There are moderate size non loculated bilateral pleural effusions evident. No obvious i ntrathoracic adenopathy. These findings were not evident on the uppermost images of an abdominal CT scan performed 05/15/2023. 2. No evidence of acute pulmonary emboli. 3. No evidence of aortic dissection nor pericardial effusion. RADIATION DOSE DELIVERED: Total DLP DATA REPOSITORY: All CT scans at this facility are submitted to the National Radiology Data Registry (NRDR) Dose Index Registry (DIR) with the [employer] (ACR). RADIATION OPTIMIZATION: All CT scans at this facility use at least one of these dose optimization te chniques: automated exposure control; mA and/or kV adjustment per patient size (includes targeted exa ms where dose is matched to clinical indication); or iterative reconstruction.
[2023-05-20] MEDS: levoFLOXacin 500 MG/100 ML BAG 100 MG IVPB (09:56)
--- NOTE | 2023-05-20 10:03 | PDOC.CMPRO ---
Date of service: 05/20/23 Time of Service: 10:03 Care Management Progress Note Progress Note Text Progress Note Text: S/O:Jenifer was lying in bed asleep when CM went to meet with her. Her friend was present and informed CM that Jenifer is still very confused today. She asked that she not be woken up at this time. Jenifer continues to have fevers as high as 39.3 and is hypoxic. She is on 4L/min of nasal oxygen and is only able to maintain her oxygen saturation levels in the high 80s to low 90s. Her urine for Legionella testing came back positive and her antibiotic has been changed to Levaquin. A: Jenifer is a 77 year old woman admitted on 05/17/23 with pneumonia P:Jenifer will likely be discharged home with no new services. She will follow up with her PCP and plan of care and transport with friend/family. CM will follow and continue to assess for discharge needs.
--- NOTE | 2023-05-20 10:54 | PTTR_ITS ---
Date of service: 05/20/23 Time of Service: 10:25 PT Notes Visit Reasons: Pneumonia Inpatient Physical Therapy Treatment Note [facility] Date: 05/20/23 PRECAUTIONS: Fall, standard, activity as tolerated. SUBJECTIVE: Patient reports feeling sleepy but otherwise great. Very eager to participate in therapy. Dr. Najera enters briefly at start of session to assess patient's orientation. Patient believes she is at home. OBJECTIVE: sidelying in bed, IV attached to each UE, receiving 4.5 L/min supplemental O2. Telemetry in place. SaO2 sensor taped to a finger on the right hand. Richard alarm in place and active. ? PAIN: yes, in back / hips. Patient reports it to be arthritis. VITALS: closely monitored by nursing staff via telemetry, continuous SaO2 monitor. ? ? BED MOBILITY/TRANSFERS? Rolling L/R: independent Supine-sit: SBA? Sit-supine: SBA ? Sit-stand: SBA? Stand-sit: SBA ? Bed-Chair: CGA ? Chair-bed: [facility] Gait Training ([id number]): Direct one-on-one instruction and skilled instruction in: [x] employing an assistive device [] modified weight-bearing status [] movement sequencing [x] turning and movement with proper form [x] Provided verbal cues for equipment management and technique [] Provided instruction in gait pattern [] Patient education regarding pacing and breathing techniques to maximize activity tolerance? GAIT? Assistive Device: 4WW? Weight bearing: full Assist: SBA, wheelchair follow, assist managing O2 and IV lines? Distance:? 200 feet, 10 feet, 5 feet, 8 feet - short stops and starts with hard turns to test patient's ability to maneuver her AD. LOB noted x2, with patient requiring assist to recover x1. ? Deviation: Gait largely unremarkable unless patient is trying to turn sharply, in which case she becomes unsteady. ? ASSESSMENT:? Patient tolerates therapy well, has a visitor arrive right at the end of treatment session. PLAN: Continue global strengthening, balance training per plan of care until patient is medically ready for discharge. TREATMENT CODE/TIME: 28 minutes beginning at 10:25
--- NOTE | 2023-05-20 11:23 | PGE_ITS ---
Date of Service Date of service: 05/20/23 Time of Service: 11:24 Assessment and Plan Assessment and plan (1) Severe sepsis: Status: Acute Assessment and plan: - Patient is severe sepsis criteria admission with a temperature of 104.1, heart rate of 120, white blood cell count of 13, and a lactic acid of 2.3 with source of infection being left upper lobe pneumonia -Repeat lactic acid was within normal limits -Was initially treated with Vanco and ceftazidime -had been on ceftazidime and azithromycin -However, urine Legionella antigen positive, has since been switched to Levaquin -Follow-up a.m. CBC, blood cultures (2) Pneumonia: Status: Acute Assessment and plan: - As noted above Qualifiers: Pneumonia type: due to unspecified organism Laterality: left Lung location: upper lobe of lung Qualified Code(s): J18.9 - Pneumonia, unspecified organism (3) Acute hypoxemic respiratory failure: Status: Acute Assessment and plan: - Secondary to severe sepsis and treated acquired pneumonia as noted above -Required up to 4 L nasal cannula of supplemental oxygen -currently on 1L NC -We will continue to monitor our need for supplemental oxygen overnight and plan to discharge if she does not require any (4) Hyperlipidemia: Status: Chronic Assessment and plan: - Continue home statin therapy (5) Essential hypertension: Status: Chronic Assessment and plan: - Continue home losartan, Toprol-XL (6) Delirium: Status: Acute Assessment and plan: As noted above, and appears to be suffering from delirium with waxing and waning altered mental status. She is redirectable, and did have significant improvement of her mental status shortly after arrival of her daughter -Will continue delirium prevention such as frequent orienting of the patient, ambulating in her room, and ensuring that she gets a good night sleep Subjective Subjective Interval history since last seen: Patient seen this morning is more awake and alert as compared to yesterday. She is still intermittently confused but is very easily redirectable. She was brought to work physical therapy, understanding and was actually very excited to begin ambulating with them. Exam Narrative Exam Narrative: Well-appearing older female lying in bed in no acute distress, oriented to person, intermittently oriented to place and situation though she does sometimes state that she has at home, heart regular rate and rhythm, lungs with coarse breath sounds in the left upper lobe otherwise clear to auscultation Objective Last Vital Signs Temp 99.0 F 05/20/23 11:01 Pulse 101 H 05/20/23 11:01 Resp 20 05/20/23 11:01 BP 135/77 05/20/23 11:01 Pulse Ox 88 L 05/20/23 07:53 Laboratory Results - last 24 hr 05/17/23 05/19/23 05/19/23 19:09 12:45 12:55 WBC RBC Hgb Hct MCV MCH MCHC RDW Plt Count MPV APTT VBG pH VBG pCO2 VBG pO2 VBG HCO3 VBG Total CO2 VBG O2 Saturation VBG Base Excess Sodium 132 L Potassium 3.7 Chloride 99 Carbon Dioxide 21.5 Anion Gap 11.5 H BUN 34 H Creatinine 1.5 H Est GFR (CKD-EPI 2020) 36.12 Glucose 150 H Calcium 9.8 Total Bilirubin 0.6 AST 132 H ALT 112 H Alkaline Phosphatase 101 Ammonia < 10 L Total Protein 7.0 Albumin 2.5 L Urine Legionella Ag Positive A Add-On Test Request DONE 05/19/23 05/19/23 05/19/23 13:32 15:31 23:03 WBC RBC Hgb Hct MCV MCH MCHC RDW Plt Count MPV APTT 28.7 > 155.0 H* VBG pH 7.34 VBG pCO2 43 VBG pO2 25 VBG HCO3 23 VBG Total CO2 22 L VBG O2 Saturation 40 VBG Base Excess -2 Sodium Potassium Chloride Carbon Dioxide Anion Gap BUN Creatinine Est GFR (CKD-EPI 2020) Glucose Calcium Total Bilirubin AST ALT Alkaline Phosphatase Ammonia Total Protein Albumin Urine Legionella Ag Add-On Test Request 05/20/23 05/20/23 05/20/23 05:35 06:58 15:30 WBC 14.48 H RBC 3.37 L Hgb 10.0 L Hct 29.7 L MCV 88 MCH 29.7 MCHC 33.7 RDW 13.1 Plt Count 270 MPV 11.3 H APTT Cancelled 143.5 H* Cancelled VBG pH VBG pCO2 VBG pO2 VBG HCO3 VBG Total CO2 VBG O2 Saturation VBG Base Excess Sodium 134 L Potassium 3.6 Chloride 101 Carbon Dioxide 24.9 Anion Gap 8.1 BUN 29 H Creatinine 1.5 H Est GFR (CKD-EPI 2020) 36.12 Glucose 95 Calcium 8.9 Total Bilirubin 0.5 AST 137 H ALT 113 H Alkaline Phosphatase 91 Ammonia Total Protein 5.6 L Albumin 2.1 L Urine Legionella Ag Add-On Test Request PAWSS Have you Been Recently Intoxicated or Drunk Within the Last 30 days?: No Have you Ever Experienced Previous Episodes of Alcohol Withdrawal?: No Have you ever Experienced Withdrawal Seizures?: No Have you ever Experienced Delirium Tremens(DT)s?: No Have you ever undergone Alcohol Rehabilitation Treatment (i.e, inpt ot outpatient treatment programs)?: No Have you ever Experienced Blackouts?: No Have you ever Combined Alcohol with other Downers within the last 90 days?: No Have you ever Combined Alcohol with any other Substance of Abuse during the last 90 days?: No Positive Blood Alcohol level on Presentation? [PCS.BAL]: No Evidence of Increased Autonomic Activity (i.e. HR>120, tremor, sweating, agitation, nausea)?: No Result: 0 Time Spent with Patient Time Spent with Patient: >50 minutes Time was spent: preparing to see the patient(eg.review tests), obtaining and/or reviewing separately otained hiistory, ordering medications,tests, procedures, referring, communicating with other health child care education coordinator, indepentently interpreting results, counseling the patient and care coordination
[2023-05-20] MEDS: Enoxaparin 30 MG/0.3 ML SYR SC (15:32)
[2023-05-20 17:51] LABS: Bilirubin Negative (Negative); Blood Moderate (Negative); Clarity Clear (Clear); Glucose Negative (Negative); Ketones Negative (Negative); Leukocyte Esterase Negative (Negative); Nitrite Negative (Negative); Urobilinogen 0.2 mg/dL (Up to 0.2); pH 5.5 (5-8)
[2023-05-20 18:02] LABS: Bacteria Negative HPF (Negative); C & S Indicated? No; Casts 0-2 Coarse Granular LPF (Negative); Crystals Negative HPF (Negative); Epithelial Cells Rare HPF (Negative); Mucus Moderate (Negative); WBC 0-2 HPF (0-5)
[2023-05-20] MEDS: clonazePAM 0.5 MG TAB PO (21:35)
[2023-05-20] MEDS: guaiFENesin 600 MG TABCR PO (21:36)
[2023-05-21] VITALS (9 sets, daily range): BP systolic 115–170; BP diastolic 71–78; PULSE 89–111; RESP 16–20; TEMP 36–38.5; O2SAT 90–98
[2023-05-21 06:33] LABS: HCT 21.6 % (36.0-46.0); MCH 30.5 pg (27.0-33.0); MCHC 34.7 % (32.0-36.0); MCV 88 fL (80-95); MPV 11.3 fL (8.0-11.0); Platelet Count 236 10^3/uL (130-400); RBC 2.46 10^6/uL (3.93-5.22); RDW 13.2 % (11.7-14.6); RDW-SD 42.2 fL; WBC 13.78 10^3/uL (4.4-10.8)
[2023-05-21 06:58] LABS: Anion Gap 9.5 mmol/L (3-11); BUN 24 mg/dL (7-18); CO2 25.5 mmol/L (21.0-32.0); CREATININE 1.2 mg/dL (0.55-1.02); Calcium 8.6 mg/dL (8.5-10.1); Chloride 100 mmol/L (98-107); Estimated GFR 47.21 (mL/min/1.73m2); Glucose 86 mg/dL (74-106); Potassium 3.4 mmol/L (3.5-5.1); Sodium 135 mmol/L (136-145)
[2023-05-21 07:29] LABS: HGB 7.5 g/dL (11.2-15.7)
[2023-05-21] MEDS: Famotidine 20 MG TAB PO (08:47)
[2023-05-21] MEDS: Losartan 50 MG TAB 100 MG PO (08:48)
[2023-05-21] MEDS: Atorvastatin 40 MG TAB PO (08:48)
[2023-05-21] MEDS: guaiFENesin 600 MG TABCR PO ×2 (08:49→20:08)
[2023-05-21] MEDS: Metoprolol CR 25 MG TABCR 75 MG PO (08:49)
[2023-05-21] MEDS: Normal Saline Flush 10 ML SYR IVP (08:56)
--- NOTE | 2023-05-21 10:22 | PDOC.CMPRO ---
Date of service: 05/21/23 Time of Service: 10:22 Care Management Progress Note Progress Note Text Progress Note Text: S/O:Jenifer is showing some slow improvement. She is still confused but more alert than she has been. Her oxygen saturation levels have improved and her oxygen requirements have decreased throughout the day from 4.5L/min to 2L/min with an O2 saturation level of 95%. Jenifer is still febrile with temperatures around 38-38.5C and continues to be treated for Legionnaire's Disease. A: Jenifer is a 77 year old woman admitted on 05/17/23 with pneumonia P:Jenifer will likely be discharged home with no new services. She will follow up with her PCP and plan of care and transport with friend/family. CM will follow and continue to assess for discharge needs.
--- NOTE | 2023-05-21 11:20 | PGE_ITS ---
Date of Service Date of service: 05/21/23 Time of Service: 11:22 Assessment and Plan Assessment and plan (1) Severe sepsis: Status: Acute Assessment and plan: - Patient is severe sepsis criteria admission with a temperature of 104.1, heart rate of 120, white blood cell count of 13, and a lactic acid of 2.3 with source of infection being left upper lobe pneumonia -Repeat lactic acid was within normal limits -Was initially treated with Vanco and ceftazidime -had been on ceftazidime and azithromycin -However, urine Legionella antigen positive, has since been switched to Le vaquin, now day 2 -Follow-up a.m. CBC, blood cultures (2) Pneumonia: Status: Acute Assessment and plan: - As noted above Qualifiers: Pneumonia type: due to unspecified organism Laterality: left Lung location: upper lobe of lung Qualified Code(s): J18.9 - Pneumonia, unspecified organism (3) Acute hypoxemic respiratory failure: Status: Acute Assessment and plan: - Secondary to severe sepsis and treated acquired pneumonia as noted above -Required up to 4 L nasal cannula of supplemental oxygen -currently on 2L NC (4) Hyperlipidemia: Status: Chronic Assessment and plan: - Continue home statin therapy (5) Essential hypertension: Status: Chronic Assessment and plan: - Continue home losartan, Toprol-XL (6) Delirium: Status: Acute Assessment and plan: As noted above, and appears to be suffering from delirium with waxing and waning altered mental status. She is redirectable, and did have significant improvement of her mental status shortly after arrival of her daughter -Will continue delirium prevention such as frequent orienting of the patient, ambulating in her room, and ensuring that she gets a good night sleep Subjective Subjective Interval history since last seen: Patient remains somewhat confused but is definitely more alert as compared to previous days. She has no complaints or concerns at this time. Exam Narrative Exam Narrative: Well-appearing older female lying in bed in no acute distress, oriented to person, intermittently oriented to place and situation though she does sometimes state that she has at home, heart regular rate and rhythm, lungs with coarse breath sounds in the left upper lobe otherwise clear to auscultation Objective Last Vital Signs Temp 99.5 F 05/21/23 08:17 Pulse 111 H 05/21/23 08:17 Resp 16 05/21/23 08:17 BP 170/77 H 05/21/23 08:17 Pulse Ox 97 05/21/23 04:08 Laboratory Results - last 24 hr 05/20/23 05/21/23 17:40 06:17 WBC 13.78 H RBC 2.46 L Hgb 7.5 L D Hct 21.6 L MCV 88 MCH 30.5 MCHC 34.7 RDW 13.2 Plt Count 236 MPV 11.3 H Sodium 135 L Potassium 3.4 L Chloride 100 Carbon Dioxide 25.5 Anion Gap 9.5 BUN 24 H Creatinine 1.2 H Est GFR (CKD-EPI 2020) 47.21 Glucose 86 Calcium 8.6 Urine Color Yellow Urine Clarity Clear Urine pH 5.5 Ur Specific [place] 1.020 Urine Protein 100 H Urine Ketones Negative Urine Blood Moderate H Urine Nitrite Negative Urine Bilirubin Negative Urine Urobilinogen 0.2 Ur Leukocyte Esterase Negative Urine RBC 5-10 H Urine WBC 0-2 Ur Epithelial Cells Rare Urine Crystals Negative Urine Bacteria Negative Urine Casts 0-2 Coarse Granular Urine Mucus Moderate Ur Culture Indicated? No Urine Glucose Negative PAWSS Have you Been Recently Intoxicated or Drunk Within the Last 30 days?: No Have you Ever Experienced Previous Episodes of Alcohol Withdrawal?: No Have you ever Experienced Withdrawal Seizures?: No Have you ever Experienced Delirium Tremens(DT)s?: No Have you ever undergone Alcohol Rehabilitation Treatment (i.e, inpt ot outpatient treatment programs)?: No Have you ever Experienced Blackouts?: No Have you ever Combined Alcohol with other Downers within the last 90 days?: No Have you ever Combined Alcohol with any other Substance of Abuse during the last 90 days?: No Positive Blood Alcohol level on Presentation? [PCS.BAL]: No Evidence of Increased Autonomic Activity (i.e. HR>120, tremor, sweating, agitation, nausea)?: No Result: 0 Time Spent with Patient Time Spent with Patient: >50 minutes Time was spent: preparing to see the patient(eg.review tests), obtaining and/or reviewing separately otained hiistory, ordering medications,tests, procedures, referring, communicating with other health intensive care unit registered nurse, indepentently interpreting results, counseling the patient and care coordination
[2023-05-21 12:02] LABS: HCT 22.4 % (36.0-46.0); HGB 7.6 g/dL (11.2-15.7)
[2023-05-21] MEDS: Acetaminophen 500 MG TAB 1000 MG PO ×2 (13:55→20:08)
--- NOTE | 2023-05-21 15:48 | PT.INNT ---
Date of service: 05/21/23 Time of Service: 10:41 PT Notes Visit Reasons: Pneumonia Patient unavailable for therapy at 10:41, 14:31, and 15:45 due to multiple attempts to get IV access replaced. Patient was also seen at 11:45, but was somnolent / unable to open eyes. Patient on hold until tomorrow per RNs Mikki and Chayo.
--- NOTE | 2023-05-21 16:15 | DI.RAD_ITS ---
Exam(s) XR PORTABLE CHEST AP POST LINE EXAM: XR PORTABLE CHEST AP POST LINE CLINICAL HISTORY: Central line placement verification. TECHNIQUE: 2D digital imaging was performed. COMPARISON: CR XR PORTABLE CHEST AP from 05/19/2023 FINDINGS: Single AP portable view. There has been interval placement of a left-sided PICC line which is in good position. Distal tip is in the SVC. Heart size is normal. The mediastinum is not widened. There is no radiographic improvement in the previously described extensive bilateral lung infiltrates . Prior CT scan reveals these to predominantly involve both upper lobes. No obvious cavitation. No obvious pleural effusions. IMPRESSION: No radiographic improvement in the extensive bilateral pulmonary infiltrates. No pleural effusions. PICC line is in good position DATA REPOSITORY: RADIATION DOSE DELIVERED:
[2023-05-21] MEDS: Enoxaparin 30 MG/0.3 ML SYR SC (16:58)
[2023-05-21] MEDS: levoFLOXacin 500 MG/100 ML BAG 100 MG IVPB (17:03)
[2023-05-21] MEDS: Potassium Chloride 20 MEQ TABCR PO (21:18)
--- NOTE | 2023-05-21 21:54 | NUR.NOTE ---
Nursing Note: Received patient at 1900 on 4L/min NC with an oxygen saturation of 91%. Per previous shift, patient remained on 4L/min NC throughout the day and did not tolerate titration down by MD or nursing staff. Per previous shift, patient immediately desaturated to 80-82% during titration, with recovery upon return to 4L/min NC. Patient began to desaturate for this RN, upon entering the room, found patient to have nasal cannula in place and patient appeared to be sleeping. Patient required oxygen titration up to 5L/min NC to recover. Nasal cannula was exchanged for high flow nasal cannula and humidification was added for patient comfort/mucous membrane integrity. Patient since recovered to 90-91% on 5L/min. Vital signs throughout previous shift documented patient at times on 2L/min, 3.5L/min, as well as room air, however, per previous nursing staff, patient was unable to tolerate titration down. Patient lungs are wheezy throughout, with crackles throughout the bases. Patient becomes tachypneic with ambulation and oxygen saturation dips to 86-88% on 5L/min NC. Discussed with MD wyatt TREJO aware. 2100: Patient family members at bedside requested updates regarding patient lab values, specifically hemoglobin as well as HCT. The family was informed of current values and plan of care per EHR. Family expressed frustration and requested MD to discuss plan/lab values. MAYA trinidad MD to communicate with family.
[2023-05-21] MEDS: clonazePAM 0.5 MG TAB PO (22:18)
[2023-05-22] VITALS (24 sets, daily range): BP systolic 138–176; BP diastolic 58–95; PULSE 72–111; RESP 3–20; TEMP 36.6–38.7; O2SAT 86–96
[2023-05-22] MEDS: Albuterol/Ipratropium 3 ML UPD VIAL UPD ×2 (05:56→19:35)
[2023-05-22 06:11] LABS: MCH 29.8 pg (27.0-33.0); MCHC 33.7 % (32.0-36.0); MCV 88 fL (80-95); MPV 11.2 fL (8.0-11.0); Platelet Count 255 10^3/uL (130-400); RBC 2.25 10^6/uL (3.93-5.22); RDW 13.2 % (11.7-14.6); RDW-SD 42.5 fL; WBC 14.54 10^3/uL (4.4-10.8)
[2023-05-22 06:25] LABS: HCT 19.9 % (36.0-46.0); HGB 6.7 g/dL (11.2-15.7)
[2023-05-22 06:29] LABS: ALT 70 U/L (14-59); AST 107 U/L (15-37); Albumin 1.7 g/dL (3.4-5.0); Alkaline Phosphatase 88 U/L (46-116); Anion Gap 8.6 mmol/L (3-11); BUN 26 mg/dL (7-18); Bilirubin, Total 0.7 mg/dL (0.2-1.0); CO2 25.4 mmol/L (21.0-32.0); CREATININE 1.2 mg/dL (0.55-1.02); Calcium 8.5 mg/dL (8.5-10.1); Chloride 99 mmol/L (98-107); Estimated GFR 47.21 (mL/min/1.73m2); Glucose 87 mg/dL (74-106); Potassium 3.4 mmol/L (3.5-5.1); Sodium 133 mmol/L (136-145); Total Protein 5.1 g/dL (6.4-8.2)
[2023-05-22] MEDS: Normal Saline - Diluent 50 ML VIAL IJ (08:49)
[2023-05-22] MEDS: Omnipaque 350 MG/ML 100 ML BTL IJ (08:51)
[2023-05-22] MEDS: Normal Saline Flush 10 ML SYR IVP (08:52)
--- NOTE | 2023-05-22 08:55 | DI.CT_ITS ---
Exam(s) CT CHEST/ABD/PEL W EXAM: CT CHEST/ABD/PEL W CLINICAL HISTORY: low Hb, ? retoperi bleed. TECHNIQUE: Imaging Protocol: Axial computed tomography images with coronal and sagittal reformatted images were created and reviewed CONTRAST MATERIAL: Intravenous: Omnipaque 350 Contrast volume:100 ml Oral: None COMPARISON: CT CT CHEST PE CTA from 05/20/2023 CR XR PORTABLE CHEST AP POST LINE from 05/21/2023 FINDINGS: CHEST: LUNGS: Large areas of non cavitated infiltrate in both upper lobes, left larger than right, consisten t with what is seen on chest x-ray. There is also involvement of the lingular segment of the left remedios ng. There is sparing of the right middle lobe. There is infiltrate in the left lower lobe posterior basal segment. There are bilateral pleural effusions both moderate size, left larger than right. MEDIASTINUM: There is no prominent hilar adenopathy. No subcarinal adenopathy. Slightly enlarged ly mph nodes in the anterior left mediastinal fat noted. No axillary adenopathy. No supraclavicular ad enopathy. Visualized thyroid unremarkable. CARDIAC: Heart size is normal. There is no pericardial effusion.Caliber of the thoracic aorta is wit hin normal limits. OSSEOUS: No significant osseous lesions.. OTHER: Left PICC line is in satisfactory position with distal tip in the SVC. ABDOMEN: There is a small amount ascites in the upper abdomen tendon moderate amount of ascites in the pelvis. There is abnormal appearance of both psoas muscles, left more so than right and consistent with alfonzo ateral retroperitoneal hematomas. The left retroperitoneal hematoma is larger than the right. LIVER: Small benign cyst in the right hepatic lobe. No other significant focal liver findings nor di lated intrahepatic ducts. GALLBLADDER/BILIARY: No obvious gallbladder pathology. CBD is not dilated. PANCREAS: No evidence of pancreatic mass nor dilatation of the pancreatic duct. SPLEEN: Spleen is not enlarged. There are no intrasplenic lesions. Splenic and portal veins are rico nt. ADRENALS: There are no significant adrenal masses. KIDNEYS: No calculi nor hydronephrosis. No solid renal masses. Small sub cm cysts noted in the right kidney which do not require further workup. ABDOMINAL AORTA: Abdominal aorta is not enlarged. LYMPH NODES: There is no retroperitoneal nor paraaortic adenopathy. ABDOMINAL WALL: No evidence of significant anterior abdominal wall nor inguinal hernia. GI: There is no evidence of bowel obstruction. PELVIS: LYMPH NODES: There is no intrapelvic nor inguinal adenopathy. GI: No evidence of appendicitis.Sigmoid diverticulosis. No obvious acute diverticulitis. URINARY BLADDER: No calculi nor masses evident REPRODUCTIVE: Age-appropriate OSSEOUS: No significant osseous lesions. IMPRESSION: 1. Prominent bilateral retroperitoneal psoas hematomas, left larger than right. There is some ascite s also evident which is related to the hematomas. No evidence of organ lacerations. Spleen size nor mal. 2. Large areas of non cavitated infiltrate in both upper lobes, also involving the lingular segment o f the left lung and posterior basal segment left lower lobe. There is presently no cavitation. Sign ificant bilateral pleural effusions, left larger than right and associated with some volume loss in t he basal segments of the lower lobes. 3. PICC line in satisfactory position in the SVC. 4. Other findings as above. Called by myself to med surgery floor. RADIATION DOSE DELIVERED: Total DLP DATA REPOSITORY: All CT scans at this facility are submitted to the National Radiology Data Registry (NRDR) Dose Index Registry (DIR) with the [employer] (ACR). RADIATION OPTIMIZATION: All CT scans at this facility use at least one of these dose optimization te chniques: automated exposure control; mA and/or kV adjustment per patient size (includes targeted exa ms where dose is matched to clinical indication); or iterative reconstruction.
[2023-05-22] MEDS: Famotidine 20 MG TAB PO (09:09)
[2023-05-22] MEDS: Atorvastatin 40 MG TAB PO (09:09)
[2023-05-22] MEDS: Metoprolol CR 25 MG TABCR 75 MG PO (09:10)
[2023-05-22] MEDS: Losartan 50 MG TAB 100 MG PO (09:11)
[2023-05-22] MEDS: guaiFENesin 600 MG TABCR PO ×2 (09:11→19:35)
--- NOTE | 2023-05-22 09:54 | DI.VRAD_ITS ---
Addendum created by Charles Renee MD on 05/22/2023 9:55:40 AM EST: THIS REPORT CONTAINS FINDINGS THAT MAY BE CRITICAL TO PATIENT CARE. The findings were verbally communicated via telephone conference with Keo Najera at 9:55 AM EST on 05/22/2023. The findings were acknowledged and understood. Initial report created on 05/22/2023 9:53:47 AM EST: PROCEDURE INFORMATION: Exam: CT Chest With Contrast; Diagnostic Exam date and time: 05/22/2023 8:43 AM Age: 77 years old Clinical indication: Other: Low hb, ? retoperi bleed; Cough TECHNIQUE: Imaging protocol: Diagnostic computed tomography of the chest with contrast. 3D rendering (Not supervised by radiologist): MIP and/or 3D reconstructed images were created by the technologist. Contrast material: OMNIPAQUE 350; Contrast volume: 100 ml; Contrast route: INTRAVENOUS (IV); COMPARISON: CT CHEST PE CTA 05/20/2023 9:03 AM FINDINGS: Tubes, catheters and devices: PICC line terminating in the superior vena cava Lungs: Diffuse bilateral opacities in the lung stephens may represent multifocal pneumonia. There may be an underlying malignancy.. Pleural spaces: Moderate left pleural effusion. Smaller right pleural effusion.. Heart: Unremarkable. No cardiomegaly. No pericardial effusion. Lymph nodes: Pathologic node anterior to the preston 17 x 11 mm. Pathologic node in the preaortic region 17 x 10 mm. Vasculature: No pulmonary embolus . Bones/joints: Unremarkable. No acute fracture. Soft tissues: Unremarkable. IMPRESSION: 1. Pathologic node anterior to the preston 17 x 11 mm. Pathologic node in the preaortic region 17 x 10 mm. 2. Diffuse bilateral opacities in the lung stephens may represent multifocal pneumonia. There may be an underlying malignancy.. Recommend close follow-up to document resolution and rule out malignancy 3. No pulmonary embolus . 4. Moderate left pleural effusion. Smaller right pleural effusion.. PROCEDURE INFORMATION: Exam: CT Abdomen And Pelvis With Contrast Exam date and time: 05/22/2023 8:43 AM Age: 77 years old Clinical indication: Other: Low hb, ? retoperi bleed; Cough TECHNIQUE: Imaging protocol: Computed tomography of the abdomen and pelvis with contrast. 3D rendering (Not supervised by radiologist): MIP and/or 3D reconstructed images were created by the technologist. Contrast material: OMNIPAQUE 350; Contrast volume: 100 ml; Contrast route: INTRAVENOUS (IV); COMPARISON: CT ABDOMEN PELVIS W 05/15/2023 1:51 PM FINDINGS: Liver: Subcentimeter low attenuation area in the liver is too small for characterization. Gallbladder and bile ducts: Normal. No calcified stones. No ductal dilation. Pancreas: Normal. No ductal dilation. Spleen: Normal. No splenomegaly. Adrenal glands: Normal. No mass. Kidneys and ureters: Subcentimeter low attenuation area in the right kidney is too small for characterization. Stomach and bowel: Unremarkable. No obstruction. No mucosal thickening. Appendix: No evidence of appendicitis. Intraperitoneal space: Heterogeneous mass lateral to the left psoas measures at least 4.9 x 4.4 cm series 6, image 69. On the axial images the heterogeneous mass measures 7.4 x 5.2 cm. It is difficult to measure on the craniocaudal images . Findings consistent with retroperitoneal hematoma. Ascites in the abdomen and pelvis. Vasculature: Unremarkable. No abdominal aortic aneurysm. Lymph nodes: Unremarkable. No enlarged lymph nodes. Urinary bladder: Unremarkable as visualized. Reproductive: Unremarkable as visualized. Bones/joints: 1 cm sclerotic density noted in the right ilium, compatible with bone island (enostosis) in patient without history of neoplastic disease. Nuclear medicine bone scan may be useful for further evaluation if clinically indicated. Soft tissues: Edema in the left thigh and left flank IMPRESSION: 1. Heterogeneous mass lateral to the left psoas measures at least 4.9 x 4.4 cm series 6, image 69. On the axial images the heterogeneous mass measures 7.4 x 5.2 cm. It is difficult to measure on the craniocaudal images . Findings consistent with retroperitoneal hematoma. 2. Ascites in the abdomen and pelvis. Dictated and Authenticated by: Charles Renee MD. Ordering:BERNARDO Crowley MD
[2023-05-22] MEDS: diphenhydrAMINE 25 MG CAP PO (09:55)
[2023-05-22] MEDS: Acetaminophen 325 MG TAB 650 MG PO (09:56)
--- NOTE | 2023-05-22 10:39 | PGE_ITS ---
Date of Service Date of service: 05/22/23 Time of Service: 10:39 Assessment and Plan Assessment and plan (1) Severe sepsis: Status: Acute Assessment and plan: - Patient is severe sepsis criteria admission with a temperature of 104.1, heart rate of 120, white blood cell count of 13, and a lactic acid of 2.3 with source of infection being left upper lobe pneumonia -Repeat lactic acid was within normal limits -Was initially treated with Vanco and ceftazidime -had been on ceftazidime and azithromycin -However, urine Legionella antigen positive, has since been switched to Le vaquin, now day 3 -Follow-up a.m. CBC, blood cultures (2) Pneumonia: Status: Acute Assessment and plan: - As noted above Qualifiers: Pneumonia type: due to unspecified organism Laterality: left Lung location: upper lobe of lung Qualified Code(s): J18.9 - Pneumonia, unspecified organism (3) Acute hypoxemic respiratory failure: Status: Acute Assessment and plan: - Secondary to severe sepsis and treated acquired pneumonia as noted above -Required up to 4 L nasal cannula of supplemental oxygen -currently on 2L NC (4) Acute blood loss anemia: Status: Acute Assessment and plan: - 05/21/2023 patient's a.m. hemoglobin was 7.5 with a repeat at noon of 7.6 -Initially no identifiable source of the bleeding -Hemoglobin in a.m. 05/22/2023 6.7, 2 units of PRBCs ordered -Contrast CT of chest abdomen pelvis showed retroperitoneal bleed -Likely secondary to heparin drip a few days ago -Lovenox has been discontinued -We will follow-up posttransfusion hemoglobin and will transfuse if less than 7 (5) Retroperitoneal bleed: Status: Acute Assessment and plan: - As noted above (6) Hyperlipidemia: Status: Chronic Assessment and plan: - Continue home statin therapy (7) Essential hypertension: Status: Chronic Assessment and plan: - Continue home losartan, Toprol-XL (8) Delirium: Status: Acute Assessment and plan: As noted above, and appears to be suffering from delirium with waxing and waning altered mental status. She is redirectable, and did have significant improve ment of her mental status shortly after arrival of her daughter -Will continue delirium prevention such as frequent orienting of the patient, ambulating in her room, and ensuring that she gets a good night sleep -Mental status significantly improved Subjective Subjective Interval history since last seen: Patient states that she feels better today, but jokes that she is unhappy that she is in the hospital and is looking forward to continuing to be able to get up and ambulate. Exam Narrative Exam Narrative: Well-appearing older female lying in bed in no acute distress, ANO x4, heart regular rate and rhythm, lungs with coarse breath sounds in the left upper lobe otherwise clear to auscultation Objective Last Vital Signs Temp 99.0 F 05/22/23 10:20 Pulse 104 H 05/22/23 10:20 Resp 20 05/22/23 10:20 BP 176/95 H 05/22/23 10:20 Pulse Ox 96 05/22/23 10:20 Laboratory Results - last 24 hr 05/21/23 05/22/23 05/22/23 11:55 05:44 08:20 WBC 14.54 H RBC 2.25 L Hgb 7.6 L 6.7 L* Hct 22.4 L 19.9 L* MCV 88 MCH 29.8 MCHC 33.7 RDW 13.2 Plt Count 255 MPV 11.2 H Sodium 133 L Potassium 3.4 L Chloride 99 Carbon Dioxide 25.4 Anion Gap 8.6 BUN 26 H Creatinine 1.2 H Est GFR (CKD-EPI 2020) 47.21 Glucose 87 Calcium 8.5 Total Bilirubin 0.7 AST 107 H ALT 70 H Alkaline Phosphatase 88 Total Protein 5.1 L Albumin 1.7 L Patient ABO/Rh B Positive B Positive Antibody Screen NEGATIVE Crossmatch See Detail PAWSS Have you Been Recently Intoxicated or Drunk Within the Last 30 days?: No Have you Ever Experienced Previous Episodes of Alcohol Withdrawal?: No Have you ever Experienced Withdrawal Seizures?: No Have you ever Experienced Delirium Tremens(DT)s?: No Have you ever undergone Alcohol Rehabilitation Treatment (i.e, inpt ot outpatient treatment programs)?: No Have you ever Experienced Blackouts?: No Have you ever Combined Alcohol with other Downers within the last 90 days?: No Have you ever Combined Alcohol with any other Substance of Abuse during the last 90 days?: No Positive Blood Alcohol level on Presentation? [PCS.BAL]: No Evidence of Increased Autonomic Activity (i.e. HR>120, tremor, sweating, agitation, nausea)?: No Result: 0 Time Spent with Patient Time Spent with Patient: >50 minutes Time was spent: preparing to see the patient(eg.review tests), obtaining and/or reviewing separately otained hiistory, ordering medications,tests, procedures, referring, communicating with other health school childcare attendant, indepentently interpreting results, counseling the patient and care coordination
[2023-05-22] MEDS: levoFLOXacin 500 MG/100 ML BAG 100 MG IVPB (15:42)
[2023-05-22] MEDS: Acetaminophen 500 MG TAB 1000 MG PO (19:34)
[2023-05-22 21:36] LABS: HCT 24.6 % (36.0-46.0); HGB 8.6 g/dL (11.2-15.7)
[2023-05-23] VITALS (19 sets, daily range): BP systolic 143–171; BP diastolic 76–93; PULSE 95–105; RESP 3–20; TEMP 36.8–37.9; O2SAT 91–98
--- NOTE | 2023-05-23 | DI.RAD_ITS ---
Exam(s) XR PORTABLE CHEST AP EXAM: XR PORTABLE CHEST AP CLINICAL HISTORY: follow up pleural effusions. TECHNIQUE: 2D digital imaging was performed. COMPARISON: CR XR PORTABLE CHEST AP POST LINE from 05/21/2023 FINDINGS: Single AP portable view. Performed 05/23/2023 8:46 a.m. Heart size is upper normal. The mediastinum is not widened. There is stable appearance of the extensive bilateral infiltrates involving both upper lobes as well as the left lower lobe posterior basal segment. Very little change compared to yesterday. No obviou s cavitation. Distal tip of the PICC line is in satisfactory position in the lower SVC. IMPRESSION: Unchanged appearance of the extensive bilateral infiltrates without radiographic change compared to y esterday.Please note that although difficult to visualize on portable view, there are bilateral pleur al effusions here which were best seen on yesterday's CT scan, both moderate in size and left larger than right. DATA REPOSITORY: RADIATION DOSE DELIVERED:
[2023-05-23 02:06] LABS: Abs Immature Grans 0.92 10^3/uL (0.0-0.06); HCT 24.7 % (36.0-46.0); HGB 8.6 g/dL (11.2-15.7); MCH 29.8 pg (27.0-33.0); MCHC 34.8 % (32.0-36.0); MCV 86 fL (80-95); MPV 10.5 fL (8.0-11.0); Platelet Count 243 10^3/uL (130-400); RBC 2.89 10^6/uL (3.93-5.22); WBC 10.55 10^3/uL (4.4-10.8)
[2023-05-23 02:16] LABS: Anion Gap 8.4 mmol/L (3-11); BUN 21 mg/dL (7-18); CO2 28.6 mmol/L (21.0-32.0); CREATININE 1.2 mg/dL (0.55-1.02); Calcium 8.4 mg/dL (8.5-10.1); Chloride 101 mmol/L (98-107); Estimated GFR 47.21 (mL/min/1.73m2); Glucose 99 mg/dL (74-106); Magnesium 1.8 mg/dL (1.8-2.4); Potassium 3.5 mmol/L (3.5-5.1); Sodium 138 mmol/L (136-145)
[2023-05-23 02:22] LABS: Absolute Eosinophil Count 0.21 10^3/uL (0.0-0.7); Absolute Lymphocyte Count 2.11 10^3/uL (1.2-3.4); Absolute Monocyte Count 0.63 10^3/uL (0.1-0.8); Absolute Neutrophil Count 7.49 10^3/uL (1.2-6.7); Atypical Lymphocytes % 1; Diff Comment Manual Differential; Metamyelocytes % 1
[2023-05-23 02:23] LABS: Hypochromasia 1+
[2023-05-23 06:54] LABS: HCT 25.1 % (36.0-46.0); HGB 8.7 g/dL (11.2-15.7); MCH 29.9 pg (27.0-33.0); MCHC 34.7 % (32.0-36.0); MCV 86 fL (80-95); MPV 10.5 fL (8.0-11.0); Platelet Count 254 10^3/uL (130-400); RBC 2.91 10^6/uL (3.93-5.22); RDW 14.1 % (11.7-14.6); RDW-SD 44.4 fL; WBC 10.18 10^3/uL (4.4-10.8)
[2023-05-23 07:03] LABS: Anion Gap 5.3 mmol/L (3-11); BUN 20 mg/dL (7-18); CO2 28.7 mmol/L (21.0-32.0); CREATININE 1.2 mg/dL (0.55-1.02); Calcium 8.9 mg/dL (8.5-10.1); Chloride 101 mmol/L (98-107); Estimated GFR 47.21 (mL/min/1.73m2); Glucose 104 mg/dL (74-106); Potassium 3.4 mmol/L (3.5-5.1); Sodium 135 mmol/L (136-145)
[2023-05-23 07:55] LABS: Source Nasal/Nares
[2023-05-23 08:27] LABS: COVID-19 PCR Negative (Negative)
[2023-05-23 08:49] LABS: Lab Add On Test DONE
[2023-05-23] MEDS: Atorvastatin 40 MG TAB PO (08:59)
[2023-05-23] MEDS: guaiFENesin 600 MG TABCR PO ×2 (08:59→21:55)
[2023-05-23] MEDS: Losartan 50 MG TAB 100 MG PO (08:59)
[2023-05-23] MEDS: Metoprolol CR 25 MG TABCR 75 MG PO (09:00)
[2023-05-23] MEDS: Famotidine 20 MG TAB PO (09:00)
[2023-05-23 09:01] LABS: C-Reactive Protein 18.82 mg/dL (0.0-0.3)
[2023-05-23] MEDS: Potassium Chloride 20 MEQ TABCR 40 MEQ PO (09:01)
--- NOTE | 2023-05-23 09:17 | DI.VRAD_ITS ---
PROCEDURE INFORMATION: Exam: XR Chest Exam date and time: 05/23/2023 8:46 AM Age: 77 years old Clinical indication: Screening exam; Other screening; Patient HX: Follow up pleural effusions TECHNIQUE: Imaging protocol: Radiologic exam of the chest. Views: 1 view. COMPARISON: CT CHEST/ABD/PEL W 05/22/2023 8:43 AM FINDINGS: Tubes, catheters and devices: Left-sided PICC line tip in the superior vena cava. Lungs: Patchy airspace opacities throughout both lung stephens. Findings are consistent with multifocal pneumonia. Pleural spaces: Blunting of the costophrenic angles. No significant change in the appearance when compared to the prior exam dated 05/21/2023. Heart/Mediastinum: Heart size upper limits normal. Bones/joints: Unremarkable. IMPRESSION: 1. Blunting of the costophrenic angles. No significant interval change in appearance when compared to the prior examination 2. Airspace opacities throughout both lung stephens. These appear stable in appearance when compared to the prior examination. Dictated and Authenticated by: Lor Chapin MD. Ordering:URI Lakhani MD
[2023-05-23 09:24] LABS: Procalcitonin 0.9 ng/mL
[2023-05-23] MEDS: Albuterol/Ipratropium 3 ML UPD VIAL UPD ×4 (09:41→20:26)
--- NOTE | 2023-05-23 13:09 | PT.INTREAT ---
Date of service: 05/23/23 Time of Service: 10:30 PT Notes Visit Reasons: Pneumonia Inpatient Physical Therapy Treatment Note [facility] Date: 05/23/23 PRECAUTIONS: Fall, standard, activity as tolerated. SUBJECTIVE: Patient much more oriented than Wednesday. Reports remembering walking with this clinician on , reports that she has been very sick since. Reports feeling much better today than yesterday. OBJECTIVE: Per MARY JO Garcia, patient's hemoglobin this morning was 8.1. Patient is supine in bed, eager to participate in therapy. ? PAIN: none reported VITALS: monitored by nursing staff. ? ? BED MOBILITY/TRANSFERS? Rolling L/R: independent Supine-sit: SBA? Sit-supine: SBA ? Sit-stand: CGA ? Stand-sit: CGA? Bed-Chair: CGA ? Chair-bed: CGA ? Therapeutic Exercises ([id number]): Direct one-on-one instruction in therapeutic exercises to develop strength, endurance, range of motion and flexibility. Ambulation ? Assistive Device: FWW? Weight bearing: full Assist: CGA, wheelchair follow which proved unnecessary. ? Distance:? 200 feet? Deviation: kyphotic posture, good step length, adequate toe off, adequate step height. Gait largely unremarkable. Patient reports mild dizziness upon first standing which resolves in under a minute. Reports feeling woozy at end of treatment session. RN Jose notified. ? Provided skilled instruction in proper exercise performance Provided skilled manual cues to facilitate proper muscle recruitment and/or form. ASSESSMENT:? Patient is eager to rebuild her strength and stamina. 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 Does not enjoy being sick and/or being in the hospital. PLAN: continue global strengthening per plan of care until patient is medically cleared for discharge. TREATMENT CODE/TIME: 17 minutes beginning at 10:30
[2023-05-23] MEDS: Acetaminophen 500 MG TAB 1000 MG PO (15:25)
[2023-05-23] MEDS: levoFLOXacin 500 MG/100 ML BAG 100 MG IVPB (15:32)
--- NOTE | 2023-05-23 16:48 | W.PM.PROGNOT ---
Date of Service Date of service: 05/23/23 Time of Service: 16:49 Assessment and Plan Assessment and plan (1) Severe sepsis: Status: Acute Assessment and plan: Due to Legionella penumonia, present on admission. Continue levofloxacin (day 4). Clinically improving. Procalcitonin is improving. Trend procalcitonin and CRP. (2) Pneumonia: Status: Acute Assessment and plan: As above Qualifiers: Pneumonia type: due to unspecified organism Laterality: left Lung location: upper lobe of lung Qualified Code(s): J18.9 - Pneumonia, unspecified organism (3) Acute hypoxemic respiratory failure: Status: Acute Assessment and plan: In setting of Legionella pneumonia. Continue levofloxacin. Encourage pulmonary toilet. Wean O2 as tolerated. Does have small bilateral pleural effusions, but they appear too small to tap on today's CXR. PE ruled out. (4) Delirium: Status: Acute Assessment and plan: I think this is toxic metabolic encephalopathy due to pneumoia. Mental status is improving with treatment of pneumonia. Continue levofloxacin; monitor mental status now we are starting a new pain medication (nucynta). (5) Acute blood loss anemia: Status: Acute Assessment and plan: In setting of an acute retroperitoneal hemorrhage. H/H has now stabilized. Required a transfusion of 2 units pRBCs. Continue to monitor H/H. (6) Retroperitoneal bleed: Status: Acute Assessment and plan: As above (7) Hyperlipidemia: Status: Chronic Assessment and plan: Continue atorvastatin (8) Essential hypertension: Status: Chronic Assessment and plan: Continue losartan, Toprol-XL (9) DVT prophylaxis: Status: Acute Assessment and plan: SCDs. Chemical DVT ppx is contraindicated in setting of retroperitoneal hemorrhage (10) Discharge planning issues: Status: Acute Assessment and plan: Full code Palliative care consulted. Discussed with Dr Gibbs and with the patient's daughter at the bedside. Subjective Subjective Interval history since last seen: Ms Montes is doing quite a bit better today, her daughter feels. She still has a poor appetite and is still a little confused, but is much better as far as her mental status goes. She has not been combative or agitated. She has been tired/somnolent. The patient endorses a mild headache, a pain in her B hips, Denies dizziness, CP, SOB, nausea. Her cough has been minimal. Endorses feeling depressed. Tmax 38.7 yesterday at 19:34. Afebrile so far today (T max of 37.9). Down to 3L of O2 by NC. Exam Narrative Exam Narrative: General: A somnolent but easily arousable elderly female who is A&Ox3, cooperative, answers questions appropriately, on 3L of O2 by NC, answers questions appropriately HEENT: EOMI, MMM Heart: RRR, no m/r/g, very mildly tachycardic Lungs: CTAB Abdomen: soft, nontender, nondistended Extremities: no e/c/c BLEs, 1+ pedal pulses B, wearing SCDs Objective Last Vital Signs Temp 37.8 C H 05/23/23 15:25 Pulse 97 H 05/23/23 16:19 Resp 16 05/23/23 16:15 BP 154/78 H 05/23/23 15:20 Pulse Ox 91 L 05/23/23 16:15 Laboratory Results - last 24 hr 05/22/23 05/23/23 05/23/23 21:27 02:02 06:15 WBC 10.55 10.18 RBC 2.89 L 2.91 L Hgb 8.6 L 8.6 L 8.7 L Hct 24.6 L 24.7 L 25.1 L MCV 86 86 MCH 29.8 29.9 MCHC 34.8 34.7 RDW 14.0 14.1 Plt Count 243 254 MPV 10.5 10.5 Immature Gran % 0.0 Neutrophils % 71.0 Lymphocytes % 19.0 Atypical Lymphs % 1 Monocytes % 6.0 Eosinophils % 2.0 Basophils % 0.0 Metamyelocytes % 1 Nucleated RBC % 0.0 Absolute Neutrophils 7.49 H Absolute Lymphocytes 2.11 Absolute Monocytes 0.63 Absolute Eosinophils 0.21 Absolute Basophils 0.00 RBC Morphology See Below Hypochromasia 1+ Sodium 138 135 L Potassium 3.5 3.4 L Chloride 101 101 Carbon Dioxide 28.6 28.7 Anion Gap 8.4 5.3 BUN 21 H 20 H Creatinine 1.2 H 1.2 H Est GFR (CKD-EPI 2020) 47.21 47.21 Glucose 99 104 Calcium 8.4 L 8.9 Magnesium 1.8 C-Reactive Protein 18.82 H Procalcitonin 0.9 COVID-19 Source SARS-CoV-2 (PCR) Influenza Type A (PCR) Influenza Type B (PCR) RSV (PCR) Add-On Test Request DONE 05/23/23 05/23/23 05/23/23 06:50 07:35 07:35 WBC RBC Hgb Hct MCV MCH MCHC RDW Plt Count MPV Immature Gran % Neutrophils % Lymphocytes % Atypical Lymphs % Monocytes % Eosinophils % Basophils % Metamyelocytes % Nucleated RBC % Absolute Neutrophils Absolute Lymphocytes Absolute Monocytes Absolute Eosinophils Absolute Basophils RBC Morphology Hypochromasia Sodium Potassium Chloride Carbon Dioxide Anion Gap BUN Creatinine Est GFR (CKD-EPI 2020) Glucose Calcium Magnesium C-Reactive Protein Procalcitonin COVID-19 Source Cancelled Cancelled Nasal/Nares SARS-CoV-2 (PCR) Cancelled Cancelled Influenza Type A (PCR) Cancelled Influenza Type B (PCR) Cancelled RSV (PCR) Cancelled Add-On Test Request 05/23/23 07:35 WBC RBC Hgb Hct MCV MCH MCHC RDW Plt Count MPV Immature Gran % Neutrophils % Lymphocytes % Atypical Lymphs % Monocytes % Eosinophils % Basophils % Metamyelocytes % Nucleated RBC % Absolute Neutrophils Absolute Lymphocytes Absolute Monocytes Absolute Eosinophils Absolute Basophils RBC Morphology Hypochromasia Sodium Potassium Chloride Carbon Dioxide Anion Gap BUN Creatinine Est GFR (CKD-EPI 2020) Glucose Calcium Magnesium C-Reactive Protein Procalcitonin COVID-19 Source SARS-CoV-2 (PCR) Negative Influenza Type A (PCR) Cancelled Influenza Type B (PCR) Cancelled RSV (PCR) Cancelled Add-On Test Request Objective Narrative Objective Narrative: CXR: Unchanged appearance of the extensive bilateral infiltrates without radiographic change compared to yesterday.Please note that although difficult to visualize on portable view, there are bilateral pleural effusions here which were best seen on yesterday's CT scan, both moderate in size and left larger than right. (I think they are too small to tap). PAWSS Have you Been Recently Intoxicated or Drunk Within the Last 30 days?: No Have you Ever Experienced Previous Episodes of Alcohol Withdrawal?: No Have you ever Experienced Withdrawal Seizures?: No Have you ever Experienced Delirium Tremens(DT)s?: No Have you ever undergone Alcohol Rehabilitation Treatment (i.e, inpt ot outpatient treatment programs)?: No Have you ever Experienced Blackouts?: No Have you ever Combined Alcohol with other Downers within the last 90 days?: No Have you ever Combined Alcohol with any other Substance of Abuse during the last 90 days?: No Positive Blood Alcohol level on Presentation? [PCS.BAL]: No Evidence of Increased Autonomic Activity (i.e. HR>120, tremor, sweating, agitation, nausea)?: No Result: 0 Time Spent with Patient Time Spent with Patient: 35-49 minutes Time was spent: preparing to see the patient(eg.review tests), obtaining and/or reviewing separately otained hiistory, ordering medications,tests, procedures, referring, communicating with other health primary health care nurse, indepentently interpreting results, counseling the patient and care coordination
--- NOTE | 2023-05-23 17:26 | PCNE_ITS ---
Date of service: 05/23/23 Time of Service: 09:00 History of Present Illness History of Present Illness Chief Complaint: Pneumonia, mental status changes, bilateral retroperitoneal bleed Narrative: Jenifer arthur is well-known to me. She is normally a very very vibrant woman who exercises regularly and tends to be on the go. Since about she has been more tired than usual. She did go to the emergency room and was thought to have a possible urinary tract infection. She returned a few days later and was admitted to the hospital with a pneumonia. This later turned out to be Legionella. During the course of her treatment she did have a heparin drip started for possible pulmonary embolism. Chest CT showed that this was not the case but she did develop bilateral retroperitoneal bleed, had a drop in her hemoglobin, received 2 units of packed red blood cells. Her mental status has been off since arrival to the hospital. Today she told me when asked where she was, she said people tell me I am at [facility] but I know that I am not She has been getting close follow-up by hospitalist team. She admits today that she is feeling a little depressed Assessment and Plan Assessment and plan (1) Acute blood loss anemia: Status: Acute (2) Retroperitoneal bleed: Status: Acute Assessment and plan: She has received 2 units of packed red blood cells in her hemoglobin has come up appropriately. Hopefully this will stabilize she will not require more (3) Delirium: Status: Acute Assessment and plan: Although it was considerably worse a few days ago, her delirium is still present (4) Acute hypoxemic respiratory failure: Status: Acute Assessment and plan: Oxygen in place (5) Pneumonia: Status: Acute Assessment and plan: She is on Levaquin for her Legionella pneumonia. There is some concern about possible pulmonary nodules. These will need to be dealt with as she improves She is a full code. Her daughter Lor is the healthcare agent Qualifiers: Pneumonia type: due to unspecified organism Laterality: left Lung location: upper lobe of lung Qualified Code(s): J18.9 - Pneumonia, unspecified organism Review of Systems Narrative: Depression, she does have some aches and pains but luckily her back is feeling better. Mental status changes [facility] All Active Problems (Updated 05/23/23 @ 16:52 by Lesvia Law MD) Discharge planning issues (Acute) DVT prophylaxis (Acute) Acute blood loss anemia (Acute) Retroperitoneal bleed (Acute) Delirium (Acute) Acute hypoxemic respiratory failure (Acute) Severe sepsis (Acute) Pneumonia (Acute) Sepsis (Acute) Acute hypoxemic respiratory failure (Acute) Fever (Acute) Acute pyelonephritis (Acute) Splinter of finger (Acute) Tachycardia (Acute) 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) Optic nerve swelling (Acute) Decreased hearing of both ears (Acute) Change in mole (Acute) Atrophy of vagina (Acute) Lumbar arthropathy (Acute) Insomnia (Acute) Acute bilateral low back pain (Acute) Foot pain (Acute) Shoulder pain, right (Acute) Abnormal renal function (Chronic 09/14/13) Anxiety (Chronic) Depressive disorder (Chronic) Essential hypertension (Chronic) GERD (gastroesophageal reflux disease) (Chronic 04/17/14) Hiatal hernia (Chronic) Hyperlipidemia (Chronic 02/14/13) Osteopenia (Chronic) T-scores of -1.3 Medical History Bruit Carpal tunnel syndrome of right wrist (11/15/13) Corneal abrasion (05/20/00) Papanicolaou smear of vagina with atypical squamous cells of undetermined significance (ASC-US) (05/20/03) Polyp of corpus uteri Diabetes mellitus Right carotid bruit Corneal abrasion, left 05/20/00 Pap smear vag w ASC-US 05/20/03 neg. high risk HPV Abdominal pain Acquired trigger finger multiple fingers affected Cataract (02/15/14) Asthma GERD (gastroesophageal reflux disease) HTN (hypertension) Hypercholesterolemia Surgical History History of eye surgery Status post carpal tunnel release S/P carpal tunnel release H/O eye surgery 06/21/00 left S/P tubal ligation Open Carpal Tunnel release 01/23/14; RIGHT EYE SURGERY 2000-LEFT Family History Mother , SPINAL STENOSIS at age 80. PMR (polymyalgia rheumatica) Father Diabetes Essential hypertension Depression Heart disease Hyperlipidemia Stroke Brother Essential hypertension Hyperlipidemia Brother Diabetes Essential hypertension Heart disease stents Hyperlipidemia Stroke Brother Essential hypertension Heart disease Bypass Hyperlipidemia Grandfather Neoplasm BLADDER Asthma Grandfather Stroke Grandmother Diabetes Heart disease Neoplasm LEUKEMIA Daughter Asthma Daughter Asthma Social History Smoking/Tobacco Use Status: Never Second Hand Exposure: Yes Smoking risk assessment performed?: Yes Alcohol Intake: current Alcohol Intake frequency: holidays/special occasions only Alcohol type: wine Drug use: Never Substance use type: does not use Caregiver/Support person: No Household members: none Housing: house Communication Needs: Hard of Hearing and Corrective Lenses Do you need help understanding health information?: Never Pets and animals: Yes Pets and animals: cat(s) Sexually active: No Do you think of yourself as: straight/heterosexual Current gender identity: female What is your relationship status?: How often do you talk on the phone with friends or family?: three or more times per week How often do you get together with friends or relatives?: three or more times per week How often do you attend confucianist or latter-day services?: decline to answer Do you belong to any clubs or organized social groups?: no Panel score (0-1 are the most socially isolated patients): 1 [place]nn/Judaism: Religion Seatbelt use: always Do you feel safe at home: Yes Do you feel safe in your relationship?: Yes Exam Narrative Exam Narrative: 77-year-old woman who looks younger than her stated age. Overall she is smiling and her mood appears good although she admits to being depressed. She has oxygen in place. She moves with relative ease although she has a lot of tubes and wires on her. Her heart is on the fast side today in the upper 90s. Her lungs she does have some posterior left rales Results Last Vital Signs Temp 100.0 F H 05/23/23 15:25 Pulse 97 H 05/23/23 16:19 Resp 16 05/23/23 16:15 BP 154/78 H 05/23/23 15:20 Pulse Ox 92 05/23/23 17:12 Labs 05/24/23 06:15 05/24/23 06:15 Labs: Laboratory Results - last 24 hr 05/22/23 05/23/23 05/23/23 21:27 02:02 06:15 WBC 10.55 10.18 RBC 2.89 L 2.91 L Hgb 8.6 L 8.6 L 8.7 L Hct 24.6 L 24.7 L 25.1 L MCV 86 86 MCH 29.8 29.9 MCHC 34.8 34.7 RDW 14.0 14.1 Plt Count 243 254 MPV 10.5 10.5 Immature Gran % 0.0 Neutrophils % 71.0 Lymphocytes % 19.0 Atypical Lymphs % 1 Monocytes % 6.0 Eosinophils % 2.0 Basophils % 0.0 Metamyelocytes % 1 Nucleated RBC % 0.0 Absolute Neutrophils 7.49 H Absolute Lymphocytes 2.11 Absolute Monocytes 0.63 Absolute Eosinophils 0.21 Absolute Basophils 0.00 RBC Morphology See Below Hypochromasia 1+ Sodium 138 135 L Potassium 3.5 3.4 L Chloride 101 101 Carbon Dioxide 28.6 28.7 Anion Gap 8.4 5.3 BUN 21 H 20 H Creatinine 1.2 H 1.2 H Est GFR (CKD-EPI 2020) 47.21 47.21 Glucose 99 104 Calcium 8.4 L 8.9 Magnesium 1.8 C-Reactive Protein 18.82 H Procalcitonin 0.9 COVID-19 Source SARS-CoV-2 (PCR) Influenza Type A (PCR) Influenza Type B (PCR) RSV (PCR) Add-On Test Request DONE 05/23/23 05/23/23 05/23/23 06:50 07:35 07:35 WBC RBC Hgb Hct MCV MCH MCHC RDW Plt Count MPV Immature Gran % Neutrophils % Lymphocytes % Atypical Lymphs % Monocytes % Eosinophils % Basophils % Metamyelocytes % Nucleated RBC % Absolute Neutrophils Absolute Lymphocytes Absolute Monocytes Absolute Eosinophils Absolute Basophils RBC Morphology Hypochromasia Sodium Potassium Chloride Carbon Dioxide Anion Gap BUN Creatinine Est GFR (CKD-EPI 2020) Glucose Calcium Magnesium C-Reactive Protein Procalcitonin COVID-19 Source Cancelled Cancelled Nasal/Nares SARS-CoV-2 (PCR) Cancelled Cancelled Influenza Type A (PCR) Cancelled Influenza Type B (PCR) Cancelled RSV (PCR) Cancelled Add-On Test Request 05/23/23 07:35 WBC RBC Hgb Hct MCV MCH MCHC RDW Plt Count MPV Immature Gran % Neutrophils % Lymphocytes % Atypical Lymphs % Monocytes % Eosinophils % Basophils % Metamyelocytes % Nucleated RBC % Absolute Neutrophils Absolute Lymphocytes Absolute Monocytes Absolute Eosinophils Absolute Basophils RBC Morphology Hypochromasia Sodium Potassium Chloride Carbon Dioxide Anion Gap BUN Creatinine Est GFR (CKD-EPI 2020) Glucose Calcium Magnesium C-Reactive Protein Procalcitonin COVID-19 Source SARS-CoV-2 (PCR) Negative Influenza Type A (PCR) Cancelled Influenza Type B (PCR) Cancelled RSV (PCR) Cancelled Add-On Test Request
[2023-05-24] VITALS (36 sets, daily range): BP systolic 137–171; BP diastolic 76–91; PULSE 17–114; RESP 3–92; TEMP 36.6–37.5; O2SAT 92–100
[2023-05-24 06:46] LABS: Abs Immature Grans 0.66 10^3/uL (0.0-0.06); Absolute Basophil Count 0.05 10^3/uL (0.0-0.2); Absolute Lymphocyte Count 1.07 10^3/uL (1.2-3.4); Absolute Monocyte Count 0.66 10^3/uL (0.1-0.8); Absolute Neutrophil Count 8.05 10^3/uL (1.2-6.7); Basophils % 0.5; Eosinophils % 2.8; HCT 25.6 % (36.0-46.0); HGB 8.8 g/dL (11.2-15.7); Immature Grans % 6.1; Lymphocytes % 9.9; MCH 29.8 pg (27.0-33.0); MCHC 34.4 % (32.0-36.0); MCV 87 fL (80-95); MPV 10.2 fL (8.0-11.0); Monocytes % 6.1; Neutrophils % 74.6; Platelet Count 288 10^3/uL (130-400); RBC 2.95 10^6/uL (3.93-5.22); RDW 13.7 % (11.7-14.6); RDW-SD 43.7 fL; WBC 10.79 10^3/uL (4.4-10.8)
[2023-05-24 07:15] LABS: Diff Comment Diff Reviewed; RBC Morphology Normal
[2023-05-24 07:21] LABS: Anion Gap 6.8 mmol/L (3-11); BUN 17 mg/dL (7-18); C-Reactive Protein 14.87 mg/dL (0.0-0.3); CO2 29.2 mmol/L (21.0-32.0); CREATININE 1.2 mg/dL (0.55-1.02); Chloride 99 mmol/L (98-107); Estimated GFR 47.21 (mL/min/1.73m2); Glucose 114 mg/dL (74-106); Magnesium 1.8 mg/dL (1.8-2.4); Potassium 3.6 mmol/L (3.5-5.1); Sodium 135 mmol/L (136-145)
[2023-05-24] MEDS: Albuterol/Ipratropium 3 ML UPD VIAL UPD ×3 (07:57→20:49)
--- NOTE | 2023-05-24 08:13 | W.PALPGNOTE ---
Date of service: 05/24/23 Time of Service: 08:13 Assessment and Plan Assessment and plan (1) Acute blood loss anemia: Status: Acute Assessment and plan: Hematocrit remained stable after retroperitoneal bleeds and 2 units of packed red blood cells (2) Delirium: Status: Acute Assessment and plan: Resolving. Today she had normal mental status. (3) Acute hypoxemic respiratory failure: Status: Acute Assessment and plan: She presently has an upper 90s pulse ox reading. She may be able to decrease her oxygen. I also recommend that she start walking regularly and increasing her exercise which will help her. I did move her incentive spirometer closer to her so that she would use it more regularly (4) Pneumonia: Status: Acute Assessment and plan: She is on Levaquin. Appears to be improving greatly. I did discuss with Dr. Thanh monae seeing her nuclear monitoring technician. To the best of my knowledge she has had tachycardia and that spent it. It would be great to release her from all the wires that she has around her and perhaps she would ambulate more and heal quicker I did discuss Jenifer's present condition with her daughter Lor Qualifiers: Pneumonia type: due to unspecified organism Laterality: left Lung location: upper lobe of lung Qualified Code(s): J18.9 - Pneumonia, unspecified organism Subjective Subjective Interval history since last seen: Jenifer states that she feels much better today. She is clear, knows where she is, and answers questions appropriately Exam Narrative Exam Narrative: Jenifer continues to have rales, more on the left than right. She is tachycardic. Her mood has greatly improved from yesterday. She seems less depressed, and more ready to heal and get home. Her mouth is extremely dry and she states that she drinks 6 glasses of water recently. She is urinating regularly. Objective Last Vital Signs Temp 98.4 F 05/24/23 07:31 Pulse 17 L 05/24/23 07:58 Resp 92 H 05/24/23 07:58 BP 171/88 H 05/24/23 07:31 Pulse Ox 97 05/24/23 07:58 Laboratory Results - last 24 hr 05/23/23 05/23/23 05/24/23 06:15 07:35 06:15 WBC 10.79 RBC 2.95 L Hgb 8.8 L Hct 25.6 L MCV 87 MCH 29.8 MCHC 34.4 RDW 13.7 Plt Count 288 MPV 10.2 Immature Gran % 6.1 Neutrophils % 74.6 Lymphocytes % 9.9 Monocytes % 6.1 Eosinophils % 2.8 Basophils % 0.5 Nucleated RBC % 0.0 Absolute Neutrophils 8.05 H Absolute Lymphocytes 1.07 L Absolute Monocytes 0.66 Absolute Eosinophils 0.30 Absolute Basophils 0.05 RBC Morphology Normal Sodium 135 L Potassium Chloride Carbon Dioxide Anion Gap BUN Creatinine Est GFR (CKD-EPI 2020) Glucose Calcium Magnesium C-Reactive Protein 18.82 H Procalcitonin 0.9 SARS-CoV-2 (PCR) Negative Add-On Test Request DONE 05/24/23 05/24/23 05/24/23 06:15 06:15 06:15 WBC RBC Hgb Hct MCV MCH MCHC RDW Plt Count MPV Immature Gran % Neutrophils % Lymphocytes % Monocytes % Eosinophils % Basophils % Nucleated RBC % Absolute Neutrophils Absolute Lymphocytes Absolute Monocytes Absolute Eosinophils Absolute Basophils RBC Morphology Sodium Cancelled Potassium 3.6 Cancelled Chloride 99 Cancelled Carbon Dioxide 29.2 Anion Gap BUN Creatinine Est GFR (CKD-EPI 2020) Glucose Calcium Magnesium C-Reactive Protein Procalcitonin SARS-CoV-2 (PCR) Add-On Test Request 05/24/23 05/24/23 05/24/23 06:15 06:15 06:15 WBC RBC Hgb Hct MCV MCH MCHC RDW Plt Count MPV Immature Gran % Neutrophils % Lymphocytes % Monocytes % Eosinophils % Basophils % Nucleated RBC % Absolute Neutrophils Absolute Lymphocytes Absolute Monocytes Absolute Eosinophils Absolute Basophils RBC Morphology Sodium Potassium Chloride Carbon Dioxide Cancelled Anion Gap 6.8 Cancelled BUN 17 Cancelled Creatinine 1.2 H Est GFR (CKD-EPI 2020) Glucose Calcium Magnesium C-Reactive Protein Procalcitonin SARS-CoV-2 (PCR) Add-On Test Request 05/24/23 05/24/23 05/24/23 06:15 06:15 06:15 WBC RBC Hgb Hct MCV MCH MCHC RDW Plt Count MPV Immature Gran % Neutrophils % Lymphocytes % Monocytes % Eosinophils % Basophils % Nucleated RBC % Absolute Neutrophils Absolute Lymphocytes Absolute Monocytes Absolute Eosinophils Absolute Basophils RBC Morphology Sodium Potassium Chloride Carbon Dioxide Anion Gap BUN Creatinine Cancelled Est GFR (CKD-EPI 2020) 47.21 Cancelled Glucose 114 H Cancelled Calcium 9.0 Magnesium C-Reactive Protein Procalcitonin SARS-CoV-2 (PCR) Add-On Test Request 05/24/23 05/24/23 06:15 06:15 WBC RBC Hgb Hct MCV MCH MCHC RDW Plt Count MPV Immature Gran % Neutrophils % Lymphocytes % Monocytes % Eosinophils % Basophils % Nucleated RBC % Absolute Neutrophils Absolute Lymphocytes Absolute Monocytes Absolute Eosinophils Absolute Basophils RBC Morphology Sodium Potassium Chloride Carbon Dioxide Anion Gap BUN Creatinine Est GFR (CKD-EPI 2020) Glucose Calcium Cancelled Magnesium 1.8 Cancelled C-Reactive Protein 14.87 H Procalcitonin SARS-CoV-2 (PCR) Add-On Test Request
[2023-05-24] MEDS: Atorvastatin 40 MG TAB PO (08:57)
[2023-05-24] MEDS: Famotidine 20 MG TAB PO (08:57)
[2023-05-24] MEDS: Losartan 50 MG TAB 100 MG PO (08:57)
[2023-05-24] MEDS: guaiFENesin 600 MG TABCR PO ×2 (08:57→20:12)
[2023-05-24] MEDS: Metoprolol CR 25 MG TABCR 75 MG PO (08:57)
[2023-05-24] MEDS: Benzocaine/Menthol LOZG 15/BOX 1 EACH SUC (08:58)
--- NOTE | 2023-05-24 09:19 | W.PM.PROGNOT ---
Date of Service Date of service: 05/24/23 Time of Service: 09:19 Assessment and Plan Assessment and plan (1) Severe sepsis: Status: Acute Assessment and plan: Due to Legionella penumonia, present on admission. Continue levofloxacin (day 5). Monitor fever curve. No fever overnight. T max was 37.9 at 07:25 am yesterday. This is very encouraging. Clinically improving. Procalcitonin and CRP are improving. Continue to trend procalcitonin and CRP. (2) Pneumonia: Status: Acute Assessment and plan: As above Qualifiers: Pneumonia type: due to unspecified organism Laterality: left Lung location: upper lobe of lung Qualified Code(s): J18.9 - Pneumonia, unspecified organism (3) Acute hypoxemic respiratory failure: Status: Acute Assessment and plan: In setting of Legionella pneumonia. Down to 2L of O2 by NC today. Continue levofloxacin. Encourage pulmonary toilet. Wean O2 as tolerated. Does have bilateral pleural effusions, but they appear too small to tap on CXR yesterday. PE ruled out. (4) Delirium: Status: Acute Assessment and plan: I think this is toxic metabolic encephalopathy due to pneumoia. Improving. Continue levofloxacin; monitor mental status. (5) Acute blood loss anemia: Status: Acute Assessment and plan: In setting of an acute retroperitoneal hemorrhage. H/H remains stable (8.8/25.6). Required a transfusion of 2 units pRBCs. Continue to monitor H/H. (6) Retroperitoneal bleed: Status: Acute Assessment and plan: As above Written for prn nucynta for the back pain due to this. (7) Hyperlipidemia: Status: Chronic Assessment and plan: Continue atorvastatin (8) Essential hypertension: Status: Chronic Assessment and plan: Continue losartan, Toprol-XL (I am increasing dose of toprol XL). (9) DVT prophylaxis: Status: Acute Assessment and plan: SCDs. Chemical DVT ppx is contraindicated in setting of retroperitoneal hemorrhage (10) Discharge planning issues: Status: Acute Assessment and plan: Full code Palliative care consulted. Discussed with Dr Gibbs. The daughter was not in the room at the time of my exam this am. Subjective Subjective Interval history since last seen: Ms Montes states she is feeling better. She is on 2L of O2 by NC this am. She states her breathing and cough are better. She denies dizziness, CP, SOB, n/v. She does continue to report pain in her lower back. She knows she is at [facility] but thinks it's 2027. When I told her it's 2022, she stated oh, that's why I feel so old! Exam Narrative Exam Narrative: General: A very pleasant elderly female who is A&Ox2, appears somewhat uncomfortable in bed, on 2L of O2 by NC w/o dyspnea/tachypnea/cyanosis, dry cough HEENT: EOMI, MMM Heart: RRR, no m/r/g, mildly tachycardic Lungs: CTAB Abdomen: soft, nontender, nondistended Extremities: no e/c/c BLEs, 1+ pedal pulses B Objective Last Vital Signs Temp 36.9 C 05/24/23 07:31 Pulse 17 L 05/24/23 07:58 Resp 92 H 05/24/23 07:58 BP 171/88 H 05/24/23 07:31 Pulse Ox 97 05/24/23 07:58 Laboratory Results - last 24 hr 05/23/23 05/24/23 05/24/23 06:15 06:15 06:15 WBC 10.79 RBC 2.95 L Hgb 8.8 L Hct 25.6 L MCV 87 MCH 29.8 MCHC 34.4 RDW 13.7 Plt Count 288 MPV 10.2 Immature Gran % 6.1 Neutrophils % 74.6 Lymphocytes % 9.9 Monocytes % 6.1 Eosinophils % 2.8 Basophils % 0.5 Nucleated RBC % 0.0 Absolute Neutrophils 8.05 H Absolute Lymphocytes 1.07 L Absolute Monocytes 0.66 Absolute Eosinophils 0.30 Absolute Basophils 0.05 RBC Morphology Normal Sodium 135 L Cancelled Potassium 3.6 Chloride Carbon Dioxide Anion Gap BUN Creatinine Est GFR (CKD-EPI 2020) Glucose Calcium Magnesium C-Reactive Protein Procalcitonin 0.9 05/24/23 05/24/23 05/24/23 06:15 06:15 06:15 WBC RBC Hgb Hct MCV MCH MCHC RDW Plt Count MPV Immature Gran % Neutrophils % Lymphocytes % Monocytes % Eosinophils % Basophils % Nucleated RBC % Absolute Neutrophils Absolute Lymphocytes Absolute Monocytes Absolute Eosinophils Absolute Basophils RBC Morphology Sodium Potassium Cancelled Chloride 99 Cancelled Carbon Dioxide 29.2 Cancelled Anion Gap 6.8 BUN Creatinine Est GFR (CKD-EPI 2020) Glucose Calcium Magnesium C-Reactive Protein Procalcitonin 05/24/23 05/24/23 05/24/23 06:15 06:15 06:15 WBC RBC Hgb Hct MCV MCH MCHC RDW Plt Count MPV Immature Gran % Neutrophils % Lymphocytes % Monocytes % Eosinophils % Basophils % Nucleated RBC % Absolute Neutrophils Absolute Lymphocytes Absolute Monocytes Absolute Eosinophils Absolute Basophils RBC Morphology Sodium Potassium Chloride Carbon Dioxide Anion Gap Cancelled BUN 17 Cancelled Creatinine 1.2 H Cancelled Est GFR (CKD-EPI 2020) 47.21 Glucose Calcium Magnesium C-Reactive Protein Procalcitonin 05/24/23 05/24/23 05/24/23 06:15 06:15 06:15 WBC RBC Hgb Hct MCV MCH MCHC RDW Plt Count MPV Immature Gran % Neutrophils % Lymphocytes % Monocytes % Eosinophils % Basophils % Nucleated RBC % Absolute Neutrophils Absolute Lymphocytes Absolute Monocytes Absolute Eosinophils Absolute Basophils RBC Morphology Sodium Potassium Chloride Carbon Dioxide Anion Gap BUN Creatinine Est GFR (CKD-EPI 2020) Cancelled Glucose 114 H Cancelled Calcium 9.0 Cancelled Magnesium 1.8 C-Reactive Protein Procalcitonin 05/24/23 06:15 WBC RBC Hgb Hct MCV MCH MCHC RDW Plt Count MPV Immature Gran % Neutrophils % Lymphocytes % Monocytes % Eosinophils % Basophils % Nucleated RBC % Absolute Neutrophils Absolute Lymphocytes Absolute Monocytes Absolute Eosinophils Absolute Basophils RBC Morphology Sodium Potassium Chloride Carbon Dioxide Anion Gap BUN Creatinine Est GFR (CKD-EPI 2020) Glucose Calcium Magnesium Cancelled C-Reactive Protein 14.87 H Procalcitonin PAWSS Have you Been Recently Intoxicated or Drunk Within the Last 30 days?: No Have you Ever Experienced Previous Episodes of Alcohol Withdrawal?: No Have you ever Experienced Withdrawal Seizures?: No Have you ever Experienced Delirium Tremens(DT)s?: No Have you ever undergone Alcohol Rehabilitation Treatment (i.e, inpt ot outpatient treatment programs)?: No Have you ever Experienced Blackouts?: No Have you ever Combined Alcohol with other Downers within the last 90 days?: No Have you ever Combined Alcohol with any other Substance of Abuse during the last 90 days?: No Positive Blood Alcohol level on Presentation? [PCS.BAL]: No Evidence of Increased Autonomic Activity (i.e. HR>120, tremor, sweating, agitation, nausea)?: No Result: 0 Time Spent with Patient Time Spent with Patient: 35-49 minutes Time was spent: preparing to see the patient(eg.review tests), obtaining and/or reviewing separately otained hiistory, ordering medications,tests, procedures, referring, communicating with other health day care provider, indepentently interpreting results, counseling the patient and care coordination
[2023-05-24] MEDS: Metoprolol CR 25 MG TABCR PO (09:56)
--- NOTE | 2023-05-24 11:20 | PT.INTREAT ---
Date of service: 05/24/23 Time of Service: 10:09 PT Notes Visit Reasons: Pneumonia Inpatient Physical Therapy Treatment Note [facility] Date: 05/24/23 PRECAUTIONS: Fall, standard, activity as tolerated. SUBJECTIVE: Patient reports feeling pretty good today, although tired. OBJECTIVE: Supine in bed, agreeable to therapy. Bed alarm active. AFTERNOON: Supine in bed, agreeable to therapy. Bed alarm active. Friend present. ? PAIN: none reported VITALS: monitored by nursing staff. AFTERNOON: Patient is not wearing supplemental O2 when this therapist enters, SaO2 85%. Patient's friend reports patient removed O2 to blow her nose, forgot to replace it. SaO2 recovers to 97% in under a minute once supplemental O2 is replaced at 2L/min. SaO2 95% at end of therapy session. ? ? BED MOBILITY/TRANSFERS? Rolling L/R: independent Supine-sit: SBA? Sit-supine: SBA ? Sit-stand: SBA ? Stand-sit: SBA? Bed-Chair: SBA ? Chair-bed: SBA ? Therapeutic Exercises ([id number]): Direct one-on-one instruction in therapeutic exercises to develop strength, endurance, range of motion and flexibility. Ambulation ? Assistive Device: FWW? Weight bearing: full Assist: CGA, wheelchair follow which proved unnecessary. ? Distance:? 550 feet? AFTERNOON: 325 feet? Deviation: kyphotic posture, good step length, adequate toe off, adequate step height. Gait largely unremarkable. Stamina much improved today. ? Stairs: Patient ascends and descends 6 six inch stairs with bilateral handrails, SBA. Reports neither pain nor dyspnea. ? Provided skilled instruction in proper exercise performance Provided skilled manual cues to facilitate proper muscle recruitment and/or form. ASSESSMENT:? Patient decides to sit up in chair at end of treatment session. [place] chair alarm set up and activated. AFTERNOON: Patient returns to bed at end of treatment session. PLAN: continue global strengthening per plan of care until patient is medically cleared for discharge. TREATMENT CODE/TIME: 31 minutes beginning at 10:09 and 14 minutes beginning at 13:12 for a total of 45 minutes today.
--- NOTE | 2023-05-24 11:42 | PDOC.CMPRO ---
Date of service: 05/24/23 Time of Service: 11:43 Care Management Progress Note Progress Note Text Progress Note Text: S/O:Jenifer was lying in bed when CM met with her. She was very drowsy and not very talkative. While CM was with her a visitor arrived who brought Jered decorations and was able to engage her more in conversation. Jenifer has been afebrile for the past 24 hours and is slowly improving. Both her oxygenation and mentation are better.Jenifer also did well with PT and was able to ambulate with just standby assist. A: Jenifer is a 77 year old woman admitted on 05/17/23 with pneumonia P:Jenifer will likely be discharged home with new home health services for PT. She will follow up with her PCP and plan of care and transport with friend/family. CM will follow and continue to assess for discharge needs.
--- NOTE | 2023-05-24 17:07 | PHA.REVIEW2 ---
Pharmacy Admission Review Admission Clinical Review Admission Pharmacy Review: Discharge planning issues (Acute) DVT prophylaxis (Acute) Acute blood loss anemia (Acute) Retroperitoneal bleed (Acute) Delirium (Acute) Acute hypoxemic respiratory failure (Acute) Severe sepsis (Acute) Pneumonia (Acute) Sepsis (Acute) Acute hypoxemic respiratory failure (Acute) bupropion Allergy (Severe, Unverified 05/17/23 16:57) Anaphylaxis Penicillins Allergy (Mild, Unverified 05/17/23 16:57) Large local reaction from IM injection codeine Adverse Reaction (Mild, Unverified 05/17/23 16:57) Constipation lisinopril Adverse Reaction (Mild, Unverified 05/17/23 16:57) Cough erythromycin base Adverse Reaction (Unverified 05/17/23 16:57) hydrochlorothiazide Adverse Reaction (Verified 05/17/23 16:57) Vertigo; Dry eyes Resuscitation Status Full Code Height 5 ft 1 in Weight 58.9 kg Pharmacy Admission Review Renal Dosing Renal Dosing: BUN 17 mg/dL (7-18) 05/24/23 06:15 BUN Cancelled 05/24/23 06:15 Creatinine 1.2 mg/dL (0.55-1.02) H 05/24/23 06:15 Creatinine Cancelled 05/24/23 06:15 Medications needing adjustments: Reviewed (CrCl 33.41) List of meds needing interventions: Meds okay, monitor for worsening kidney function. If CrCl drops under 30 will need to discontinue the Nucynta. Anticoagulation Anticoagulation: Hgb 8.8 g/dL (11.2-15.7) L 05/24/23 06:15 Hct 25.6 % (36.0-46.0) L 05/24/23 06:15 Plt Count 288 10^3/uL (130-400) 05/24/23 06:15 Creatinine 1.2 mg/dL (0.55-1.02) H 05/24/23 06:15 Creatinine Cancelled 05/24/23 06:15 DVT Prophylaxis: N/A (Contraindicated due to retroperitoneal hemorrhage. Does have order for SCDs.) Relevant Labs Relevant Labs: Sodium 135 mmol/L (136-145) L 05/24/23 06:15 Sodium Cancelled 05/24/23 06:15 Potassium 3.6 mmol/L (3.5-5.1) 05/24/23 06:15 Potassium Cancelled 05/24/23 06:15 Chloride 99 mmol/L (98-107) 05/24/23 06:15 Chloride Cancelled 05/24/23 06:15 Magnesium 1.8 mg/dL (1.8-2.4) 05/24/23 06:15 Magnesium Cancelled 05/24/23 06:15 C-Reactive Protein 14.87 mg/dL (0.0-0.3) H 05/24/23 06:15 Electrolytes, C-Reactive P, ESR: Reviewed (CRP slightly decreased from 18.82 to 14.87. Na 135, has been consistently low.) Cardiac Review BP, HR, EF%: Reviewed (BP 152/82, HR 95) QTc Review QTc: Reviewed (No EKG in patients profile) IV to PO Switch IV Medications: Reviewed Home Meds Home Med List reviewed: Reviewed Current Meds Current Medication Order Review: Reviewed Pharmacy Antibiotic Review Relevant Labs: Relevant Labs 05/24/23 06:15 C-Reactive Protein 14.87 H Pharmacy Antibiotic Activity: 48 hour review and C/S review Comments: Currently on day 5 of levofloxacin 500mg q24h. Blood cultures show no growth. WBC are now WNL, has been afebrile since yesterday (elevated temp of 37.8 at 1525). CRP trending down
[2023-05-24] MEDS: levoFLOXacin 500 MG/100 ML BAG 100 MG IVPB (20:11)
[2023-05-25] VITALS (8 sets, daily range): BP systolic 134–164; BP diastolic 75–99; PULSE 88–96; RESP 9–20; TEMP 36.5–37.2; O2SAT 91–96
[2023-05-25 07:05] LABS: Abs Immature Grans 0.37 10^3/uL (0.0-0.06); Absolute Basophil Count 0.05 10^3/uL (0.0-0.2); Absolute Eosinophil Count 0.29 10^3/uL (0.0-0.7); Absolute Lymphocyte Count 1.31 10^3/uL (1.2-3.4); Absolute Monocyte Count 0.78 10^3/uL (0.1-0.8); Basophils % 0.4; Eosinophils % 2.3; HCT 28.3 % (36.0-46.0); HGB 9.5 g/dL (11.2-15.7); Immature Grans % 2.9; Lymphocytes % 10.4; MCH 29.8 pg (27.0-33.0); MCHC 33.6 % (32.0-36.0); MCV 89 fL (80-95); MPV 10.1 fL (8.0-11.0); Monocytes % 6.2; Neutrophils % 77.8; Platelet Count 339 10^3/uL (130-400); RBC 3.19 10^6/uL (3.93-5.22); RDW 13.3 % (11.7-14.6); RDW-SD 43.6 fL; WBC 12.58 10^3/uL (4.4-10.8)
[2023-05-25 07:11] LABS: Absolute Neutrophil Count 9.79 10^3/uL (1.2-6.7)
[2023-05-25 07:22] LABS: Anion Gap 7.8 mmol/L (3-11); BUN 19 mg/dL (7-18); CO2 29.2 mmol/L (21.0-32.0); CREATININE 1.2 mg/dL (0.55-1.02); Calcium 9.3 mg/dL (8.5-10.1); Chloride 98 mmol/L (98-107); Estimated GFR 47.21 (mL/min/1.73m2); Glucose 111 mg/dL (74-106); Magnesium 1.8 mg/dL (1.8-2.4); Potassium 4.1 mmol/L (3.5-5.1); Sodium 135 mmol/L (136-145)
[2023-05-25 07:34] LABS: C-Reactive Protein 12.33 mg/dL (0.0-0.3)
[2023-05-25] MEDS: Losartan 50 MG TAB 100 MG PO (07:49)
[2023-05-25] MEDS: Atorvastatin 40 MG TAB PO (07:49)
[2023-05-25] MEDS: Famotidine 20 MG TAB PO (07:49)
[2023-05-25] MEDS: guaiFENesin 600 MG TABCR PO ×2 (07:49→20:00)
[2023-05-25] MEDS: Metoprolol CR 50 MG TABCR 100 MG PO (07:49)
[2023-05-25 07:57] LABS: Procalcitonin 0.3 ng/mL
[2023-05-25] MEDS: Albuterol/Ipratropium 3 ML UPD VIAL UPD ×3 (08:33→16:30)
[2023-05-25] MEDS: Normal Saline Flush 10 ML SYR IVP ×3 (10:59→20:02)
--- NOTE | 2023-05-25 11:41 | PTTR_ITS ---
Date of service: 05/25/23 Time of Service: 11:28 PT Notes Visit Reasons: Pneumonia Inpatient Physical Therapy Treatment Note [facility] Date: 05/25/23 PRECAUTIONS: Fall, standard, activity as tolerated. SUBJECTIVE: Patient reports feeling depressed today. States that she feels like she isn't ever going to get out of the hospital, and that she has been here forever. AFTERNOON: patient has had several visitors today and reports being in better spirits. Eager to get home to her cat. Would like to be able to move around in her room independently, especially to go to the bathroom. OBJECTIVE: sidelying in bed. Nasal cannula in place supplementing 2L/min O2. Agreeable to therapy. AFTERNOON: Supine in bed, agreeable to therapy. Nasal cannula supplementing O2 at 2L minute. ? PAIN: none reported. VITALS: Monitored by nursing staff. ? ? ? BED MOBILITY/TRANSFERS? Rolling L/R: independent Supine-sit: independent ? Sit-supine: independent ? Sit-stand: independent ? Stand-sit: independent ? Bed-Chair: SBA ? Chair-bed: SBA ? Therapeutic Exercises ([id number]): Direct one-on-one instruction in therapeutic exercises to develop strength, endurance, range of motion and flexibility. Ambulation ? Assistive Device: 4ww? Weight bearing: full Assist: SBA ? Distance:? 600 feet ? AFTERNOON: 900 feet, short stops and starts as well as quick turns to challenge patients balance. ? Deviation: slightly stooped posture, adequate step height, adequate toe off, symmetric step length. Drew reece's visitor reports that patient's nico is still not at her baseline, patient chuckles and agrees that she is typically a race-walker. ? Provided skilled instruction in proper exercise performance Provided skilled manual cues to facilitate proper muscle recruitment and/or form. ASSESSMENT:? Patient tolerates therapy well, reports no SOB, no LOB, no pain. Reports feeling better, emotionally, to get out of her room. PLAN: Continue global strengthening per plan of care until patient is medically cleared for discharge. TREATMENT CODE/TIME: 12 minutes beginning at 11:28 and 31 minutes beginning at 14:15 for a total of 43 minutes today.
--- NOTE | 2023-05-25 14:02 | CMPROGNOTE_ITS ---
Date of service: 05/25/23 Time of Service: 14:02 Care Management Progress Note Progress Note Text Progress Note Text: Jenifer will likely be discharged home with new home health services for PT; CM notified [facility] of pending orders. She will follow up with her PCP and plan of care and transport with friend/family. CM will follow and continue to assess for discharge needs.
[2023-05-25] MEDS: levoFLOXacin 500 MG/100 ML BAG 100 MG IVPB (15:45)
--- NOTE | 2023-05-25 15:55 | W.PM.PROGNOT ---
Date of Service Date of service: 05/25/23 Time of Service: 15:56 Assessment and Plan Assessment and plan (1) Severe sepsis: Status: Acute Assessment and plan: Due to Legionella penumonia, present on admission. Continue levofloxacin (day 6). Defervesced entirely. CRP and procalcitonin are better. WBC is a little worse today, but it does not seem to be related to her pneumonia. We need to consider other sources of the leucocytosis should it continue to worsen tomorrow. For now, continue levofloxacin. (2) Pneumonia: Status: Acute Assessment and plan: As above Qualifiers: Pneumonia type: due to unspecified organism Laterality: left Lung location: upper lobe of lung Qualified Code(s): J18.9 - Pneumonia, unspecified organism (3) Acute hypoxemic respiratory failure: Status: Acute Assessment and plan: In setting of Legionella pneumonia. Down to 1L of O2 by NC today. Continue levofloxacin. Encourage pulmonary toilet. Wean O2 as tolerated. Does have bilateral pleural effusions, but they appear too small to tap. PE ruled out. (4) Delirium: Status: Resolved Assessment and plan: I feel the patient is at her baseline today. Delirium was likely due to toxic metabolic encephalopathy due to pneumoia. (5) Acute blood loss anemia: Status: Acute Assessment and plan: In setting of an acute retroperitoneal hemorrhage. H/H remains stable. Required a transfusion of 2 units pRBCs. Continue to monitor H/H. (6) Retroperitoneal bleed: Status: Acute Assessment and plan: As above Written for prn nucynta for the back pain due to this. Perhaps this is the cause of her leucocytosis. (7) Hyperlipidemia: Status: Chronic Assessment and plan: Continue atorvastatin (8) Essential hypertension: Status: Chronic Assessment and plan: Continue losartan, Toprol-XL (I am increasing dose of toprol XL). (9) DVT prophylaxis: Status: Acute Assessment and plan: SCDs. Chemical DVT ppx is contraindicated in setting of retroperitoneal hemorrhage (10) Discharge planning issues: Status: Acute Assessment and plan: Full code Palliative care consulted. Ancitipate discharge home in 24-48 hrs Subjective Subjective Interval history since last seen: Ms Montes is feeling better. She states her cough is almost gone. She denies dizziness, CP, SOB (and remarks how her breathing is better), denies n/v. She feels like her brain is more back to normal. She is on 1L of O2 saturating 91% at this time. She feels depressed. She is missing her long-haired yancey-white cat Mel and the cat is missing her. She would like to go home soon. Exam Narrative Exam Narrative: General: A very pleasant elderly female who is A&Ox3, is a lot more alert and engaged appropriately in conversation today than even yesterday HEENT: EOMI, MMM Heart: RRR, no m/r/g Lungs: CTAB Abdomen: soft, nontender, nondistended Extremities: no e/c/c BLEs, 1+ pedal pulses B Objective Last Vital Signs Temp 36.6 C 05/25/23 15:05 Pulse 95 H 05/25/23 15:05 Resp 13 05/25/23 15:05 BP 146/78 H 05/25/23 15:05 Pulse Ox 91 L 05/25/23 15:05 Laboratory Results - last 24 hr 05/25/23 06:35 WBC 12.58 H RBC 3.19 L Hgb 9.5 L Hct 28.3 L MCV 89 MCH 29.8 MCHC 33.6 RDW 13.3 Plt Count 339 MPV 10.1 Immature Gran % 2.9 Neutrophils % 77.8 Lymphocytes % 10.4 Monocytes % 6.2 Eosinophils % 2.3 Basophils % 0.4 Nucleated RBC % 0.0 Absolute Neutrophils 9.79 H Absolute Lymphocytes 1.31 Absolute Monocytes 0.78 Absolute Eosinophils 0.29 Absolute Basophils 0.05 Sodium 135 L Potassium 4.1 Chloride 98 Carbon Dioxide 29.2 Anion Gap 7.8 BUN 19 H Creatinine 1.2 H Est GFR (CKD-EPI 2020) 47.21 Glucose 111 H Calcium 9.3 Magnesium 1.8 C-Reactive Protein 12.33 H Procalcitonin 0.3 PAWSS Have you Been Recently Intoxicated or Drunk Within the Last 30 days?: No Have you Ever Experienced Previous Episodes of Alcohol Withdrawal?: No Have you ever Experienced Withdrawal Seizures?: No Have you ever Experienced Delirium Tremens(DT)s?: No Have you ever undergone Alcohol Rehabilitation Treatment (i.e, inpt ot outpatient treatment programs)?: No Have you ever Experienced Blackouts?: No Have you ever Combined Alcohol with other Downers within the last 90 days?: No Have you ever Combined Alcohol with any other Substance of Abuse during the last 90 days?: No Positive Blood Alcohol level on Presentation? [PCS.BAL]: No Evidence of Increased Autonomic Activity (i.e. HR>120, tremor, sweating, agitation, nausea)?: No Result: 0 Time Spent with Patient Time Spent with Patient: 25-34 minutes Time was spent: preparing to see the patient(eg.review tests), obtaining and/or reviewing separately otained hiistory, ordering medications,tests, procedures, referring, communicating with other health manager urgent care, indepentently interpreting results, counseling the patient and care coordination
--- NOTE | 2023-05-25 17:05 | CHAPLAIN ---
Jenifer was much cleared than the last time I visited her, last week. She said she was told today that she likely had Legionnaires' Disease from spending time in a faulty hot tub. A friend, who was in the hot tub at the same time) has been hospitalized (in a different hospital) with similar symptoms. Jenifer said she was told she was hallucinating and she's glad she doesn't remember that. She hopes to go home in the next few days. Her daughter, a nurse who works at [employer], lives right next door to Jenifer and will be helping her out. Jenifer was very pleasant, and seems relieved to know that the worst is over.
[2023-05-25] MEDS: clonazePAM 0.5 MG TAB PO (20:22)
[2023-05-26] VITALS (45 sets, daily range): BP systolic 120–139; BP diastolic 67–76; PULSE 81–112; RESP 2–22; TEMP 36.6–37.4; O2SAT 82–97
--- NOTE | 2023-05-26 | DI.US_ITS ---
Exam(s) US UPPER EXTREMITY VENOUS LT EXAM: US UPPER EXTREMITY VENOUS LT CLINICAL HISTORY: PICC line in place, concern for DVT. Leucocytosis. TECHNIQUE: Ultrasound examination of the left upper extremity venous system(s) is performed using gr ayscale, color-flow, and spectral Doppler analysis. COMPARISON: No exams were available for comparison FINDINGS: The left internal jugular, axillary, subclavian, cephalic, brachial, radial, and ulnar veins are rico nt without evidence of thrombosis. Thrombus visible in the distal basilic vein. PICC line noted in subclavian through basilic vein. Suboptimal flow in distal basilic vein with question of thrombus. IMPRESSION: PICC line seen in basilic vein through subclavian vein. Question of thrombus in distal basilic vein. DATA REPOSITORY:
[2023-05-26] MEDS: Albuterol/Ipratropium 3 ML UPD VIAL UPD ×5 (02:00→19:49)
[2023-05-26 07:08] LABS: Abs Immature Grans 0.36 10^3/uL (0.0-0.06); Absolute Eosinophil Count 0.26 10^3/uL (0.0-0.7); Absolute Lymphocyte Count 1.44 10^3/uL (1.2-3.4); Absolute Neutrophil Count 11.17 10^3/uL (1.2-6.7); Basophils % 0.4; Eosinophils % 1.8; HCT 25.9 % (36.0-46.0); HGB 8.7 g/dL (11.2-15.7); Immature Grans % 2.5; Lymphocytes % 10.1; MCH 29.8 pg (27.0-33.0); MCHC 33.6 % (32.0-36.0); MCV 89 fL (80-95); Monocytes % 6.9; Neutrophils % 78.3; Platelet Count 346 10^3/uL (130-400); RBC 2.92 10^6/uL (3.93-5.22); RDW-SD 42.5 fL; WBC 14.27 10^3/uL (4.4-10.8)
[2023-05-26 07:16] LABS: Absolute Basophil Count 0.06 10^3/uL (0.0-0.2); Absolute Monocyte Count 0.98 10^3/uL (0.1-0.8)
[2023-05-26 07:28] LABS: Anion Gap 8.3 mmol/L (3-11); BUN 19 mg/dL (7-18); CO2 28.7 mmol/L (21.0-32.0); CREATININE 1.3 mg/dL (0.55-1.02); Calcium 8.9 mg/dL (8.5-10.1); Chloride 101 mmol/L (98-107); Estimated GFR 42.88 (mL/min/1.73m2); Glucose 105 mg/dL (74-106); Magnesium 1.8 mg/dL (1.8-2.4); Potassium 3.8 mmol/L (3.5-5.1); Sodium 138 mmol/L (136-145)
[2023-05-26] MEDS: Losartan 50 MG TAB 100 MG PO (08:00)
[2023-05-26] MEDS: guaiFENesin 600 MG TABCR PO ×2 (08:00→20:54)
[2023-05-26] MEDS: Metoprolol CR 50 MG TABCR 100 MG PO (08:00)
[2023-05-26] MEDS: Atorvastatin 40 MG TAB PO (08:01)
[2023-05-26] MEDS: Normal Saline Flush 10 ML SYR IVP ×2 (08:01→15:41)
[2023-05-26] MEDS: Famotidine 20 MG TAB PO (08:01)
[2023-05-26 08:24] LABS: Lab Add On Test COMPLETED
[2023-05-26 08:25] LABS: Bilirubin Negative (Negative); Blood Negative (Negative); Clarity Clear (Clear); Glucose Negative (Negative); Ketones Negative (Negative); Leukocyte Esterase Negative (Negative); Nitrite Negative (Negative); Specific Gravity 1.025 (1.005-1.025); Urobilinogen 0.2 mg/dL (Up to 0.2); pH 7.5 (5-8)
[2023-05-26 08:31] LABS: RBC 0-2 HPF (0-2); WBC 0-2 HPF (0-5)
[2023-05-26 08:32] LABS: Bacteria Rare HPF (Negative); C & S Indicated? No; Casts 0-2 Coarse Granular LPF (Negative); Crystals Negative HPF (Negative); Epithelial Cells Rare HPF (Negative); Mucus Trace (Negative)
[2023-05-26 08:33] LABS: C-Reactive Protein 7.93 mg/dL (0.0-0.3)
[2023-05-26 08:53] LABS: Procalcitonin 0.2 ng/mL
--- NOTE | 2023-05-26 09:15 | PTTR_ITS ---
Date of service: 05/26/23 Time of Service: 08:53 PT Notes Visit Reasons: Pneumonia Inpatient Physical Therapy Treatment Note [facility] Date: 05/26/23 PRECAUTIONS: Fall, standard, activity as tolerated. SUBJECTIVE: Patient reports feeling much better than she has been. Appears in good spirits. OBJECTIVE: Supine in bed, agreeable to therapy. ? PAIN: none reported VITALS: monitored by nursing staff ? ? BED MOBILITY/TRANSFERS? Rolling L/R: Independent Supine-sit: Independent ? Sit-supine: Independent ? Sit-stand: Independent ? Stand-sit: Independent ? Bed-Chair: Independent ? Chair-bed: Independent Neuromuscular Re-education ([id number]): Activities that facilitate re-education of movement balance, posture, coordination, and proprioception or kinesthetic sense, requiring skilled tactile and verbal cues ? Exercises/techniques: * ambulate 600 feet without AD with CGA at gait belt for dynamic standing balance. Patient weaves side to side in romelia vargas that she is not experi encing ETOH intoxication. * Incorporate head turns / gaze shifting with ambulation * 4 square balance exercise x6 * static standing in Romberg stance for 10 seconds x2 * static standing in semi-tandem stance for 10 seconds with right leg forward x2. Patient only able to maintain for 5 seconds with left leg forward, x3. ASSESSMENT:? Patient tolerates therapy well, c/o some fatigue after session. PLAN: Continue global strengthening per plan of care until patient is medically cleared for discharge. Recommend using 4ww at home, patient is in agreement. Patient already owns a 4ww. TREATMENT CODE/TIME: 20 minutes beginning at 8:53
[2023-05-26] MEDS: levoFLOXacin 500 MG/100 ML BAG 100 MG IVPB (15:42)
--- NOTE | 2023-05-26 15:46 | PT.INPN ---
PT Notes Visit Reasons: Pneumonia Physical Therapy Inpatient Progress Note Date: 05/26/2023 Dates of Service: 05/19/2023 through 05/26/2023 Referring Doctor: Keo Najera MD PT Orders: PT CONSULT: Eval/Treat Precautions: Fall. Standard. Activity as tolerated. Patient Profile/Admitting Diagnosis: Jenifer is a 77-year-old female admitted for management of severe sepsis, pneumonia, acute hypoxemic respiratory failure, hyperlipidemia, and essential hypertension. Subjective: Feels that everybody here has given her the best care thus far. Adds that she will miss everybody when she goes home. Denies shortness of breath during today's walk. Objective: General Observation: Resting in bed. Telemetry monitoring in place. Now on room air. Mental Status: Alert and oriented as to person and purpose. Able to pay attention, focus, and respond appropriately. Pain: Denies Vital Signs: O2 saturation at 94% on RA; 88% wth walking then resaturated back up to 92% on RA ROM: Right Upper Extremity: Shoulder Flexion WFL. Shoulder abduction WFL. Elbow flexion WFL. Wrist flexion WFL. Functional opening and closing of hand WFL. Left Upper Extremity: Shoulder Flexion WFL. Shoulder abduction WFL. Elbow flexion WFL. Wrist flexion WFL. Functional opening and closing of hand WFL. Right Lower Extremity: Hip flexion WFL. Hip abduction WFL. Knee flexion WFL. Ankle dorsiflexion WFL. Ankle plantarflexion WFL. Left Lower Extremity: Hip flexion WFL. Hip abduction WFL. Knee flexion WFL. Ankle dorsiflexion WFL. Ankle plantarflexion WFL. Strength: Right Upper Extremity: Shoulder flexors 4/5. Shoulder abductors 4/5. Elbow flexors 4/5. Elbow extensors 4/5. Pheresis Specialist strong. Left Upper Extremity: Shoulder flexors 4/5. Shoulder abductors 4/5. Elbow flexors 4/5. Elbow extensors 4/5. Pheresis Specialist strong. Right Lower Extremity: Hip flexors 4/5. Hip abductors 4/5. Knee flexors 5/5. Knee extensors 4/5. Ankle dorsiflexors 4/5. Ankle plantarflexors 4/5. Left Lower Extremity: Hip flexors 4/5. Hip abductors 4/5. Knee flexors 5/5. Knee extensors 4/5. Ankle dorsiflexors 4/5. Ankle plantarflexors 4/5. Bed Mobility/Transfers: Minimal cues provided for directions only Sit to stand independent without AD Stand to sit independent without AD Bed to reclining chair independent without AD Reclining chair to bed independent without AD Gait: Supervision for 300 feet using no AD with oxygen saturation low of 88% and high of 92% on RA. No report of lightheadedness nor shortness of breath throughout. Mild path deviation but no loss of balance. Balance: Static Sitting: Normal Dynamic Sitting: Normal Static Standing: Good Dynamic Standing: Fair Special Tests: Mobility Limitations Standardized Measure [facility] AM-PAC 6 clicks Basic Mobility Inpatient Short Form: Raw Score: 24 CMS Score: 0% deficit 30-second chair rise score: 7x Informed Consent/Education: Patient was instructed in purpose of PT consult and plan of care. Agreeable to proceed with established PT POC to achieve personal goals. ASSESSMENT: Patient has been able to manage distances of more than 150 feet without AD and without desaturation during today's session. Appeared more stable in standing and during walking compared to day of evalaution. Still has minimal word-finding difficulty and some short-term memory deficit, unsure if this is her baseline cognitive level. May do better cognitively and functionally at home. Patient presents with clinical signs and symptoms consistent with current/admitting diagnoses that have resulted to mobility limitations, gait instability, generalized weakness, and overall ADL decline as demonstrated by the following impairment level findings: 1. Decreased strength to B UE/LE major muscle groups 2. Impaired sitting/standing balance Impairments are contributing to the following functional limitations: 1. Difficulty with ambulation without assistive device and physical assistance 2. Increased completion time for mobility ADL performance Patient is assessed as a [id number] low complexity based on the following: History: 77-year-old female with past medical history as indicated above Examination: Demonstrable impairment in strength, balance, and mobility level with underlying impairments and functional limitations as exhibited above as well as deficit score of 21% utilizing the [facility] Mobility Inpatient Short Form Presentation: Evolving Decision Makin low complexity Goals: Goals X1 week 1. Supine-Sit independent MET, DISCONTINUE 2. Sit-Supine independent MET, DISCONTINUE 3. Sit-Stand independent MET, DISCONTINUE 4. Stand-Sit independent with 4WW MET, DISCONTINUE 5. Bed-Chair independent with 4WW MET, DISCONTINUE 6. Chair-Bed independent with 4WW MET, DISCONTINUE 7. Independent gait on level surface with use of 4WW for at least 300 feet without report of pain nor dyspnea NOT MET, CONTINUE 8. Good static and dynamic standing balance/tolerance NOT MET, CONTINUE Plan of Care/Treatment Plan: 1-2x/day, 7 days/week x 1 week. Plan of care has been reviewed with the SENIOR PRODUCTION SUPERVISOR providing the service under Physical Therapy direction. PROGRESS physical Therapy intervention for pain management as needed, strengthening, bed mobility, transfers, gait, stairs, balance training, and use of assistive device. DISCHARGE RECOMMENDATIONS: [] Home with no services [] [X] Home with services. Patient will benefit from home health PT services in order to progress mobility level using least restrictive assistive ambulatory device, assess home safety, identify additional equipment needs, and establish a functional maintenance program that will increase ability of patient to remain at home. [] Home with outpatient PT [] [] SNF for continued rehabilitation [] [] Ppa Teacher Care [] [] SNF versus LTC based on ability to participate and progress [] TREATMENT CODE/TIME: [id number] x 24 minutes for 1 unit beginning at 15:18 PM. Thank you for the opportunity to participate in the care of this patient. Nellie Plasencia PT, DPT, CLT [facility] [place], [place]
--- NOTE | 2023-05-26 16:28 | PDOC.CMDIS ---
Date of service: 05/26/23 Time of Service: 16:29 LACE Index Scoring Tool Questions: Length of Stay (in days): 7 - 13 Was the patient admitted via the E.D.?: Yes Comorbidities: Chronic Pulmonary Disease E.D. Visits: 1 Answers: Total Score: 11 Risk of Readmission: High Risk Care Management Discharge Plan Reason for Hospitalization: Pneumonia Discharge Plan: Jenifer will discharge home with new home health services for PT; CM notified [facility] of pending orders, she already has FWW. She will follow up with her PCP and plan of care and transport with friend/family. Patient/Family Education Needs: Review discharge instructions, discuss Ask Me Three. Services Needed at Discharge: Home Health Care Services
--- NOTE | 2023-05-26 17:10 | W.PM.PROGNOT ---
Date of Service Date of service: 05/26/23 Time of Service: 17:11 Assessment and Plan Assessment and plan (1) Severe sepsis: Status: Acute Assessment and plan: Due to Legionella penumonia, present on admission. Continue levofloxacin (day 12/28). Switch to PO levofloxacin. Defervesced entirely. CRP and procalcitonin are better. Leucocytosis not related to this but is related to the L basilic vein thrombosis. For now, continue levofloxacin. (2) Pneumonia: Status: Acute Assessment and plan: As above Qualifiers: Pneumonia type: due to unspecified organism Laterality: left Lung location: upper lobe of lung Qualified Code(s): J18.9 - Pneumonia, unspecified organism (3) Acute hypoxemic respiratory failure: Status: Acute Assessment and plan: In setting of Legionella pneumonia. On RA now but did have O2 requirement while sleeping. Will monitor on continuous pulse ox overnight. Continue levofloxacin. Encourage pulmonary toilet. Does have bilateral pleural effusions, but they appear too small to tap. PE ruled out. (4) Acute thrombosis of left basilic vein: Status: Acute Assessment and plan: Associated with a PICC line. D/c PICC. Elevate extremity and apply warm compresses. Not a candidate for NSAIDs or anticoagulation due to the retroperitoneal hemorrhage. (5) Delirium: Status: Resolved Assessment and plan: I feel the patient is at her baseline today. Delirium was likely due to toxic metabolic encephalopathy due to pneumoia. (6) Acute blood loss anemia: Status: Acute Assessment and plan: In setting of an acute retroperitoneal hemorrhage. H/H remains stable. Required a transfusion of 2 units pRBCs. Continue to monitor H/H. (7) Retroperitoneal bleed: Status: Acute Assessment and plan: As above Written for prn nucynta for the back pain due to this. Perhaps this is the cause of her leucocytosis. (8) Hyperlipidemia: Status: Chronic Assessment and plan: Continue atorvastatin (9) Essential hypertension: Status: Chronic Assessment and plan: Continue losartan, Toprol-XL (I am increasing dose of toprol XL). (10) DVT prophylaxis: Status: Acute Assessment and plan: SCDs. Chemical DVT ppx is contraindicated in setting of retroperitoneal hemorrhage (11) Discharge planning issues: Status: Acute Assessment and plan: Full code Palliative care consulted. Ancitipate discharge home tomorrow Subjective Subjective Interval history since last seen: Ms Montes states that she is feeling like cr*p but that her breathing is better. She would like to take a shower and wash her hair. She wants to go home. Today she is on RA, but last night she desaturated to 82% on RA and had to have oxygen re-applied. She continues to report hip/back pain, which is chronic. No dizziness, CP, SOB, n/v. Reports feeling depressed. Not interested in an antidepressant. It sounds like she has not had good luck with psychotherapy, but I encouraged her to keep looking for a therapist. We did speak in presence of her daughter about her pets (cat Mel and a hilda called Storden). She is looking forward to going home hopefully tomorrow. Exam Narrative Exam Narrative: General: A very pleasant elderly female who is A&Ox3, is a lot more alert and engaged appropriately in conversation today than even yesterday HEENT: EOMI, MMM Heart: RRR, no m/r/g Lungs: CTAB Abdomen: soft, nontender, nondistended Extremities: no e/c/c BLEs, 1+ pedal pulses B; LUE w/ a PICC line and no obvious swelling or erythema Objective Last Vital Signs Temp 37.4 C 05/26/23 15:47 Pulse 104 H 05/26/23 15:47 Resp 18 05/26/23 15:47 BP 120/67 05/26/23 15:47 Pulse Ox 94 05/26/23 15:47 Laboratory Results - last 24 hr 05/26/23 05/26/23 05/26/23 06:20 08:20 08:23 WBC 14.27 H RBC 2.92 L Hgb 8.7 L Hct 25.9 L MCV 89 MCH 29.8 MCHC 33.6 RDW 13.0 Plt Count 346 MPV 10.0 Immature Gran % 2.5 Neutrophils % 78.3 Lymphocytes % 10.1 Monocytes % 6.9 Eosinophils % 1.8 Basophils % 0.4 Nucleated RBC % 0.0 Absolute Neutrophils 11.17 H Absolute Lymphocytes 1.44 Absolute Monocytes 0.98 H Absolute Eosinophils 0.26 Absolute Basophils 0.06 Sodium 138 Potassium 3.8 Chloride 101 Carbon Dioxide 28.7 Anion Gap 8.3 BUN 19 H Creatinine 1.3 H Est GFR (CKD-EPI 2020) 42.88 Glucose 105 Calcium 8.9 Magnesium 1.8 C-Reactive Protein 7.93 H Procalcitonin 0.2 Urine Color Yellow Urine Clarity Clear Urine pH 7.5 Ur Specific [place] 1.025 Urine Protein 30 H Urine Ketones Negative Urine Blood Negative Urine Nitrite Negative Urine Bilirubin Negative Urine Urobilinogen 0.2 Ur Leukocyte Esterase Negative Urine RBC 0-2 Urine WBC 0-2 Ur Epithelial Cells Rare Urine Crystals Negative Urine Bacteria Rare Urine Casts 0-2 Coarse Granular Urine Mucus Trace Ur Culture Indicated? No Urine Glucose Negative Add-On Test Request COMPLETED Objective Narrative Objective Narrative: Venous doppler LUE: PICC line seen in basilic vein through subclavian vein. Question of thrombus in distal basilic vein. PAWSS Have you Been Recently Intoxicated or Drunk Within the Last 30 days?: No Have you Ever Experienced Previous Episodes of Alcohol Withdrawal?: No Have you ever Experienced Withdrawal Seizures?: No Have you ever Experienced Delirium Tremens(DT)s?: No Have you ever undergone Alcohol Rehabilitation Treatment (i.e, inpt ot outpatient treatment programs)?: No Have you ever Experienced Blackouts?: No Have you ever Combined Alcohol with other Downers within the last 90 days?: No Have you ever Combined Alcohol with any other Substance of Abuse during the last 90 days?: No Positive Blood Alcohol level on Presentation? [PCS.BAL]: No Evidence of Increased Autonomic Activity (i.e. HR>120, tremor, sweating, agitation, nausea)?: No Result: 0 Time Spent with Patient Time Spent with Patient: 35-49 minutes Time was spent: preparing to see the patient(eg.review tests), obtaining and/or reviewing separately otained hiistory, ordering medications,tests, procedures, referring, communicating with other health care transport nurse, indepentently interpreting results, counseling the patient and care coordination
[2023-05-27] VITALS (12 sets, daily range): BP systolic 120–153; BP diastolic 67–77; PULSE 85–102; RESP 9–16; TEMP 36.7–37.4; O2SAT 88–96
[2023-05-27 07:02] LABS: Abs Immature Grans 0.32 10^3/uL (0.0-0.06); Absolute Monocyte Count 1.29 10^3/uL (0.1-0.8); Basophils % 0.3; Eosinophils % 1.3; HCT 26.9 % (36.0-46.0); Immature Grans % 1.9; Lymphocytes % 9.9; MCH 29.3 pg (27.0-33.0); MCHC 33.1 % (32.0-36.0); MCV 89 fL (80-95); MPV 9.7 fL (8.0-11.0); Monocytes % 7.5; Neutrophils % 79.1; Platelet Count 399 10^3/uL (130-400); RBC 3.04 10^6/uL (3.93-5.22); RDW 13.1 % (11.7-14.6); RDW-SD 42.3 fL; WBC 17.21 10^3/uL (4.4-10.8)
[2023-05-27 07:05] LABS: Absolute Basophil Count 0.05 10^3/uL (0.0-0.2); Absolute Eosinophil Count 0.22 10^3/uL (0.0-0.7); Absolute Neutrophil Count 13.61 10^3/uL (1.2-6.7)
[2023-05-27 07:06] LABS: HGB 8.9 g/dL (11.2-15.7)
[2023-05-27 07:23] LABS: Anion Gap 7.7 mmol/L (3-11); BUN 19 mg/dL (7-18); C-Reactive Protein 5.89 mg/dL (0.0-0.3); CO2 27.3 mmol/L (21.0-32.0); CREATININE 1.3 mg/dL (0.55-1.02); Calcium 9.2 mg/dL (8.5-10.1); Chloride 102 mmol/L (98-107); Estimated GFR 42.88 (mL/min/1.73m2); Glucose 110 mg/dL (74-106); Magnesium 1.9 mg/dL (1.8-2.4); Sodium 137 mmol/L (136-145)
[2023-05-27] MEDS: Famotidine 20 MG TAB PO (08:37)
[2023-05-27] MEDS: Metoprolol CR 50 MG TABCR 100 MG PO (08:37)
[2023-05-27] MEDS: Atorvastatin 40 MG TAB PO (08:37)
[2023-05-27] MEDS: Losartan 50 MG TAB 100 MG PO (08:37)
[2023-05-27] MEDS: guaiFENesin 600 MG TABCR PO (08:37)
[2023-05-27] MEDS: Albuterol/Ipratropium 3 ML UPD VIAL UPD ×3 (08:41→15:25)
--- NOTE | 2023-05-27 14:31 | PT.INTREAT ---
Date of service: 05/27/23 Time of Service: 14:10 PT Notes Visit Reasons: Pneumonia Inpatient Physical Therapy Treatment Note [facility] Date: 05/27/23 PRECAUTIONS: Fall, standard, activity as tolerated. SUBJECTIVE: Patient declines therapy this AM, stating that she had a shower and it zapped her. Reports that she needs a nap. Agreeable to this clinician checking back in the afternoon. AFTERNOON: Patient reports that she is still very tired and would like to continue sleeping, then sighs and states well, time to get up I guess. OBJECTIVE: supine in bed, agreeable to therapy.? PAIN: none reported VITALS: monitored by nursing staff? ? BED MOBILITY/TRANSFERS? Rolling L/R: Independent Supine-sit: Independent ? Sit-supine: Independent ? Sit-stand: Independent ? Stand-sit: Independent ? Bed-Chair: Independent ? Chair-bed: Independent ? Therapeutic Exercises ([id number]): Direct one-on-one instruction in therapeutic exercises to develop strength, endurance, range of motion and flexibility. Ambulation ? Assistive Device: 4ww? Weight bearing: full Assist: SBA? Distance:? 900 feet ? Deviation: Gait largely unremarkable, patient able to maintain conversation, does not become short of breath.? Provided skilled instruction in proper exercise performance Provided skilled manual cues to facilitate proper muscle recruitment and/or form. ASSESSMENT:? Patient tolerates therapy well, no report of pain or dyspnea, no LOB. Patient does report that she feels a little unsteady and would prefer to take the walker vs not. PLAN: Continue global strengthening per plan of care until patient is medically cleared for discharge. Focus on balance training. TREATMENT CODE/TIME: 15 minutes beginning at 14:10
--- NOTE | 2023-05-27 15:59 | PDOC.HHF2F_ITS ---
Home Health Referral Home Health Orders Clinical synopsis of why skilled professionals are needed: Ms Montes is a 77 year old female with PMHx of asthma, hypertension, hyperlipidemia, depressive disorder, who was a patient on [facility] hospitalist service from 05/17/23 until 05/27/23 for sepsis due to legionella pneumonia, acute hypoxic respiratory failure (room air O2 sats 89%, was requiring 2L of O2 by NC to saturate in the 90s when she first came back), toxic metabolic encephalopathy. The patient had a negative CT of the head, tested negative for COVID-19, had a CXR revealing multifocal pneumonia. She had evidence of lactic acidosis without shock. She was started on empiric azithromycin, ceftazidime, one time order for vancomycin. Her blood and urine C&S came back negative. When her legionella urine antigen came back positive, she was switched to levofloxacin on 05/20/23. The patient had persistent fevers, finally defervescing after 05/23/23. Her CRP and procalcitonin had continued to decline as would be expected with appropriate treatment of infection.While she does have small bilateral pleural effusions on imaging, they appear too small for thoracenthesis. Her oxygen requirement improved (see below) to RA with occasional desaturations only at night with further workup of nocturnal hypoxia being ordered on discharge. Her mental status returned to baseline. From the standpoint of pneumonia, she has 4 more days of antibiotics to complete. Because of the hypoxic respiratory failure with rising oxygen needs (up to 5L of O2 by NC), a pulmonary embolism had to be ruled out. CT scanner was not functioning, and the patient was started on an empiric heparin drip. CTA chest was finally able to be obtained on 05/20/23 and was negative for a PE. Heparin drip was then discontinued. However, the patient did develop an anemia while on anticoagulation with hemoglobin going down to 6.7 from 11.5 on presentation. The source of her anemia ended up being a spontaneous bilateral retroperitoneal hemorrhage as seen on the CT chest/abdomen/pelvis on 05/22/23. She was transfused 2 units pRBCs with Hgb improving to 8.6 and remaining stable for the duration of her hospitalization. The patient did have a new leucocytosis noted on bloodwork on 05/25/23 after its initial resolution. This did not correlate with the decreasing CRP, procalcitonin, and patient's clinical status, suggesting a non-infectious cause of her leucocytosis. Because she had a PICC line placed for her antibiotics and she was not on chemical DVT prophylaxis due to having a retroperitoneal hemorrhage, a DVT in LUE was considered, and a venous doppler of LUE did confirm a possible basilic vein thrombosis on 05/26/23. Her PICC line was removed and she was switched to oral levofloxacin. This is being treated with elevation of LUE as well as with warm compresses. She is medically stable for discharge home today with home health physical therapy, as per recommendations of PT. She will need to have bloodwork done on 05/31/23 with results going to her PCP, Dr Gibbs. She is being sent home with orders for overnight oximetry. Medical diagnosis necessitation home health referral: Legionella pneumonia Generalized weakness. Physical Therapist: Check all that apply Increase strength & endurance for safe mobility at home: Ordered To design/establish home maintenance program: Ordered Fall reduction therapy program for patient with history of frequent falls: Ordered Home safety evaluation and teaching/gait training including stair management (if applicable): Ordered Home Bound Status Requires the aid of supportive device (check all that apply): Walker Describe why leaving home would require a considerable and taxing effort: Requires frequent rest periods Encounter Date and Reason: I certify that a FTF encounter for this patient was performed on May 27, 2023 and that such encounter was related to the primary reason the patient requires home health services. The encounter was conducted in the following manner: * By me as the certifying physician, HEEL NAILING MACHINE OPERATOR, PA or * By an inpatient physician, HEEL NAILING MACHINE OPERATOR or PA during an inpatient stay who communicated findings to me, Certification And Authentication I certify that I composed the above information based on my clinical judgment relating to this patient's medical condition and, if applicable, clinical findings communicated to me by the NPP or inpatient physician who performed the FTF encounter. Name of Provider that will be monitoring home health services: Dorothy Gibbs
--- NOTE | 2023-05-27 16:00 | W.PM.DS.N ---
Date of service: 05/27/23 Time of Service: 16:03 DS: Diagnosis Discharge Diagnosis (1) Legionella pneumonia: Status: Acute (2) Severe sepsis: Status: Resolved (3) Acute hypoxemic respiratory failure: Status: Resolved (4) Acute thrombosis of left basilic vein: Status: Acute (5) Retroperitoneal bleed: Status: Acute Asessment and Plan: In setting of anticoagulation (6) Leucocytosis: Status: Acute Asessment and Plan: persistent (7) Acute blood loss anemia: Status: Acute (8) Hyperlipidemia: Status: Chronic (9) Essential hypertension: Status: Chronic (10) Constipation: Status: Acute (11) Nocturnal hypoxia: Status: Acute (12) Toxic metabolic encephalopathy: Status: Resolved (13) Depression: Status: Chronic (14) Hypokalemia: Status: Resolved (15) Hyponatremia: Status: Resolved Discharge Plan Disposition Patient Disposition: Home W/Home Health Services Condition: Improving Discharge Details Reason For Visit: Pneumonia Admit Date/Time: 05/17/23 19:47 Admit Provider: Levar Camp Attending Provider: Levar Camp Primary Care Provider: Dorothy Gibbs Hospital Course Hospital Course: Ms Monets is a 77 year old female with PMHx of asthma, hypertension, hyperlipidemia, depressive disorder, who was a patient on [facility] hospitalist service from 05/17/23 until 05/27/23 for sepsis due to legionella pneumonia, acute hypoxic respiratory failure (room air O2 sats 89%, was requiring 2L of O2 by NC to saturate in the 90s when she first came back), toxic metabolic encephalopathy. The patient had a negative CT of the head, tested negative for COVID-19, had a CXR revealing multifocal pneumonia. She had evidence of lactic acidosis without shock. She was started on empiric azithromycin, ceftazidime, one time order for vancomycin. Her blood and urine C&S came back negative. When her legionella urine antigen came back positive, she was switched to levofloxacin on 05/20/23. The patient had persistent fevers, finally defervescing after 05/23/23. Her CRP and procalcitonin had continued to decline as would be expected with appropriate treatment of infection.While she does have small bilateral pleural effusions on imaging, they appear too small for thoracenthesis. Her oxygen requirement improved (see below) to RA with occasional desaturations only at night with further workup of nocturnal hypoxia being ordered on discharge. Her mental status returned to baseline. From the standpoint of pneumonia, she has 4 more days of antibiotics to complete. Because of the hypoxic respiratory failure with rising oxygen needs (up to 5L of O2 by NC), a pulmonary embolism had to be ruled out. CT scanner was not functioning, and the patient was started on an empiric heparin drip. CTA chest was finally able to be obtained on 05/20/23 and was negative for a PE. Heparin drip was then discontinued. However, the patient did develop an anemia while on anticoagulation with hemoglobin going down to 6.7 from 11.5 on presentation. The source of her anemia ended up being a spontaneous bilateral retroperitoneal hemorrhage as seen on the CT chest/abdomen/pelvis on 05/22/23. She was transfused 2 units pRBCs with Hgb improving to 8.6 and remaining stable for the duration of her hospitalization. The patient did have a new leucocytosis noted on bloodwork on 05/25/23 after its initial resolution. This did not correlate with the decreasing CRP, procalcitonin, and patient's clinical status, suggesting a non-infectious cause of her leucocytosis. Because she had a PICC line placed for her antibiotics and she was not on chemical DVT prophylaxis due to having a retroperitoneal hemorrhage, a DVT in LUE was considered, and a venous doppler of LUE did confirm a possible basilic vein thrombosis on 05/26/23. Her PICC line was removed and she was switched to oral levofloxacin. This is being treated with elevation of LUE as well as with warm compresses. She is medically stable for discharge home today with home health physical therapy, as per recommendations of PT. She will need to have bloodwork done on 05/31/23 with results going to her PCP, Dr Gibbs. She is being sent home with orders for overnight oximetry. Care for patient in addition to completion of her discharge summary on day of discharge took 60 minutes. Home Meds and New Rx's Prescriptions: New ipratropium-albuterol 0.5 mg-3 mg(2.5 mg base)/3 mL Solution For Nebulization 3 ml UPD Q4H PRN PRN (Reason: shortness of breath or wheezing) Qty: 180 0RF acetaminophen 500 mg Tablet 1,000 mg PO Q8H PRN PRNQty: 30 0RF melatonin 3 mg Tablet 6 mg PO HS PRN PRN (Reason: Insomnia) Qty: 0 0RF levofloxacin 500 mg Tablet 500 mg PO DAILY@1600 Qty: 4 0RF guaifenesin [Mucus Relief ER] 600 mg Tablet Extended Release 12hr 600 mg PO BID PRN PRNQty: 30 0RF docusate sodium [Colace] 100 mg capsule 100 mg PO BID PRN PRN (Reason: constipation) Qty: 60 0RF tramadol 50 mg tablet 50 mg PO BID PRNQty: 10 0RF Bio-K plus 50 billion cell capsule,delayed release(DR/EC) 1 cap PO DAILY Qty: 14 0RF Continued clonazepam 0.5 mg tablet 0.5 mg PO QHS Qty: 30 0RF Rx Instructions: administer 30 minutes before bedtime losartan 100 mg tablet 100 mg PO DAILY Qty: 90 12RF albuterol sulfate [Ventolin HFA] 90 mcg/actuation HFA aerosol inhaler 2 puff inhalation Q6H PRN (Reason: shortness of breath or wheezing) Qty: 25.5 4RF Shingrix (PF) 50 mcg/0.5 mL suspension for reconstitution 0.5 ml IM ONCE Qty: 1 1RF Rx Instructions: as a single dose. Repeat in 2 months famotidine 40 mg tablet 40 mg PO DAILY Qty: 90 4RF atorvastatin 40 mg tablet 40 mg PO QPM Qty: 90 4RF Changed metoprolol succinate 50 mg tablet extended release 24 hr 100 mg PO DAILY Qty: 60 0RF Discontinued cefpodoxime 200 mg tablet 200 mg PO BID Qty: 20 0RF Rx Instructions: must administer with a meal/food Discharge Instructions Instructions: Tramadol (By mouth), Levofloxacin (By mouth), Superficial Thrombophlebitis (DC), Legionnaires Disease (DC) Additional Instructions: Finish your antibiotics as prescribed. Return to the hospital if you start to feel worse, if you have a fever, develop bleeding, chest pain, or worsening shortness of breath. Elevate your left arm and apply warm compresses to the arm every four hours x 20-30 minutes. Follow up with your PCP in 1-2 weeks. Bloodwork on 05/31/23. Care Plan Goals: Home with new home health PT Stand Alone Forms: Nursing Discharge Form Referrals: Dorothy Gibbs MD, [place] [Primary Care Provider] - 06/01/23 11:00 am Activity:: Activity as Tolerated Equipment/Supplies:: nebulizer Diet:: heart healthy Discharge Orders Discharge Orders: Discharge Order (Routine); Ordered 05/27/23 Ordered By: Lesvia Law Other Ambulatory Orders: Basic Metabolic Panel (Routine) Timeframe: 20230531 Facility: [facility] - Location: Laboratory Outpatient - [facility] Ordered By: Lesvia Law Complete Blood Count w/Diff (Routine) Timeframe: 20230531 Facility: [facility] - Location: Laboratory Outpatient - [facility] Ordered By: Lesvia Law Procalcitonin (DAILY AM) Timeframe: [id number] Facility: [facility] - Location: Laboratory Outpatient - [facility] Ordered By: Lesvia Law C-Reactive Protein (Routine) Timeframe: [id number] Facility: [facility] - Location: Laboratory Outpatient - [facility] Ordered By: Lesvia Law DS: Summary Time Spent with Patient providing and/or coordinating discharge services: Greater than 30 minutes Status at Discharge Functional status at discharge: uses cane/walker Overall status at discharge: patient is progressing back to baseline Mental Status: mental status grossly normal Speech and Movement: speech and movement normal Mood: congruent mood Affect: sad Exam Narrative Exam Narrative: General: A very pleasant elderly female who is A&Ox3, looks even better, watching [employer] channel Heart: RRR, no m/r/g Lungs: CTAB Abdomen: soft, nontender, nondistended Extremities: no e/c/c BLEs, 1+ pedal pulses B; PICC line removed from LUE. No obvious swelling Psych Mental Status: mental status grossly normal Speech and Movement: speech and movement normal Mood: congruent mood Affect: sad DS: Data Vitals/I&O Vitals and I&O: Vital Signs Temperature 36.7 C 05/27/23 11:06 Temperature Source Tympanic 05/27/23 11:06 Pulse 96 H 05/27/23 15:34 Pulse Rhythm Regular 05/27/23 11:14 Pulse 105 H 05/26/23 20:30 Respiratory Rate 16 05/27/23 15:25 Respiratory Effort Normal, Non-Labored 05/27/23 11:14 Respiratory Depth Shallow 05/27/23 11:14 Respiratory Pattern Normal 05/27/23 11:14 Blood Pressure 120/67 05/27/23 11:06 Blood Pressure Mean 69 05/17/23 20:30 Blood Pressure Position Supine 05/17/23 16:51 Pulse Oximetry 92 05/27/23 15:25 Oxygen Delivery Method Room Air 05/27/23 15:25 Oxygen Flow Rate 0 05/27/23 15:25 Pain Level 0 05/27/23 11:06 Comment Trialed turning off O2 while pt asleep. After 3 minutes sats gradually down to 90, then fluctuating in high 80s, as low as 85%. Intermittently briefly back up to 90-91%. Pt placed back on 1L NC for sleep. 05/27/23 05:40 Intake & Output 05/26/23 05/27/23 05/27/23 23:59 11:59 23:59 Intake Total 20 / 40 150 / 300 150 / 300 Output Total 700 / 1800 500 / 500 Balance -680 / -1760 -350 / -200 150 / -200 Intake: IV 20 / 40 Oral 150 / 300 150 / 300 Output: Urine 700 / 1800 500 / 500 Other: Urine Color Pale Yellow Urine Appearance Clear Clear Urine Odor None Voiding Methods Bedside Commode Bedside Commode Data Completed and Pending Completed studies during hospitalization [Text1]: CT head 05/17/23: No acute intracranial findings on this noninfused CT scan of the brain. CXR 05/17/23: Large infiltrate in the left upper lobe. Requires follow-up to resolution to rule out underlying malignancy. Smaller area of infiltrate in the right upper lobe as well as in the left lower lobe posterior basal segment. No obvious pleural effusions evident CXR 05/19/23; Persistent and slightly worsening bilateral lung infiltrates. No obvious pleural effusions. CTA chest 05/20/23: 1. Extensive bilateral confluent pulmonary infiltrates predominately involving the upper lobes.. No cavitation. There are moderate size non loculated bilateral pleural effusions evident. No obvious intrathoracic adenopathy. These findings were not evident on the uppermost images of an abdominal CT scan performed 05/15/2023. 2. No evidence of acute pulmonary emboli. 3. No evidence of aortic dissection nor pericardial effusion. CXR 05/21/23: No radiographic improvement in the extensive bilateral pulmonary infiltrates. No pleural effusions. PICC line is in good position CT chest/abdomen/pelvis 05/22/23: 1. Prominent bilateral retroperitoneal psoas hematomas, left larger than right. There is some ascites also evident which is related to the hematomas. No evidence of organ lacerations. Spleen size normal. 2. Large areas of non cavitated infiltrate in both upper lobes, also involving the lingular segment of the left lung and posterior basal segment left lower lobe. There is presently no cavitation. Significant bilateral pleural effusions, left larger than right and associated with some volume loss in the basal segments of the lower lobes. 3. PICC line in satisfactory position in the SVC. 4. Other findings as above. CXR 05/23/23: Unchanged appearance of the extensive bilateral infiltrates without radiographic change compared to yesterday.Please note that although difficult to visualize on portable view, there are bilateral pleural effusions here which were best seen on yesterday's CT scan, both moderate in size and left larger than right. Venous doppler 05/26/23: PICC line seen in basilic vein through subclavian vein. Question of thrombus in distal basilic vein. Labs on day of discharge: Labs from last 24 hours 05/27/23 06:35 WBC 17.21 H RBC 3.04 L Hgb 8.9 L Hct 26.9 L MCV 89 MCH 29.3 MCHC 33.1 RDW 13.1 Plt Count 399 MPV 9.7 Immature Gran % 1.9 Neutrophils % 79.1 Lymphocytes % 9.9 Monocytes % 7.5 Eosinophils % 1.3 Basophils % 0.3 Nucleated RBC % 0.0 Absolute Neutrophils 13.61 H Absolute Lymphocytes 1.70 Absolute Monocytes 1.29 H Absolute Eosinophils 0.22 Absolute Basophils 0.05 Sodium 137 Potassium 4.0 Chloride 102 Carbon Dioxide 27.3 Anion Gap 7.7 BUN 19 H Creatinine 1.3 H Est GFR (CKD-EPI 2020) 42.88 Glucose 110 H Calcium 9.2 Magnesium 1.9 C-Reactive Protein 5.89 H PFSH All Active Problems (Updated 05/27/23 @ 16:09 by Lesvia Law MD) Depression (Chronic) Leucocytosis (Acute) Nocturnal hypoxia (Acute) Constipation (Acute) Legionella pneumonia (Acute) Acute thrombosis of left basilic vein (Acute) Discharge planning issues (Acute) DVT prophylaxis (Acute) Acute blood loss anemia (Acute) Retroperitoneal bleed (Acute) Pneumonia (Acute) Sepsis (Acute) Acute hypoxemic respiratory failure (Acute) Fever (Acute) Acute pyelonephritis (Acute) Splinter of finger (Acute) Tachycardia (Acute) 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) Optic nerve swelling (Acute) Decreased hearing of both ears (Acute) Change in mole (Acute) Atrophy of vagina (Acute) Lumbar arthropathy (Acute) Insomnia (Acute) Acute bilateral low back pain (Acute) Foot pain (Acute) Shoulder pain, right (Acute) Abnormal renal function (Chronic 09/14/13) Anxiety (Chronic) Depressive disorder (Chronic) Essential hypertension (Chronic) GERD (gastroesophageal reflux disease) (Chronic 04/17/14) Hiatal hernia (Chronic) Hyperlipidemia (Chronic 02/14/13) Osteopenia (Chronic) T-scores of -1.3 Medical History Bruit Carpal tunnel syndrome of right wrist (11/15/13) Corneal abrasion (05/20/00) Papanicolaou smear of vagina with atypical squamous cells of undetermined significance (ASC-US) (05/20/03) Polyp of corpus uteri Diabetes mellitus Right carotid bruit Corneal abrasion, left 05/20/00 Pap smear vag w ASC-US 05/20/03 neg. high risk HPV Abdominal pain Acquired trigger finger multiple fingers affected Cataract (02/15/14) Asthma GERD (gastroesophageal reflux disease) HTN (hypertension) Hypercholesterolemia Surgical History History of eye surgery Status post carpal tunnel release S/P carpal tunnel release H/O eye surgery 06/21/00 left S/P tubal ligation Open Carpal Tunnel release 01/23/14; RIGHT EYE SURGERY 2000-LEFT Family History Mother , SPINAL STENOSIS at age 80. PMR (polymyalgia rheumatica) Father Diabetes Essential hypertension Depression Heart disease Hyperlipidemia Stroke Brother Essential hypertension Hyperlipidemia Brother Diabetes Essential hypertension Heart disease stents Hyperlipidemia Stroke Brother Essential hypertension Heart disease Bypass Hyperlipidemia Grandfather Neoplasm BLADDER Asthma Grandfather Stroke Grandmother Diabetes Heart disease Neoplasm LEUKEMIA Daughter Asthma Daughter Asthma Social History Smoking/Tobacco Use Status: Never Second Hand Exposure: Yes Smoking risk assessment performed?: Yes Alcohol Intake: current Alcohol Intake frequency: holidays/special occasions only Alcohol type: wine Drug use: Never Substance use type: does not use Caregiver/Support person: No Household members: none Housing: house Communication Needs: Hard of Hearing and Corrective Lenses Do you need help understanding health information?: Never Pets and animals: Yes Pets and animals: cat(s) Sexually active: No Do you think of yourself as: straight/heterosexual Current gender identity: female What is your relationship status?: How often do you talk on the phone with friends or family?: three or more times per week How often do you get together with friends or relatives?: three or more times per week How often do you attend amish or scientologist services?: decline to answer Do you belong to any clubs or organized social groups?: no Panel score (0-1 are the most socially isolated patients): 1 [place]lynn/Zoroastrianism: Faith Seatbelt use: always Do you feel safe at home: Yes Do you feel safe in your relationship?: Yes Time Spent with Patient Time Spent with Patient: 45-69 minutes Time was spent: preparing to see the patient(eg.review tests), obtaining and/or reviewing separately otained hiistory, ordering medications,tests, procedures, referring, communicating with other health career portals teacher, indepentently interpreting results, counseling the patient and care coordination
[2023-05-27] MEDS: levoFLOXacin 500 MG TAB PO (16:35)
== END 2023-05-27 17:32 | disposition home health service (06) | DRG 871 ==
LOC: ER 19:04 → MS 20:43
PROVIDERS: Family Medicine; Internal Medicine; Admitting Provider General Practice; Emergency Provider Student in an Organized Health Care Education/Training Program; PCP Family Medicine; Visit Provider General Practice
DX: A41.89 Other specified sepsis; A48.1 Legionnaires' disease; J96.01 Acute respiratory failure with hypoxia; K68.3 Retroperitoneal hematoma; G92.8 Other toxic encephalopathy; E87.1 Hypo-osmolality and hyponatremia; D62 Acute posthemorrhagic anemia; I82.612 Acute embolism and thrombosis of superficial veins of left upper extremity; R65.20 Severe sepsis without septic shock; I10 Essential (primary) hypertension; E78.5 Hyperlipidemia, unspecified; K21.9 Gastro-esophageal reflux disease without esophagitis; R74.01 Elevation of levels of liver transaminase levels; D72.829 Elevated white blood cell count, unspecified; R00.0 Tachycardia, unspecified; H90.3 Sensorineural hearing loss, bilateral; G47.00 Insomnia, unspecified; F41.9 Anxiety disorder, unspecified; F32.A Depression, unspecified; K44.9 Diaphragmatic hernia without obstruction or gangrene; M85.80 Other specified disorders of bone density and structure, unspecified site; E11.9 Type 2 diabetes mellitus without complications; J45.909 Unspecified asthma, uncomplicated; E78.00 Pure hypercholesterolemia, unspecified; T45.515A Adverse effect of anticoagulants, initial encounter; Y84.8 Other medical procedures as the cause of abnormal reaction of the patient, or of later complication, without mention of misadventure at the time of the procedure
CPT/HCPCS: 36569; 00123; 36415; 36573; 71045; 71275; 74177; 80048; 80053; 82805; 84145; 85027; 86850; 86900; 86901; 86920; 87040; 87449; 87493; 87635; 87637; 94618; 96365; 96367; 97110; 97112; 97116; 97162; 97530; 99291; 70450; 71046; 71260; 81003; 81015; 82140; 83605; 83735; 84439; 84443; 85014; 85018; 85025; 85730; 86140; 93971; 94640; 94667; 94668; 94760; 99222; 99232; 99233; 99239; J0131; J0456; J0713; J0780; J1650; J1956; J2310; J2930; J3490; J7620; P9016

== ENCOUNTER 2023-05-27 10:48 | Outpatient (CLI) | payer MEDICARE, SELFPAY | END 2023-05-27 10:49 | disposition home or self-care (01) | PROVIDERS: PCP Family Medicine; Visit Provider Internal Medicine | DX: G47.34 Idiopathic sleep related nonobstructive alveolar hypoventilation | CPT/HCPCS: 94762 ==

== ENCOUNTER 2023-06-10 03:26 | Outpatient (CLI) | payer MEDICARE, SELFPAY ==
[2023-06-10 12:14] LABS: HCT 35.9 % (36.0-46.0); HGB 11.4 g/dL (11.2-15.7); MCH 29.8 pg (27.0-33.0); MCHC 31.8 % (32.0-36.0); MCV 94 fL (80-95); MPV 11.2 fL (8.0-11.0); Platelet Count 419 10^3/uL (130-400); RBC 3.82 10^6/uL (3.93-5.22); RDW 13.7 % (11.7-14.6); RDW-SD 46.8 fL; WBC 7.42 10^3/uL (4.4-10.8)
[2023-06-10 12:33] LABS: ALT 33 U/L (14-59); AST 19 U/L (15-37); Albumin 3.6 g/dL (3.4-5.0); Alkaline Phosphatase 93 U/L (46-116); Anion Gap 8.2 mmol/L (3-11); BUN 14 mg/dL (7-18); Bilirubin, Total 0.8 mg/dL (0.2-1.0); CO2 27.8 mmol/L (21.0-32.0); CREATININE 1.4 mg/dL (0.55-1.02); Calcium 9.9 mg/dL (8.5-10.1); Chloride 102 mmol/L (98-107); Estimated GFR 39.23 (mL/min/1.73m2); Glucose 126 mg/dL (74-106); Potassium 3.7 mmol/L (3.5-5.1); Sodium 138 mmol/L (136-145); TSH (W/Ref FT4) 2.61 uIU/mL (0.36-3.74); Total Protein 7.8 g/dL (6.4-8.2)
== END 2023-06-10 03:27 | disposition home or self-care (01) ==
LOC: LOS 03:27
PROVIDERS: PCP Family Medicine; Visit Provider Family Medicine
DX: I10 Essential (primary) hypertension (principal); E03.9 Hypothyroidism, unspecified; D50.0 Iron deficiency anemia secondary to blood loss (chronic)
CPT/HCPCS: 36415; 80053; 85027; 84443

== ENCOUNTER 2023-08-16 05:08 | Outpatient (CLI) | payer MEDICARE, SELFPAY ==
[2023-08-16 12:16] LABS: HCT 39.6 % (36.0-46.0); HGB 12.6 g/dL (11.2-15.7); MCH 29.6 pg (27.0-33.0); MCHC 31.8 % (32.0-36.0); MCV 93 fL (80-95); MPV 11.7 fL (8.0-11.0); Platelet Count 290 10^3/uL (130-400); RBC 4.26 10^6/uL (3.93-5.22); RDW 12.5 % (11.7-14.6); RDW-SD 42.7 fL; WBC 7.14 10^3/uL (4.4-10.8)
[2023-08-16 12:28] LABS: Iron 110 ug/dL (50-170)
[2023-08-16 12:35] LABS: Hemoglobin A1C 5.6 % (<5.7)
[2023-08-16 12:36] LABS: ALT 38 U/L (14-59); AST 22 U/L (15-37); Albumin 3.8 g/dL (3.4-5.0); Alkaline Phosphatase 63 U/L (46-116); Anion Gap 9.2 mmol/L (3-11); BUN 27 mg/dL (7-18); Bilirubin, Total 0.6 mg/dL (0.2-1.0); CO2 27.8 mmol/L (21.0-32.0); CREATININE 1.3 mg/dL (0.55-1.02); Calcium 10.1 mg/dL (8.5-10.1); Chloride 106 mmol/L (98-107); Estimated GFR 42.88 (mL/min/1.73m2); Glucose 99 mg/dL (74-106); Potassium 4.1 mmol/L (3.5-5.1); Sodium 143 mmol/L (136-145); TSH (W/Ref FT4) 2.31 uIU/mL (0.36-3.74)
== END 2023-08-16 05:09 | disposition home or self-care (01) ==
LOC: LOS 05:09
PROVIDERS: PCP Family Medicine; Visit Provider Family Medicine
DX: I10 Essential (primary) hypertension (principal); D64.9 Anemia, unspecified; E11.9 Type 2 diabetes mellitus without complications; E03.9 Hypothyroidism, unspecified; L65.9 Nonscarring hair loss, unspecified
CPT/HCPCS: 36415; 80053; 85027; 83036; 83540; 84443

== ENCOUNTER 2024-12-09 17:34 | Emergency (ER) | payer MEDICARE, SELFPAY ==
[2024-12-09 17:42] VITALS: BP 164/79; PULSE 68; RESP 16; TEMP 36.7; O2SAT 99
--- NOTE | 2024-12-09 18:00 | DI.RAD_ITS ---
Exam(s) XR HAND RT COMPLETE EXAM: XR HAND RT COMPLETE CLINICAL HISTORY: pain, fall. TECHNIQUE: 2D digital imaging was performed of the right hand. Three images were obtained. AP, lateral and oblique views were obtained. COMPARISON: No exams were available for comparison FINDINGS: BONES: There is an acute nondisplaced fracture through the proximal metaphysis of the proximal phalanx of the ring finger. No bony destructive lesion is seen. JOINTS: No dislocation present. Moderate degenerative changes are seen in the hand. SOFT TISSUE: Normal. IMPRESSION: 1. Acute nondisplaced fracture of the proximal metaphysis of the proximal phalanx of the ring finger. 2. Findings were discussed with Dr. Marin at 9:40 a.m. on 12/10/2024. 3. The preliminary [facility] report was reviewed. DATA REPOSITORY: RADIATION DOSE DELIVERED:
--- NOTE | 2024-12-09 18:09 | ED.GENADUL_ITS ---
Discharge Plan Disposition Patient Disposition: Home Condition: Stable Discharge Details Clinical Impression: Abrasion, Fall, Contusion of hand, Finger sprain Primary Care Provider: Dorothy Gibbs ED Provider: Vianney Ramírez Home Meds and New Rx's Prescriptions: No Action clonazepam 0.5 mg tablet 0.5 mg PO QHS Qty: 30 0RF Rx Instructions: administer 30 minutes before bedtime famotidine 40 mg tablet 40 mg PO DAILY Qty: 90 4RF albuterol sulfate [Ventolin HFA] 90 mcg/actuation HFA aerosol inhaler 2 puff inhalation Q6H PRN (Reason: shortness of breath or wheezing) Qty: 25.5 4RF pantoprazole [Protonix] 40 mg tablet,delayed release (DR/EC) 40 mg PO DAILY Qty: 90 4RF atorvastatin 40 mg tablet 40 mg PO QPM Qty: 90 4RF losartan 100 mg tablet 100 mg PO DAILY Qty: 90 12RF mirtazapine 7.5 mg tablet 7.5 mg PO QHS Qty: 30 4RF metoprolol succinate 50 mg tablet extended release 24 hr 75 mg PO DAILY Qty: 135 5RF acetaminophen 500 mg Tablet 1,000 mg PO Q8H PRN PRNQty: 30 0RF Discharge Instructions Instructions: Finger Sprain (DC), Using Cold for Pain, Minor Contusion ED Additional Instructions: Wear splint for comfort. Ice and elevate. Use Tylenol and/or Motrin as needed for pain. Follow-up with orthopedics if not improved. Referrals: [facility] [Provider Group] Referral Note: Call for follow-up if not improved Discharge Data Discharge Physician: Vianney Ramírez [facility] General Date/Time Provider Initiated Documentation: 12/09/24 17:38 . HPI Narrative: 79-year-old female presents for evaluation after fall. She states that she was walking her dog when he got excited and pulled her down. She landed on both her knees and hands. It took her a few minutes to get up. She is able to ambulate without any difficulty. She has abrasions to anterior knee bilaterally. She also has significant pain in her right hand. She feels like she is unable to move her fourth finger appropriately. No pain in her left hand. She did not hit her head or lose consciousness. No neck or back pain. No numbness or tingling in her extremities. Related Data Home Medications ?Medication ?Instructions ?Recorded ?Confirmed albuterol sulfate 90 mcg/actuation 2 puff inhalation Q 6H PRN 11/05/22 12/09/24 aerosol inhaler (Ventolin HFA) shortness of breath or wheezing #25.5 grams acetaminophen 500 mg tablet 1,000 mg (2 x 500 mg) PO Q 8H PRN 05/27/23 12/09/24 PRN #30 tabs pantoprazole 40 mg tablet,delayed 40 mg PO DAILY #90 t abs 10/10/23 12/09/24 release (Protonix) atorvastatin 40 mg tablet 40 mg PO QPM #90 tabs 12/09/24 losartan 100 mg tablet 100 mg PO DAILY #90 tab-caps 12/13/23 12/09/24 clonazepam 0.5 mg tablet 0.5 mg PO QHS #30 tabs 03/1612/09/24 famotidine 40 mg tablet 40 mg PO DAILY #90 tabs 02/2012/09/24 mirtazapine 7.5 mg tablet 7.5 mg PO QHS #30 tabs 09/2112/09/24 metoprolol succinate 50 mg 75 mg (1.5 x 50 mg) PO [place] Y #135 11/10/24 12/09/24 tablet,extended release 24 hr tabs Previous Rx's ?Medication ?Instructions ?Recorded albuterol sulfate 90 mcg/actuation 2 puff inhalation Q 6H PRN 11/05/22 aerosol inhaler (Ventolin HFA) shortness of breath or wheezing #25.5 grams acetaminophen 500 mg tablet 1,000 mg (2 x 500 mg) PO Q 8H PRN 05/27/23 PRN #30 tabs pantoprazole 40 mg tablet,delayed 40 mg PO DAILY #90 t abs 10/10/23 release (Protonix) atorvastatin 40 mg tablet 40 mg PO QPM #90 tabs losartan 100 mg tablet 100 mg PO DAILY #90 tab-caps 12/13/23 clonazepam 0.5 mg tablet 0.5 mg PO QHS #30 tabs 03/16 famotidine 40 mg tablet 40 mg PO DAILY #90 tabs 02/20 12/12 mirtazapine 7.5 mg tablet 7.5 mg PO QHS #30 tabs 09/21 metoprolol succinate 50 mg 75 mg (1.5 x 50 mg) PO [place] Y #135 11/10/24 tablet,extended release 24 hr tabs Allergies Allergy/AdvReac Type Severity Reaction Status Date / Time bupropion Allergy Severe Anaphylaxis Unverified 12/09/24 17:46 Penicillins Allergy Mild Large Unverified 12/09/24 17:46 local reaction from IM injection donepezil AdvReac Severe nightmare Verified 12/09/24 17:46 codeine AdvReac Mild Constipatio Unverified 12/09/24 17:46 n lisinopril AdvReac Mild Cough Unverified 12/09/24 17:46 erythromycin base AdvReac Unknown Unverified 12/09/24 17:46 hydrochlorothiazide AdvReac Vertigo; Verified 12/09/24 17:46 Dry eyes General Stated Complaint: Orthopedic BORIS: 4 Review of Systems Narrative: Remainder of review of systems otherwise negative except for as noted in the HPI x 10. Exam Narrative Exam Narrative: General: non-toxic, no respiratory distress, comfortable HEENT: normocephalic, atraumatic, lids and lashes normal, PERRL, EOMI, anicteric sclera, no conjunctival injection, moist oral mucosa Neck: No vertebral tenderness Musculoskeletal: Abrasions to anterior knees bilaterally, no pain to palpation of patella, able to fully flex and extend at knees, pain to palpation over right 3rd, 4th and 5th metacarpals, decreased range of motion right fourth finger secondary to pain, able to fully flex and extend remainder of fingers, sensation tact, 2+ radial pulses, otherwise full range of motion of arms and legs, no tenderness to palpation. no clubbing, cyanosis, or edema Neurologic: appropriate for age, strength normal Psych: alert and oriented Skin: As above, otherwise no petechiae, no lesions, warm and dry Course Vital Signs Vital signs: Vital Signs Temperature 36.7 C 12/09/24 17:42 Pulse 68 12/09/24 17:42 Respiratory Rate 16 12/09/24 17:42 Blood Pressure 164/79 H 12/09/24 17:42 Pulse Oximetry 99 12/09/24 17:42 Temperature 36.7 C 12/09/24 17:42 Temperature Source Oral 12/09/24 17:42 Pulse 68 12/09/24 17:42 Respiratory Rate 16 12/09/24 17:42 Blood Pressure 164/79 H 12/09/24 17:42 Pulse Oximetry 99 12/09/24 17:42 Oxygen Delivery Method Room Air 12/09/24 17:42 Oxygen Flow Rate 0 12/09/24 17:42 Pain Level 8 12/09/24 17:53 Medical Decision Making 79-year-old female presents for evaluation after fall. She does have abrasion to both of her knees. She has significant pain to right hand. Will x-ray. She is neurologically intact. No vertebral tenderness. Will treat with Motrin. X- ray right hand is negative for any fracture or dislocation. Patient is to be placed in a splint for comfort. We talked about the possibility of sprain and follow-up with orthopedics if not improved. She will continue taking Tylenol and Motrin as needed. She understands indications to return. Quality:SDOH Health Related Social Needs: Health related social needs details none voiced PFS All Active Problems (Updated 12/09/24 @ 19:32 by Vianney Ramírez MD) Finger sprain (Acute) Contusion of hand (Acute) Fall (Acute) Abrasion (Acute) Left shoulder pain (Acute) B12 deficiency (Acute) Depression (Chronic) Leucocytosis (Acute) Nocturnal hypoxia (Acute) Constipation (Acute) Legionella pneumonia (Acute) Acute thrombosis of left basilic vein (Acute) Acute blood loss anemia (Acute) Retroperitoneal bleed (Acute) Pneumonia (Acute) Sepsis (Acute) Acute hypoxemic respiratory failure (Acute) Fever (Acute) Acute pyelonephritis (Acute) Splinter of finger (Acute) Tachycardia (Acute) 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) Optic nerve swelling (Acute) Decreased hearing of both ears (Acute) Change in mole (Acute) Atrophy of vagina (Acute) Lumbar arthropathy (Acute) Insomnia (Acute) Acute bilateral low back pain (Acute) Foot pain (Acute) Shoulder pain, right (Acute) Abnormal renal function (Chronic 09/14/13) Anxiety (Chronic) Depressive disorder (Chronic) Essential hypertension (Chronic) GERD (gastroesophageal reflux disease) (Chronic 04/17/14) Hiatal hernia (Chronic) Hyperlipidemia (Chronic 02/14/13) Osteopenia (Chronic) T-scores of -1.3 Medical History Bruit Carpal tunnel syndrome of right wrist (11/15/13) Corneal abrasion (05/20/00) Papanicolaou smear of vagina with atypical squamous cells of undetermined significance (ASC-US) (05/20/03) Polyp of corpus uteri Diabetes mellitus Right carotid bruit Corneal abrasion, left 05/20/00 Pap smear vag w ASC-US 05/20/03 neg. high risk HPV Abdominal pain Acquired trigger finger multiple fingers affected Cataract (02/15/14) Asthma GERD (gastroesophageal reflux disease) HTN (hypertension) Hypercholesterolemia Surgical History History of eye surgery Status post carpal tunnel release S/P carpal tunnel release H/O eye surgery 06/21/00 left S/P tubal ligation Open Carpal Tunnel release 01/23/14; RIGHT EYE SURGERY 2000-LEFT Family History Mother , SPINAL STENOSIS at age 80. PMR (polymyalgia rheumatica) Father Diabetes Essential hypertension Depression Heart disease Hyperlipidemia Stroke Brother Essential hypertension Hyperlipidemia Brother Diabetes Essential hypertension Heart disease stents Hyperlipidemia Stroke Brother Essential hypertension Heart disease Bypass Hyperlipidemia Grandfather Neoplasm BLADDER Asthma Grandfather Stroke Grandmother Diabetes Heart disease Neoplasm LEUKEMIA Daughter Asthma Daughter Asthma Social History Smoking/Tobacco Use Status: Never Second Hand Exposure: Yes Smoking risk assessment performed?: Yes Alcohol Intake: current Alcohol Intake frequency: holidays/special occasions only Alcohol type: wine Drug use: Never Substance use type: does not use Caregiver/Support person: No Household members: none Housing: house Communication Needs: Hard of Hearing and Corrective Lenses Do you need help understanding health information?: Never Pets and animals: Yes Pets and animals: cat(s) Sexually active: No Do you think of yourself as: straight/heterosexual Current gender identity: female What is your relationship status?: How often do you talk on the phone with friends or family?: three or more times per week How often do you get together with friends or relatives?: three or more times per week How often do you attend oriental orthodox or faith services?: decline to answer Do you belong to any clubs or organized social groups?: no Panel score (0-1 are the most socially isolated patients): 1 [place]/Denominational: Shinto Seatbelt use: always Do you feel safe at home: Yes Do you feel safe in your relationship?: Yes
[2024-12-09] MEDS: Acetaminophen 500 MG TAB 1000 MG PO (18:37)
--- NOTE | 2024-12-09 19:28 | DI.VRAD_ITS ---
PROCEDURE INFORMATION: Exam: XR Right Hand Exam date and time: 12/09/2024 6:23 PM Age: 79 years old Clinical indication: Injury or trauma; Blunt trauma (contusions or hematomas); Hand; Right; Injury details: Pain, fall TECHNIQUE: Imaging protocol: Radiologic exam of the right hand. Views: 3 or more views. COMPARISON: No relevant prior studies available. FINDINGS: Bones/joints: There are degenerative changes of the DIP joints of the 2nd and 3rd digits with mild PIP joint space narrowing 4th digit. Bony alignment is anatomic. No evidence for fracture. Soft tissues: Normal. IMPRESSION: No evidence for fracture. Dictated and Authenticated by: Mariia Davis MD. Orderin Darrell Faith MD
== END 2024-12-09 19:53 | disposition home or self-care (01) ==
PROVIDERS: Emergency Provider Emergency Medicine Emergency Medical Services; PCP Family Medicine
DX: S62.644A Nondisplaced fracture of proximal phalanx of right ring finger, initial encounter for closed fracture (principal); S80.212A Abrasion, left knee, initial encounter; S80.211A Abrasion, right knee, initial encounter; S60.221A Contusion of right hand, initial encounter; E11.9 Type 2 diabetes mellitus without complications; I10 Essential (primary) hypertension; E78.00 Pure hypercholesterolemia, unspecified; E78.5 Hyperlipidemia, unspecified; W01.0XXA Fall on same level from slipping, tripping and stumbling without subsequent striking against object, initial encounter; Y93.K1 Activity, walking an animal; Y92.480 Sidewalk as the place of occurrence of the external cause
CPT/HCPCS: 99283; 73130

== ENCOUNTER 2024-12-18 09:58 | Outpatient (CLI) | payer MEDICARE, SELFPAY ==
--- NOTE | 2024-12-18 09:00 | DI.RAD_ITS ---
Exam(s) XR FINGER RT RING EXAM: XR FINGER RT RING INDICATION: F/U RRF INJURY. COMPARISON: CR,XR XR HAND RT COMPLETE from 12/09/2024 TECHNIQUE: 2D digital imaging was performed. Two views. FINDINGS: The fracture at the base of the proximal phalanx remains nondisplaced. Degenerative changes are again noted the interphalangeal joints. DATA REPOSITORY: RADIATION DOSE DELIVERED:
== END 2024-12-18 09:59 | disposition home or self-care (01) ==
LOC: DIORS 09:58
PROVIDERS: PCP Family Medicine; Referring Provider Family Medicine; Visit Provider Student in an Organized Health Care Education/Training Program
DX: S62.644A Nondisplaced fracture of proximal phalanx of right ring finger, initial encounter for closed fracture (principal); X58.XXXA Exposure to other specified factors, initial encounter
CPT/HCPCS: 99213; 73140

== ENCOUNTER 2025-01-22 10:50 | Outpatient (CLI) | payer MEDICARE, SELFPAY ==
--- NOTE | 2025-01-22 10:38 | DI.RAD_ITS ---
Exam(s) XR HAND RT COMPLETE XR FINGER RT RING EXAM: XR HAND RT COMPLETE and XR finger RT ring CLINICAL HISTORY: right hand pain. TECHNIQUE: 2D digital imaging was performed of the right finger and hand. Six images were obtained. AP, lateral and oblique views were obtained. COMPARISON: CR,XR XR HAND RT COMPLETE from 12/09/2024 CR XR FINGER RT RING from 12/18/2024 FINDINGS: BONES: There has been no change in alignment of the fracture involving the proximal phalanx of the right ring finger. Callus formation has developed about the fracture consistent with some interval healing. No bony destructive lesion is seen. JOINTS: No dislocation present. There are degenerative changes seen in the hand and wrist. SOFT TISSUE: Normal. IMPRESSION: Stable alignment of the fracture involving the proximal phalanx of the ring finger with evidence of healing. DATA REPOSITORY: RADIATION DOSE DELIVERED:
== END 2025-01-22 10:51 | disposition home or self-care (01) ==
LOC: DIORS 10:50
PROVIDERS: PCP Family Medicine; Referring Provider Family Medicine; Visit Provider Student in an Organized Health Care Education/Training Program
DX: S62.644D Nondisplaced fracture of proximal phalanx of right ring finger, subsequent encounter for fracture with routine healing (principal); M19.041 Primary osteoarthritis, right hand; X58.XXXD Exposure to other specified factors, subsequent encounter
CPT/HCPCS: 99213; 73130; 73140

== ENCOUNTER 2025-03-20 03:10 | Outpatient (CLI) | payer MEDICARE, SELFPAY ==
[2025-03-20 14:38] LABS: Hemoglobin A1C 5.7 % (<5.7)
[2025-03-20 15:26] LABS: ALT 29 U/L (14-59); AST 19 U/L (15-37); Albumin 4.2 g/dL (3.4-5.0); Alkaline Phosphatase 71 U/L (46-116); Anion Gap 9.7 mmol/L (3-11); BUN 22 mg/dL (7-18); Bilirubin, Total 0.5 mg/dL (0.2-1.0); CO2 28.3 mmol/L (21.0-32.0); Calcium 9.6 mg/dL (8.5-10.1); Calculated LDL 100 mg/dL (<100); Chloride 105 mmol/L (98-107); Cholesterol 176 mg/dL (<200); Estimated GFR 38.75 (mL/min/1.73m2); Glucose 56 mg/dL (74-106); HDL Cholesterol 48 mg/dL (>or=50); Potassium 4.3 mmol/L (3.5-5.1); Sodium 143 mmol/L (136-145); Total Protein 7.1 g/dL (6.4-8.2); Triglyceride 140 mg/dL (<150); Vitamin B12 179 pg/mL (193-986)
[2025-03-21 10:31] LABS: Lyme Ab w Rflx to Lyme Confirm Negative (Negative)
[2025-03-22 19:30] LABS: B. miyamotoi PCR Negative (Negative); Babesia divergens/MO-1 Negative (Negative); Ehrlichia muris eauclairensis Negative (Negative)
== END 2025-03-20 03:11 | disposition home or self-care (01) ==
LOC: LOS 03:11
PROVIDERS: PCP Family Medicine; Visit Provider Family Medicine
DX: E53.8 Deficiency of other specified B group vitamins (principal); I10 Essential (primary) hypertension; W57.XXXA Bitten or stung by nonvenomous insect and other nonvenomous arthropods, initial encounter; E11.9 Type 2 diabetes mellitus without complications
CPT/HCPCS: 36415; 80053; 80061; 87798; 82607; 83036; 86618

== ENCOUNTER 2025-04-10 08:52 | Outpatient (CLI) | payer MEDICARE, SELFPAY ==
--- NOTE | 2025-04-10 10:44 | DI.RAD_ITS ---
Exam(s) XR HIP LT COMPLETE AP PELVIS EXAM: XR HIP LT COMPLETE AP PELVIS CLINICAL HISTORY: left hip pain,[id number]. TECHNIQUE: 2D digital imaging was performed of the left hip. Two views were obtained. AP pelvis and lateral left hip views were obtained. COMPARISON: No exams were available for comparison FINDINGS: BONES: No acute fracture is present. No bony destructive lesion is seen. JOINTS: No dislocation present. The hips are well maintained. SOFT TISSUE: Normal. IMPRESSION: Unremarkable radiographs of the left hip. DATA REPOSITORY: RADIATION DOSE DELIVERED:
== END 2025-04-10 09:12 ==
LOC: DI 08:53
PROVIDERS: PCP Family Medicine; Visit Provider Family Medicine
DX: M25.552 Pain in left hip (principal)
CPT/HCPCS: 73502

== ENCOUNTER → 2025-06-11 15:00 | Outpatient (BNVA) | payer MEDICARE, SELFPAY | PROVIDERS: PCP Family Medicine; Referring Provider Family Medicine; Visit Provider Student in an Organized Health Care Education/Training Program | DX: M67.441 Ganglion, right hand (principal) | CPT/HCPCS: 99213 ==